=== PATIENT | female | born 1955 | race Caucasian/White ===

== ENCOUNTER → 2016-05-21 | Outpatient (CLI) | payer OTHER ==
[~2016-05-21] MED LIST: ADVIN50050 INH; ALPR-411 PO; ASPCH81X PO; CEPH500C PO; CMP10 PO; CYM/30 PO; DULO60CA44 PO; ESTCR PV; FLV1 PO; GABA600T PO; IPRA1AER2 INH; LDN500 PO; LIOT5TAB9 PO; METH2.5T PO; METH5TAB2 PO; MIRA100T PO; MORP30TA PO; MTH10 PO; MTH25 PO; ONDA4TAB10 SL; OXYM0.0592 NAE; POLY335019 PO; PREG1CAP70 PO; PRLSR20 PO; SUMA100T15 PO; TRAM-10 PO; TRAZ1TAB8 PO
== END | disposition home or self-care (01) ==
LOC: C.LABSPEC 05-14 15:22
DX: D64.9 Anemia, unspecified (principal)

== ENCOUNTER 2016-09-09 16:17 | Emergency (ER) | payer OTHER ==
[~2016-09-09] VITALS: Ht 167.6 cm; Wt 65.0 kg
[~2016-09-09 16:17] MED LIST changes: -ADVIN50050 INH; -ALPR-411 PO; -ASPCH81X PO; -CEPH500C PO; -CMP10 PO; -CYM/30 PO; -DULO60CA44 PO; -ESTCR PV; -FLV1 PO; -IPRA1AER2 INH; -LDN500 PO; -LIOT5TAB9 PO; -METH5TAB2 PO; -MIRA100T PO; -MTH25 PO; -ONDA4TAB10 SL; -OXYM0.0592 NAE; -POLY335019 PO; -PREG1CAP70 PO; -PRLSR20 PO; -SUMA100T15 PO; -TRAM-10 PO; -TRAZ1TAB8 PO
[2016-09-09 16:20] VITALS: TEMP 36.7; Ht 167.6 cm; Wt 65.0 kg
[2016-09-09] MEDS ORDERED: SODIUM CHLORIDE 0.9% 500ML 500 ML IV STA (16:32)
[2016-09-09] MEDS ORDERED: OPTIRAY 320 IV PRN (16:45)
[2016-09-09 16:54] LABS: BASO % 0.6 %; BASO ABS # 0.05 K/uL (0-0.2); COMPLETE YES; EOS % 4.8 %; HEMATOCRIT 33.3 % (37-47); IG% 0.3 %; LYMPH ABS # 2.86 K/uL (1.2-3.4); MEAN CELL VOLUME 98.8 fL (80-100); MEAN CORPUSCULAR HEMOGLOBIN 33.2 pg (25-34); MEAN CORPUSCULAR HGB CONC 33.6 g/dl (32-36); MONO % 7.4 %; NEUT % 50.9 %; PLATELET COUNT 417 K/uL (130-400); RED BLOOD COUNT 3.37 M/uL (4.2-5.4); WHITE BLOOD COUNT 7.95 K/uL (4.8-10.8)
[2016-09-09] MEDS ORDERED: FLV1 PO (16:57)
[2016-09-09 17:03] LABS: URINE APPEARANCE CLEAR (CLEAR); URINE BILIRUBIN NEG (NEG); URINE COLOR DK YELLOW; URINE EPITHELIAL CELL AUTO >30 /lpf (0-5); URINE NITRITE NEG (NEG); URINE SPECIFIC GRAVITY 1.023 (1.000-1.030); UROBILINOGEN NEG (NEG); ZZUR CULT IF INDIC CLEAN CATCH NO
[2016-09-09 17:05] LABS: MANUAL MICROSCOPIC REQUIRED? NO; REVIEW REQ? NO
[2016-09-09 17:17] LABS: BUN/CREATININE RATIO 21.1 (10-20); CALCIUM 8.4 mg/dl (8.5-10.1); CREATININE 0.66 mg/dl (0.60-1.20); POTASSIUM 3.6 mmol/L (3.5-5.1)
[2016-09-09 17:20] LABS: ALB/GLOB RATIO 0.9 (0.9-2)
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
--- NOTE | 2016-09-09 18:36 | DIAGNOSTIC IMAGING REPORT ---
ABDOMEN AND PELVIS CT WITH IV CONTRAST CT DOSE: 322.37 mGy.cm HISTORY: Pain mid abd pain, vomiting TECHNIQUE: Multiaxial CT images of the abdomen and pelvis were performed following the use of intravenous contrast. COMPARISON STUDY: 2015 FINDINGS: Minimal dependent basilar atelectasis. Stable biliary ductal dilatation as compared to the prior study. Increased fecal load throughout the colon consistent with a component of fecal stasis. Nonobstructive bowel pattern overall. Bladder is midline. Uterus is anteflexed. No significant free fluid within the pelvic cul-de-sac. IMPRESSION: 1. Mild increase in fecal load throughout the colon consistent with fecal stasis. 2. Stable chronic biliary ductal distention. 3. No acute process. Electronically signed by: Romario Webster M.D. 09/09/2016 6:35 PM Dictated Date/Time: 09/09/2016 6:32 PM
[2016-09-09 19:53] VITALS: BP 118/70; PULSE 62; O2SAT 98
--- NOTE | 2016-09-09 20:11 | EMERGENCY ROOM VISIT NOTE ---
ED Visit Note First contact with patient: 17:19 Patient was seen by our PA/STOCK CONTROLLER. I was involved in the patient's care and did evaluate the patient myself. I was involved in the care throughout the ER stay. The patient's workup suggests constipation as a cause for her symptoms. She is not toxic. She was concerned about a bowel obstruction but this is not the case. She is being discharged home.
[2016-11-15] MEDS ORDERED: ALPR-411 PO (08:57)
[2016-11-15] MEDS ORDERED: ADVIN50050 INH (08:57)
[2016-11-15] MEDS ORDERED: CYM/30 PO (08:57)
[2016-11-15] MEDS ORDERED: DULO60CA44 PO (08:57)
[2016-11-15] MEDS ORDERED: OXYM0.0592 NAE (08:57)
[2016-11-15] MEDS ORDERED: ASPCH81X PO (08:57)
[2016-11-15] MEDS ORDERED: CMP10 PO (09:01)
[2016-11-15] MEDS ORDERED: SUMA100T15 PO (09:01)
[2016-11-15] MEDS ORDERED: POLY335019 PO (09:01)
[2016-11-15] MEDS ORDERED: LDN500 PO (15:31)
[2016-11-15] MEDS ORDERED: TRAZ1TAB9 PO (15:31)
[2016-11-15] MEDS ORDERED: METH5TAB2 PO (16:52)
[2016-11-15] MEDS ORDERED: MTH25 PO (16:52)
[2016-11-15] MEDS ORDERED: LIOT5TAB9 PO (16:57)
[2016-11-15] MEDS ORDERED: MIRA100T PO (16:57)
[2016-11-15] MEDS ORDERED: ESTCR PV (16:57)
[2016-11-15] MEDS ORDERED: IPRA1AER2 INH (16:57)
== END 2016-09-09 19:55 | disposition home or self-care (01) ==
LOC: C.EDB 16:18 → C.EDC 19:55
DX: R10.9 Unspecified abdominal pain (principal); R11.2 Nausea with vomiting, unspecified; Z86.73 Personal history of transient ischemic attack (TIA), and cerebral infarction without residual deficits; Z79.82 Long term (current) use of aspirin; Z79.899 Other long term (current) drug therapy; Z88.8 Allergy status to other drugs, medicaments and biological substances; Z80.9 Family history of malignant neoplasm, unspecified; Z83.3 Family history of diabetes mellitus; Z82.49 Family history of ischemic heart disease and other diseases of the circulatory system

== ENCOUNTER 2016-09-20 15:30 | Emergency (ER) | payer OTHER ==
[~2016-09-20] VITALS: Ht 167.6 cm; Wt 65.0 kg
[~2016-09-20 15:30] MED LIST changes: +FLV1 PO; -METH2.5T PO; -MTH10 PO
[2016-09-20 15:33] VITALS: TEMP 36.6; Ht 167.6 cm; Wt 65.0 kg
[2016-09-20] MEDS ORDERED: SODIUM CHLORIDE 0.9% 1000ML 1,000 ML IV STA (16:36)
[2016-09-20] MEDS ORDERED: MoRPHine SULFATE 4 MG/ML 1 ML CARP\\VIAL IV STA (16:36)
[2016-09-20] MEDS ORDERED: ONDANSETRON INJ 2 MG/ML 2 ML VIAL IV STA (16:36)
[2016-09-20] MEDS ORDERED: OPTIRAY 320 IV PRN (16:45)
[2016-09-20 16:58] LABS: BASO % 0.6 %; BASO ABS # 0.07 K/uL (0-0.2); COMPLETE YES; EOS % 2.2 %; HEMATOCRIT 35.8 % (37-47); IG% 0.2 %; LYMPH % 29.6 %; LYMPH ABS # 3.33 K/uL (1.2-3.4); MEAN CELL VOLUME 98.4 fL (80-100); MEAN CORPUSCULAR HEMOGLOBIN 32.1 pg (25-34); MEAN CORPUSCULAR HGB CONC 32.7 g/dl (32-36); MEAN PLATELET VOLUME 9.2 fL (7.4-10.4); MONO % 9.4 %; PLATELET COUNT 552 K/uL (130-400); RED BLOOD COUNT 3.64 M/uL (4.2-5.4); WHITE BLOOD COUNT 11.24 K/uL (4.8-10.8)
[2016-09-20 17:18] LABS: URINE APPEARANCE CLEAR (CLEAR); URINE BILIRUBIN NEG (NEG); URINE COLOR YELLOW; URINE NITRITE NEG (NEG); URINE PH 5.5 (4.5-7.5); URINE SPECIFIC GRAVITY 1.021 (1.000-1.030); UROBILINOGEN NEG (NEG); ZZUR CULT IF INDIC CLEAN CATCH NO
[2016-09-20 17:25] LABS: ALT/SGPT 16 U/L (12-78); AST/SGOT 13 U/L (15-37); BLOOD UREA NITROGEN 16 mg/dl (7-18); BUN/CREATININE RATIO 20.3 (10-20); CALCIUM 8.4 mg/dl (8.5-10.1); CARBON DIOXIDE 33 mmol/L (21-32); CHLORIDE 106 mmol/L (98-107); CREATININE 0.77 mg/dl (0.60-1.20); GLUCOSE 111 mg/dl (70-99); POTASSIUM 3.7 mmol/L (3.5-5.1); SODIUM 144 mmol/L (136-145)
[2016-09-20 17:28] LABS: ALKALINE PHOSPHATASE 82 U/L (45-117)
[2016-09-20 17:30] LABS: MANUAL MICROSCOPIC REQUIRED? NO; REVIEW REQ? NO
--- NOTE | 2016-09-20 17:52 | DIAGNOSTIC IMAGING REPORT ---
ABDOMEN AND PELVIS CT WITH IV CONTRAST CT DOSE: 284.15 mGy.cm HISTORY: Pain. Nausea. diffuse abd pain TECHNIQUE: Multiaxial CT images of the abdomen and pelvis were performed following the use of intravenous contrast. COMPARISON STUDY: 09/09/2016 FINDINGS: No major change compared to the prior exam. Slight bibasilar interstitial change. Stable biliary ductal prominence compared to prior CT exams. Radiopaque content most likely representing ingested medication within the bowel. Mild reactive nonobstructive small bowel ileus. Increased fecal load within the proximal and transverse colonic region. Normal appendix. Uterus is anteflexed. Bladder is midline. There are no bladder calcifications. There is no free fluid within the pelvic cul-de-sac. IMPRESSION: 1. No change compared to the prior study. 2. Stable biliary ductal prominence compared to several prior CT exams. 3. Increased fecal load within the proximal and transverse colonic regions consistent with a component of fecal stasis Electronically signed by: Romario Webster M.D. 09/20/2016 5:51 PM Dictated Date/Time: 09/20/2016 5:46 PM
[2016-09-20 18:56] VITALS: BP 118/69; PULSE 67; O2SAT 93
--- NOTE | 2016-09-20 21:00 | EMERGENCY ROOM VISIT NOTE ---
History Report prepared by Paul: Kasia Fraga Under the Supervision of: Dr. Nikita Uribe D.O. First contact with patient: 16:25 Chief Complaint: ABDOMINAL PAIN Stated Complaint: SEVERE STOMACH PAINS Nursing Triage Summary: Pt presents with diffuse abd pain, worse in RUQ. Pt states seen here recently, has been using Miralax and Sennokot without relief. Nausea. History of Present Illness The patient is a 61 year old female who presents to the Emergency Room with complaints of worsening right upper quadrant abdominal pain that started 2 weeks ago. The pain is relieved with heat but nothing makes the pain worse. The patient states that she was seen in the ED 2 weeks ago for the same pain but it wasn't as severe at that time. She states that she was told that she was constipated and they told her to use Miralax. The patient talked to her PCP about her symptoms and they recommended starting Senokot. She states that she has been using Senokot without any relief of her pain and she states that her PCP told her to come into the ED if she did not experience any relief of her pain. The patient's last bowel movement was today. She denies fevers greater than 100.4, vomiting, and pain or burning with urination. The patient still has her gallbladder and appendix. 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 She states that she has experienced at least 5 bowel movements in the past, but with those she experiences vomiting and does not have bowel movements. Source of History: patient Onset: 2 weeks ago Position: abdomen (RUQ) Quality: other (RUQ abdominal pain) Timing: worsening Modifying Factors (Relieving): other (None) Associated Symptoms: No fevers, No vomiting, No urinary symptoms (pain or burning with urination ) Review of Systems See HPI for pertinent positives & negatives. A total of 10 systems reviewed and were otherwise negative. Past Medical & Surgical Medical Problems: (1) Fibromyalgia (2) History of stroke (3) Migraines Family History Cancer Diabetes mellitus Heart disease Hypertension Lung disease Social History Smoking Status: Never Smoker Alcohol Use: none Marital Status: Housing Status: lives with family Occupation Status: employed Current/Historical Medications Scheduled Alprazolam (Xanax), 3 TAB PO HS Aspirin (Aspirin Chewable), 81 MG PO HS Duloxetine HCl (Cymbalta), 1 CAP PO HS Duloxetine Hcl (Cymbalta), 60 MG PO HS Estradiol Vaginal (Estrace), 1 APPLN PV 2XWK Etodolac (Etodolac), 1 TAB PO BID Fluticasone Prop/Salmeterol (Advair Diskus 500-50 Mcg/Dose), 2 PUFF INH HS Folic Acid (Folic Acid), 2 MG PO DAILYBB Liothyronine Sodium (Liothyronine Sodium), 5 MCG PO BID Methadone Hcl (Dolophine), 15 MG PO DAILY Methotrexate (Methotrexate), 3 TAB PO WK Mirabegron (Myrbetriq Er), 25 MG PO DAILY Morphine Sulfate (Morphine Sulfate Ir), 1 TAB PO 5XD Omeprazole (Prilosec), 20 MG PO DAILY Oxymetazoline Hcl (Nasal [place]), 1 SPRY REY HS Polyethylene Glycol 3350 (Miralax), 17 GM PO HS Trazodone Hcl (Desyrel), 200 MG PO HS Scheduled PRN Gabapentin (Neurontin), 1,200 MG PO TID PRN for Pain Ipratropium-Albuterol (Combivent Respimat), 2 PUFFS INH Q4 PRN for SOB/Wheezing Prochlorperazine Maleate (Prochlorperazine Maleate), 1 DOSE PO BID PRN for WITH METHOTREXATE ON SUNDAYS Sumatriptan Succinate (Imitrex), 1 TAB PO DAILY PRN for Migraine Allergies Coded Allergies: Ethanol (Verified Allergy, Unknown, skin irritation, 07/23/16) Fentanyl (Verified Allergy, Unknown, skin irritation, 07/23/16) Physical Exam Vital Signs Date Time Temp Pulse Resp B/P (MAP) Pulse Ox O2 Delivery O2 Flow Rate FiO2 09/20/16 18:56 67 20 118/69 93 09/20/16 16:55 56 18 129/76 97 Room Air 09/20/16 15:33 36.6 69 16 105/70 98 Room Air Physical Exam GENERAL: alert, sitting up in bed, chronically ill appearing, well nourished, no acute distress, non-toxic EYE EXAM: normal conjunctiva OROPHARYNX: no exudate, no erythema, lips, buccal mucosa, and tongue normal and mucous membranes are moist NECK: supple, no nuchal rigidity, no adenopathy, non-tender LUNGS: Clear to auscultation. Normal chest wall mechanics HEART: no murmurs, S1 normal and S2 normal ABDOMEN: abdomen soft, non-tender, normo-active bowel sounds, no masses, no rebound or guarding. BACK: Back is symmetrical on inspection and there is no deformity, no midline tenderness, no CVA tenderness. SKIN: no rashes and no bruising UPPER EXTREMITIES: upper extremities are grossly normal. LOWER EXTREMITIES: No pitting edema. NEURO EXAM: Normal sensorium, cranial nerves II-XII grossly intact, normal speech, no gross weakness of arms, no gross weakness of legs. Medical Decision & Procedures ER Provider Diagnostic Interpretation: Radiology results as stated below per my review and the radiologist's interpretation: ABDOMEN AND PELVIS CT WITH IV CONTRAST FINDINGS: No major change compared to the prior exam. Slight bibasilar interstitial change. Stable biliary ductal prominence compared to prior CT exams. Radiopaque content most likely representing ingested medication within the bowel. Mild reactive nonobstructive small bowel ileus. Increased fecal load within the proximal and transverse colonic region. Normal appendix. Uterus is anteflexed. Bladder is midline. There are no bladder calcifications. There is no free fluid within the pelvic cul-de-sac. IMPRESSION: 1. No change compared to the prior study. 2. Stable biliary ductal prominence compared to several prior CT exams. 3. Increased fecal load within the proximal and transverse colonic regions consistent with a component of fecal stasis Electronically signed by: Romario Webster M.D. 09/20/2016 5:51 PM Dictated Date/Time: 09/20/2016 5:46 PM Laboratory Results 09/20/16 16:45 Red Blood Count 3.64, Mean Corpuscular Volume 98.4, Mean Corpuscular Hemoglobin 32.1, Mean Corpuscular Hemoglobin Concent 32.7, Mean Platelet Volume 9.2, Neutrophils (%) (Auto) 58.0, Lymphocytes (%) (Auto) 29.6, Monocytes (%) (Auto) 9.4, Eosinophils (%) (Auto) 2.2, Basophils (%) (Auto) 0.6, Neutrophils # (Auto) 6.51, Lymphocytes # (Auto) 3.33, Monocytes # (Auto) 1.06, Eosinophils # (Auto) 0.25, Basophils # (Auto) 0.07 09/20/16 16:45 Test 09/20/16 16:45 09/20/16 16:55 White Blood Count 11.24 K/uL (4.8-10.8) Red Blood Count 3.64 M/uL (4.2-5.4) Hemoglobin 11.7 g/dL (12.0-16.0) Hematocrit 35.8 % (37-47) Mean Corpuscular Volume 98.4 fL (80-100) Mean Corpuscular Hemoglobin 32.1 pg (25-34) Mean Corpuscular Hemoglobin Concent 32.7 g/dl (32-36) Platelet Count 552 K/uL (130-400) Mean Platelet Volume 9.2 fL (7.4-10.4) Neutrophils (%) (Auto) 58.0 % Lymphocytes (%) (Auto) 29.6 % Monocytes (%) (Auto) 9.4 % Eosinophils (%) (Auto) 2.2 % Basophils (%) (Auto) 0.6 % Neutrophils # (Auto) 6.51 K/uL (1.4-6.5) Lymphocytes # (Auto) 3.33 K/uL (1.2-3.4) Monocytes # (Auto) 1.06 K/uL (0.11-0.59) Eosinophils # (Auto) 0.25 K/uL (0-0.5) Basophils # (Auto) 0.07 K/uL (0-0.2) RDW Standard Deviation 55.6 fL (36.4-46.3) RDW Coefficient of Variation 15.4 % (11.5-14.5) Immature Granulocyte % (Auto) 0.2 % Immature Granulocyte # (Auto) 0.02 K/uL (0.00-0.02) Anion Gap 5.0 mmol/L (3-11) Est Creatinine Clear Calc Drug Dose 70.9 ml/min Estimated GFR () 95.9 Estimated GFR (Non- 82.8 BUN/Creatinine Ratio 20.3 (10-20) Calcium Level 8.4 mg/dl (8.5-10.1) Total Bilirubin 0.2 mg/dl (0.2-1) Direct Bilirubin < 0.1 mg/dl (0-0.2) Aspartate Amino Transf (AST/SGOT) 13 U/L (15-37) Alanine Aminotransferase (ALT/SGPT) 16 U/L (12-78) Alkaline Phosphatase 82 U/L (45-117) Total Protein 5.8 gm/dl (6.4-8.2) Albumin 2.8 gm/dl (3.4-5.0) Lipase 84 U/L (73-393) Urine Color YELLOW Urine Appearance CLEAR (CLEAR) Urine pH 5.5 (4.5-7.5) Urine Specific Center 1.021 (1.000-1.030) Urine Protein NEG (NEG) Urine Glucose (UA) NEG (NEG) Urine Ketones NEG (NEG) Urine Occult Blood NEG (NEG) Urine Nitrite NEG (NEG) Urine Bilirubin NEG (NEG) Urine Urobilinogen NEG (NEG) Urine Leukocyte Esterase NEG (NEG) Urine WBC (Auto) 1-5 /hpf (0-5) Urine RBC (Auto) 0-4 /hpf (0-4) Urine Hyaline Casts (Auto) 0 /lpf (0-5) Urine Epithelial Cells (Auto) 10-20 /lpf (0-5) Urine Bacteria (Auto) NEG (NEG) Laboratory results per my review. Medications Administered Medications (Trade) Dose Ordered Sig/Munir Route Start Time Stop Time Status Last Admin Dose Admin Sodium Chloride 1,000 ml @ 999 mls/hr Q1H1M STAT IV 09/20/16 16:36 09/20/16 17:36 DC 09/20/16 16:56 999 MLS/HR Ondansetron HCl (Zofran Inj) 4 mg NOW STAT IV 09/20/16 16:36 09/20/16 16:38 DC 09/20/16 16:56 4 MG Morphine Sulfate (MoRPHine SULFATE INJ) 4 mg NOW STAT IV 09/20/16 16:36 09/20/16 16:38 DC 09/20/16 16:56 4 MG ED Course ED COURSE: Vital signs were reviewed and showed normal. The patients medical record was reviewed The above diagnostic studies were performed and reviewed. ED treatments and interventions as stated above. 1629: The patient was evaluated in room B11. A complete history and physical examination was performed. 1636: Ordered Morphine Sulfate 4 mg IV, Zofran Inj 4 mg IV, Sodium Chloride 1000 ml @ 999 mls/hr IV 1822: Upon reevaluation, the patient is doing well. I discussed my findings with the patient and she understands and agrees with the treatment plan. Based on the patients age, coexisting illnesses, exam and lab findings the decision to treat as an outpatient was made. The patient remained stable while under my care. The patient appeared well at the time of discharge. Medical Decision Differential diagnoses includes but is not limited to gastritis, peptic ulcer disease, GERD, gallbladder disease, pancreatitis, small bowel obstruction, acute coronary syndrome, pericarditis, ischemic bowel, irritable bowel disease, irritable bowel syndrome, appendicitis, diverticulitis, malignancy, hernia, urinary tract infection, torsion, perforation, trauma, infectious. Medication Reconciliation: I attest that I have personally reviewed the patient' s current medication list. Blood pressure screening: Patient was found to have normal blood pressure on screening and does not require follow-up. Patient is a 61-year-old female who presents the ER for right upper quadrant/ epigastric abdominal tenderness. She notes that she was here several weeks ago for same complaint. CBC along with BMP, LFTs, bilirubin and lipase were unremarkable. UA was negative. CT around and pelvis shows no acute pathology. Patient was given IV fluids along with morphine and Zofran. She had improvement of her symptoms. CT did show a large stool burden. She is updated regards to this. She was discharged follow-up with her primary care doctor and instructed to take a MiraLAX prep as listed on her discharge structures. Discussed with Pt concerning signs and symptoms to watch out for. Pt was instructed to follow up with their PCP and discussed with the patient their option to return to the ED at anytime for persistent or worsening symptoms. The appropriate anticipatory guidance and out-patient management, including indications for return to the emergency department, were explained at length to the patient and understood. Impression Primary Impression: Periumbilical abdominal pain Additional Impression: Constipation Scribe Attestation The scribe's documentation has been prepared under my direction and personally reviewed by me in its entirety. I confirm that the note above accurately reflects all work, treatment, procedures, and medical decision making performed by me. Departure Information Dispostion Home / Self-Care Referrals Jesus Young Jr,D.O. (PCP) Forms HOME CARE DOCUMENTATION FORM, IMPORTANT VISIT INFORMATION Patient Instructions Abdominal Pain - [facility], [facility] Additional Instructions Please follow up with your primary care doctor with in the next 24 hours. Any worsening of your symptoms, please return to the ED immediately. This includes persistent nausea vomiting, worsening pain, passing out, blood in her stool, pain with urination, fevers greater than 100.4, or any other concerning signs or symptoms from your standpoint. Please take 250 g of MiraLAX mixed with 64 ounces of Gatorade. Please drink 8 ounces every 15-30 minutes until you have a bowel movement. Problem Qualifiers Additional Impression: Constipation Constipation type: unspecified constipation type Qualified Codes: K59.00 - Constipation, unspecified
[2016-11-15] MEDS ORDERED: ALPR-411 PO (08:57)
[2016-11-15] MEDS ORDERED: ADVIN50050 INH (08:57)
[2016-11-15] MEDS ORDERED: CYM/30 PO (08:57)
[2016-11-15] MEDS ORDERED: OXYM0.0592 NAE (08:57)
[2016-11-15] MEDS ORDERED: DULO60CA44 PO (08:57)
[2016-11-15] MEDS ORDERED: ASPCH81X PO (08:57)
[2016-11-15] MEDS ORDERED: POLY335019 PO (09:01)
[2016-11-15] MEDS ORDERED: SUMA100T15 PO (09:01)
[2016-11-15] MEDS ORDERED: CMP10 PO (09:01)
[2016-11-15] MEDS ORDERED: TRAZ1TAB9 PO (15:31)
[2016-11-15] MEDS ORDERED: LDN500 PO (15:31)
[2016-11-15] MEDS ORDERED: METH5TAB2 PO (16:52)
[2016-11-15] MEDS ORDERED: MTH25 PO (16:52)
[2016-11-15] MEDS ORDERED: ESTCR PV (16:57)
[2016-11-15] MEDS ORDERED: MIRA100T PO (16:57)
[2016-11-15] MEDS ORDERED: IPRA1AER2 INH (16:57)
[2016-11-15] MEDS ORDERED: LIOT5TAB9 PO (16:57)
== END 2016-09-20 18:57 | disposition home or self-care (01) ==
LOC: C.EDB 15:32
DX: R10.33 Periumbilical pain (principal); K59.00 Constipation, unspecified; Z82.3 Family history of stroke; Z79.82 Long term (current) use of aspirin; Z79.899 Other long term (current) drug therapy; Z88.8 Allergy status to other drugs, medicaments and biological substances; Z80.9 Family history of malignant neoplasm, unspecified; Z83.3 Family history of diabetes mellitus; Z82.49 Family history of ischemic heart disease and other diseases of the circulatory system

== ENCOUNTER 2016-10-24 19:25 | Emergency (ER) | payer OTHER ==
[~2016-10-24] VITALS: Ht 167.6 cm; Wt 57.8 kg
[2016-10-24 19:26] VITALS: TEMP 36.7; Ht 167.6 cm; Wt 57.8 kg
[2016-10-24] MEDS ORDERED: PROMETHAZINE HCL INJ 25 MG/ML 1 ML VIAL IV STA (19:42)
[2016-10-24] MEDS ORDERED: KETOROLAC TROMETHAMINE 30 MG/ML VIAL IV STA (19:42)
[2016-10-24] MEDS ORDERED: SODIUM CHLORIDE 0.9% 1000ML 1,000 ML IV STA (19:42)
[2016-10-24] MEDS ORDERED: HYDROmorphone INJ 2 MG/ML SYR/VIAL IV PRN (19:45)
[2016-10-24 19:51] LABS: BASO % 0.3 %; BASO ABS # 0.02 K/uL (0-0.2); COMPLETE YES; EOS % 0.3 %; HEMATOCRIT 37.1 % (37-47); IG% 0.1 %; LYMPH % 31.6 %; LYMPH ABS # 2.26 K/uL (1.2-3.4); MEAN CELL VOLUME 95.6 fL (80-100); MEAN CORPUSCULAR HEMOGLOBIN 33.5 pg (25-34); MEAN PLATELET VOLUME 9.2 fL (7.4-10.4); MONO % 5.5 %; NEUT % 62.2 %; PLATELET COUNT 616 K/uL (130-400); RED BLOOD COUNT 3.88 M/uL (4.2-5.4); WHITE BLOOD COUNT 7.15 K/uL (4.8-10.8)
[2016-10-24] MEDS ORDERED: HYDROmorphone INJ 0.5 MG/0.5 ML SYR ONE ×2 (19:52→21:16)
--- NOTE | 2016-10-24 19:54 | EMERGENCY ROOM VISIT NOTE ---
History Report prepared by Paul: Jose Dang Under the Supervision of: Dr. Eren Teague M.D. First contact with patient: 19:30 Chief Complaint: ABDOMINAL PAIN Stated Complaint: SEVERE ABD PAIN History of Present Illness The patient is a 61 year old female who presents to the Emergency Room with complaints of constant centralized abdominal pain beginning four days ago. She has a history of abdominal pain and states that her current pain feels similar to her previous pain. She has a history of a splenectomy and constipation. The patient denies any known fevers, vomiting, or cough. She rates her pain as a 9.5 /10 in severity and states that it worsens with eating. She complains of decreased urinary output and nausea. The patient states that she has not been eating or drinking much lately. She takes Methadone and Morphine for her pain, but has not been taking her Morphine as it upsets her stomach. Source of History: patient Onset: Four days ago Position: abdomen (centralized) Symptom Intensity: 9.5/10 Timing: constant Modifying Factors (Worsening): eating Associated Symptoms: + nausea, + urinary symptoms (decreased output), No fevers (known), No cough, No vomiting Review of Systems See HPI for pertinent positives & negatives. A total of 10 systems reviewed and were otherwise negative. Past Medical & Surgical Medical Problems: (1) Fibromyalgia (2) History of stroke (3) Migraines Family History Cancer Diabetes mellitus Heart disease Hypertension Lung disease Social History Smoking Status: Never Smoker Alcohol Use: none Marital Status: Housing Status: lives with family Occupation Status: employed Current/Historical Medications Scheduled Alprazolam (Xanax), 3 TAB PO HS Aspirin (Aspirin Chewable), 81 MG PO HS Duloxetine HCl (Cymbalta), 1 CAP PO HS Duloxetine Hcl (Cymbalta), 60 MG PO HS Estradiol Vaginal (Estrace), 1 APPLN PV 2XWK Etodolac (Etodolac), 1 TAB PO BID Fluticasone Prop/Salmeterol (Advair Diskus 500-50 Mcg/Dose), 2 PUFF INH HS Folic Acid (Folic Acid), 2 MG PO DAILYBB Liothyronine Sodium (Liothyronine Sodium), 5 MCG PO BID Methadone Hcl (Dolophine), 15 MG PO DAILY Methotrexate (Methotrexate), 3 TAB PO WK Mirabegron (Myrbetriq Er), 25 MG PO DAILY Morphine Sulfate (Morphine Sulfate Ir), 1 TAB PO 5XD Omeprazole (Prilosec), 20 MG PO DAILY Oxymetazoline Hcl (Nasal [place]), 1 SPRY REY HS Polyethylene Glycol 3350 (Miralax), 17 GM PO HS Trazodone Hcl (Desyrel), 200 MG PO HS Scheduled PRN Gabapentin (Neurontin), 1,200 MG PO TID PRN for Pain Ipratropium-Albuterol (Combivent Respimat), 2 PUFFS INH Q4 PRN for SOB/Wheezing Prochlorperazine Maleate (Prochlorperazine Maleate), 1 DOSE PO BID PRN for WITH METHOTREXATE ON SUNDAYS Sumatriptan Succinate (Imitrex), 1 TAB PO DAILY PRN for Migraine Allergies Coded Allergies: Ethanol (Verified Allergy, Unknown, skin irritation, 10/24/16) Fentanyl (Verified Allergy, Unknown, skin irritation, 10/24/16) Physical Exam Vital Signs Date Time Temp Pulse Resp B/P (MAP) Pulse Ox O2 Delivery O2 Flow Rate FiO2 10/24/16 21:04 79 20 113/85 97 Room Air 10/24/16 19:26 36.7 79 20 136/73 99 Room Air Physical Exam GENERAL: Patient is in no acute distress. HEENT: No acute trauma, normocephalic atraumatic, mucous membranes moist, no nasal congestion, no scleral icterus. NECK: No stridor, no adenopathy, no meningismus, trachea is midline. LUNGS: Clear to auscultation bilaterally, no wheeze, no rhonchi, breath sounds equal. HEART: Without murmurs gallops or rubs, regular rate and rhythm. ABDOMEN: Soft, mildly diffusely tender, bowel sounds positive and hyperactive, no hernias, no peritonitis. EXTREMITIES: No cyanosis or edema, full range of motion of all the joints without pain or difficulty, no signs for acute trauma. NEUROLOGIC: Oriented x 3, no acute motor or sensory deficits, no focal weakness. SKIN: No rash, no jaundice, no diaphoresis. Medical Decision & Procedures ER Provider Diagnostic Interpretation: X-ray results as stated below per interpretation by me and the radiologist: PA CHEST WITH ABDOMINAL SERIES FINDINGS: A PA chest radiograph is compared to study dated 06/11/2015. The patient is status post midline sternotomy. The cardiomediastinal silhouette is unremarkable. There is mild elevation of right hemidiaphragm with right basilar atelectasis. There is no airspace consolidation typical for pneumonia. No large pleural effusion or pneumothorax is seen. The skeletal structures are osteopenic. The bony thorax is grossly intact. Supine and erect abdominal radiographs are correlated with abdominal CT dated 09/20/2016. There is a nonobstructed abdominal bowel gas pattern. No evidence of intraperitoneal free air is seen. Numerous pill fragments project over the abdomen. Mild to moderate colonic fecal retention is observed. There are no abnormal abdominal calcifications. Phleboliths are observed in the pelvis. Lumbosacral spondylosis is observed. The bony pelvis appears intact. IMPRESSION: 1. No active disease in the chest. 2. Nonobstructed abdominal bowel gas pattern. 3. Numerous pill fragments project over the abdomen. Electronically signed by: Eren Gibson M.D. Laboratory Results 10/24/16 19:38 Red Blood Count 3.88, Mean Corpuscular Volume 95.6, Mean Corpuscular Hemoglobin 33.5, Mean Corpuscular Hemoglobin Concent 35.0, Mean Platelet Volume 9.2, Neutrophils (%) (Auto) 62.2, Lymphocytes (%) (Auto) 31.6, Monocytes (%) (Auto) 5.5, Eosinophils (%) (Auto) 0.3, Basophils (%) (Auto) 0.3, Neutrophils # (Auto) 4.45, Lymphocytes # (Auto) 2.26, Monocytes # (Auto) 0.39, Eosinophils # (Auto) 0.02, Basophils # (Auto) 0.02 10/24/16 19:38 Test 10/24/16 19:38 10/24/16 21:08 White Blood Count 7.15 K/uL (4.8-10.8) Red Blood Count 3.88 M/uL (4.2-5.4) Hemoglobin 13.0 g/dL (12.0-16.0) Hematocrit 37.1 % (37-47) Mean Corpuscular Volume 95.6 fL (80-100) Mean Corpuscular Hemoglobin 33.5 pg (25-34) Mean Corpuscular Hemoglobin Concent 35.0 g/dl (32-36) Platelet Count 616 K/uL (130-400) Mean Platelet Volume 9.2 fL (7.4-10.4) Neutrophils (%) (Auto) 62.2 % Lymphocytes (%) (Auto) 31.6 % Monocytes (%) (Auto) 5.5 % Eosinophils (%) (Auto) 0.3 % Basophils (%) (Auto) 0.3 % Neutrophils # (Auto) 4.45 K/uL (1.4-6.5) Lymphocytes # (Auto) 2.26 K/uL (1.2-3.4) Monocytes # (Auto) 0.39 K/uL (0.11-0.59) Eosinophils # (Auto) 0.02 K/uL (0-0.5) Basophils # (Auto) 0.02 K/uL (0-0.2) RDW Standard Deviation 50.2 fL (36.4-46.3) RDW Coefficient of Variation 14.5 % (11.5-14.5) Immature Granulocyte % (Auto) 0.1 % Immature Granulocyte # (Auto) 0.01 K/uL (0.00-0.02) Anion Gap 11.0 mmol/L (3-11) Est Creatinine Clear Calc Drug Dose 68.2 ml/min Estimated GFR () 94.4 Estimated GFR (Non- 81.5 BUN/Creatinine Ratio 18.1 (10-20) Calcium Level 9.4 mg/dl (8.5-10.1) Total Bilirubin 0.4 mg/dl (0.2-1) Aspartate Amino Transf (AST/SGOT) 12 U/L (15-37) Alanine Aminotransferase (ALT/SGPT) 28 U/L (12-78) Alkaline Phosphatase 92 U/L (45-117) Total Protein 6.6 gm/dl (6.4-8.2) Albumin 3.3 gm/dl (3.4-5.0) Globulin 3.3 gm/dl (2.5-4.0) Albumin/Globulin Ratio 1.0 (0.9-2) Lipase 101 U/L (73-393) Lactic Acid Level 2.4 mmol/L (0.4-2.0) Laboratory results reviewed by me. Medications Administered Medications (Trade) Dose Ordered Sig/Munir Route Start Time Stop Time Status Last Admin Dose Admin Promethazine HCl (Phenergan Inj) 12.5 mg NOW STAT IV 10/24/16 19:42 10/24/16 19:44 DC 10/24/16 19:58 12.5 MG Sodium Chloride 1,000 ml @ 200 mls/hr Q5H STAT IV 10/24/16 19:42 10/25/16 00:41 10/24/16 19:57 200 MLS/HR Ketorolac Tromethamine (Toradol Inj) 30 mg NOW STAT IV 10/24/16 19:42 10/24/16 19:44 DC 10/24/16 19:58 30 MG Hydromorphone HCl (Dilaudid Inj) 0.5 mg STK-MED ONCE .ROUTE 10/24/16 19:52 10/24/16 19:53 DC 10/24/16 19:58 0.5 MG Hydromorphone HCl (Dilaudid Inj) 0.5 mg STK-MED ONCE .ROUTE 10/24/16 21:16 10/24/16 21:17 DC 10/24/16 21:23 0.5 MG ECG Indication: abdominal pain Rate (beats per minute): 54 Rhythm: sinus bradycardia Findings: no acute ischemic change, no ectopy ED Course 1938: The patient was evaluated in room C3. A complete history and physical exam was performed. 1941: Ordered Toradol Inj 30 mg IV, Sodium Chloride 1000 ml @ 200 mls/hr IV, Phenergan Inj 12.5 mg IV. 1944: Ordered Dilaudid Inj 0.5 mg IV. 2229: The patient was signed out to Dr. Blevins at the change of shift pending CT results. Medical Decision The patient is a 61 year old female who presents to the ED with complaints of abdominal pain. Differential diagnoses considered include acute on chronic pain , constipation, viral illness, intestinal colic, bowel obstruction, UTI, pancreatitis, mesenteric ischemia, diverticulitis and dehydration. There is no leukocytosis or concerning anemia. No significant electrolyte abnormality, kidney failure, hepatitis or pancreatitis. Urinalysis result is pending. Obstruction series does not show pneumonia or bowel obstruction, some mild constipation was seen. Lactic acid level was elevated consistent with possible bowel ischemia versus dehydration. Abdominal and pelvis CT for mesenteric ischemia is pending. On exam, she was not toxic or febrile, there was no peritonitis. The patient received IV Toradol, IV saline, IV Dilaudid. She received IV Phenergan for nausea. The patient is feeling improved. We await the CT scan results. We await her urinalysis results. At this point, Dr. Blevins will assume care at the change of shift. Please see his notes for the results of the remaining tests and the patient's final disposition and plan. Impression Primary Impression: Diffuse abdominal pain Scribe Attestation The scribe's documentation has been prepared under my direction and personally reviewed by me in its entirety. I confirm that the note above accurately reflects all work, treatment, procedures, and medical decision making performed by me. Departure Information Dispostion Still a Patient (Signed out to Dr. Blevins) Referrals Jesus Young Jr,D.O. (PCP) Patient Instructions My [facility]
[2016-10-24 20:09] LABS: BUN/CREATININE RATIO 18.1 (10-20); CALCIUM 9.4 mg/dl (8.5-10.1); CREATININE 0.78 mg/dl (0.60-1.20); POTASSIUM 3.7 mmol/L (3.5-5.1)
--- NOTE | 2016-10-24 20:47 | DIAGNOSTIC IMAGING REPORT ---
PA CHEST WITH ABDOMINAL SERIES CLINICAL HISTORY: Generalized abdominal pain. FINDINGS: A PA chest radiograph is compared to study dated 06/11/2015. The patient is status post midline sternotomy. The cardiomediastinal silhouette is unremarkable. There is mild elevation of right hemidiaphragm with right basilar atelectasis. There is no airspace consolidation typical for pneumonia. No large pleural effusion or pneumothorax is seen. The skeletal structures are osteopenic. The bony thorax is grossly intact. Supine and erect abdominal radiographs are correlated with abdominal CT dated 09/20/2016. There is a nonobstructed abdominal bowel gas pattern. No evidence of intraperitoneal free air is seen. Numerous pill fragments project over the abdomen. Mild to moderate colonic fecal retention is observed. There are no abnormal abdominal calcifications. Phleboliths are observed in the pelvis. Lumbosacral spondylosis is observed. The bony pelvis appears intact. IMPRESSION: 1. No active disease in the chest. 2. Nonobstructed abdominal bowel gas pattern. 3. Numerous pill fragments project over the abdomen. Electronically signed by: Eren Gibson M.D. 10/24/2016 8:45 PM Dictated Date/Time: 10/24/2016 8:43 PM
[2016-10-24] MEDS ORDERED: METHYLPREDNISOLONE 125 MG VIAL IV STA (21:55)
[2016-10-24] MEDS ORDERED: DiphenhydrAMINE HCL 50 MG/ML VIAL IV STA (21:55)
--- NOTE | 2016-10-24 23:01 | EMERGENCY ROOM VISIT NOTE ---
ED Visit Note First contact with patient: 00:37 This patient was signed out to me or Dr. Teague at shift change. At that point the patient was awaiting a CTA of her abdomen. The game plan was to ensure that she does not have any sort of mesenteric ischemia or vascular problem and then discharge her to home if this was normal. She's had some chronic abdominal pain and weight loss. She's had several CAT scans. I talked the patient and seems comfortable she has a benign abdomen. She has been on chronic pain medications and they have been trying to wean her off. That maybe playing some role as well. The CAT scan was obtained there is no evidence suggest a vascular problem or mesenteric abnormality. She has chronic changes of her intestines which are unchanged from previous CAT scan and may be more of an ileus. I do think she should follow-up with her doctor tomorrow for recheck. She may ultimately want to see a hot roll inspector as well. I talked to the patient and her family about this. She feels good and would like to go home with think this is reasonable. She should return if: increasing pain, worsening of symptoms, fever or chills, any new problems or concerns.
[2016-10-25 00:44] VITALS: BP 143/78; PULSE 52; O2SAT 97
--- NOTE | 2016-10-25 07:44 | DIAGNOSTIC IMAGING REPORT ---
ANGIO ABD/PELVIS WITH CONTRAST CLINICAL HISTORY: 61 years-old Female presenting with possible mesenteric ischemia. TECHNIQUE: Multidetector CT of the abdomen and pelvis was performed after the administration of intravenous contrast. IV contrast: 117 mL of Optiray 320. COMPARISON: 09/20/2016. CT DOSE: The estimated cumulative dose is 289.13 mGy.cm. FINDINGS: Gerontological Nurse Practitioner topogram: Unremarkable. Lung bases: Minimal dependent opacities likely atelectasis. Normal heart size. No pericardial or pleural effusion. Evaluation of the abdominal viscera limited by arterial acquisition only. Liver: Normal morphology. Conventional hepatic arterial anatomy. No hypervascular liver lesion. Biliary: Intrahepatic and extra hepatobiliary ductal prominence is unchanged from the prior exam. Normal gallbladder. Pancreas: Mild pancreatic parenchymal atrophy. Spleen: Absent. Adrenal glands: Normal. Kidneys and ureters: Single main renal arteries bilaterally with patent origins. No hydronephrosis. Gastrointestinal tract: Multiple hyperdense ovoid foci noted in the bowel likely ingested medications. Mild gaseous distention of small bowel measuring up to 2.9 cm in diameter. Mild wall thickening of the terminal ileum and descending portion of the duodenum, although evaluation is limited by lack of oral contrast (series 2 image 49). No bowel obstruction. No pneumatosis. Peritoneal cavity: Trace free fluid in the retroperitoneum adjacent to the descending portion of the duodenum. No free fluid or intraperitoneal gas. Bladder: Incompletely evaluated secondary to underdistention. Pelvic organs: Uterus normal. Ovaries not well visualized. Vasculature: Mild atherosclerosis of the normal caliber abdominal aorta. Celiac, superior mesenteric, bilateral renal, and inferior mesenteric arteries patent. Bilateral common, internal, and external iliac arteries patent. Atherosclerosis although without significant narrowing of the bilateral common femoral arteries. Lymph nodes: Few prominent retroperitoneal left periaortic lymph nodes, which are subcentimeter, nonspecific. Abdominal wall: Normal. Musculoskeletal: Multilevel degenerative changes of the lumbar spine. Left pars interarticularis defect at L3, with pseudoarthrosis with the osseous fused L4-S1 right facet joints. L3 laminectomy defect. Although the spinous processes of L4 and L5 are also surgically absent, there is ossification along the expected L4-5 lamina, which could possibly indicate heterotopic ossification if laminectomies were also performed at these levels. No significant osseous spinal canal narrowing. No acute osseous injury. IMPRESSION: 1. No convincing evidence of mesenteric ischemia. Patent vasculature. 2. Mild wall thickening of the descending portion of the duodenum and terminal ileum could suggest enteritis, possibly infectious. Distention of small bowel without evidence of obstruction. This could suggest ileus read 3. Stable biliary ductal dilatation, which is of unclear etiology, possibly benign stricture at the ampulla. 4. Multiple hyperdense foci in the bowel, likely ingested medications. 5. Postsurgical and degenerative changes of the lower lumbar spine as above. Electronically signed by: Alo Akers 10/25/2016 7:43 AM Dictated Date/Time: 10/25/2016 7:24 AM
[2016-11-15] MEDS ORDERED: ALPR-411 PO (08:57)
[2016-11-15] MEDS ORDERED: OXYM0.0592 NAE (08:57)
[2016-11-15] MEDS ORDERED: CYM/30 PO (08:57)
[2016-11-15] MEDS ORDERED: ASPCH81X PO (08:57)
[2016-11-15] MEDS ORDERED: ADVIN50050 INH (08:57)
[2016-11-15] MEDS ORDERED: DULO60CA44 PO (08:57)
[2016-11-15] MEDS ORDERED: CMP10 PO (09:01)
[2016-11-15] MEDS ORDERED: SUMA100T15 PO (09:01)
[2016-11-15] MEDS ORDERED: POLY335019 PO (09:01)
[2016-11-15] MEDS ORDERED: LDN500 PO (15:31)
[2016-11-15] MEDS ORDERED: TRAZ1TAB8 PO (15:31)
[2016-11-15] MEDS ORDERED: METH5TAB2 PO (16:52)
[2016-11-15] MEDS ORDERED: MTH25 PO (16:52)
[2016-11-15] MEDS ORDERED: IPRA1AER2 INH (16:57)
[2016-11-15] MEDS ORDERED: ESTCR PV (16:57)
[2016-11-15] MEDS ORDERED: MIRA100T PO (16:57)
[2016-11-15] MEDS ORDERED: LIOT5TAB9 PO (16:57)
== END 2016-10-25 00:45 | disposition home or self-care (01) ==
LOC: C.EDB 19:25 → C.EDC 10-25 00:45
DX: R10.10 Upper abdominal pain, unspecified (principal); M79.7 Fibromyalgia; Z86.73 Personal history of transient ischemic attack (TIA), and cerebral infarction without residual deficits; G43.909 Migraine, unspecified, not intractable, without status migrainosus; Z80.9 Family history of malignant neoplasm, unspecified; Z83.3 Family history of diabetes mellitus; Z82.49 Family history of ischemic heart disease and other diseases of the circulatory system; Z83.6 Family history of other diseases of the respiratory system; Z79.82 Long term (current) use of aspirin; Z79.899 Other long term (current) drug therapy

== ENCOUNTER → 2016-11-04 | Outpatient (CLI) | payer OTHER ==
[~2016-11-04] MED LIST changes: +ADVIN50050 INH; +ALPR-411 PO; +ASPCH81X PO; +CEPH500C PO; +CMP10 PO; +CYM/30 PO; +DULO60CA44 PO; +ESTCR PV; +IPRA1AER2 INH; +LDN500 PO; +LIOT5TAB9 PO; +METH5TAB2 PO; +MIRA100T PO; +MTH25 PO; +ONDA4TAB10 SL; +OXYM0.0592 NAE; +POLY335019 PO; +PREG1CAP70 PO; +PRLSR20 PO; +SUMA100T15 PO; +TRAM-10 PO; +TRAZ1TAB8 PO
--- NOTE | 2016-11-04 13:30 | DIAGNOSTIC IMAGING REPORT ---
KUB CLINICAL HISTORY: CONSTIPATION, PT TO LAB FIRST COMPARISON STUDY: 10/24/2016 FINDINGS: Nonobstructive bowel pattern. Pelvic fragments throughout the bowel and colon. Mild fecal content within the within the a sending colon within normal range. Considerable degenerative change of the lumbar spine. IMPRESSION: 1. Nonobstructive bowel pattern. Fecal load is within normal limits. The above report was generated using voice recognition software. It may contain grammatical, syntax or spelling errors. Electronically signed by: Romario Webster M.D. 11/04/2016 1:29 PM Dictated Date/Time: 11/04/2016 1:25 PM
[2016-11-04 14:31] LABS: BASO % 0.8 %; BASO ABS # 0.06 K/uL (0-0.2); COMPLETE YES; HEMATOCRIT 33.3 % (37-47); IG% 0.3 %; LYMPH % 43.4 %; LYMPH ABS # 3.36 K/uL (1.2-3.4); MEAN CELL VOLUME 97.7 fL (80-100); MEAN CORPUSCULAR HEMOGLOBIN 32.6 pg (25-34); MEAN CORPUSCULAR HGB CONC 33.3 g/dl (32-36); MEAN PLATELET VOLUME 9.8 fL (7.4-10.4); MONO % 5.6 %; NEUT % 45.9 %; PLATELET COUNT 471 K/uL (130-400); RED BLOOD COUNT 3.41 M/uL (4.2-5.4); WHITE BLOOD COUNT 7.74 K/uL (4.8-10.8)
[2016-11-04 14:38] LABS: URINE APPEARANCE CLOUDY (CLEAR); URINE COLOR DK YELLOW; URINE EPITHELIAL CELL AUTO >30 /lpf (0-5); URINE NITRITE NEG (NEG); URINE PH 5.5 (4.5-7.5); URINE SPECIFIC GRAVITY 1.023 (1.000-1.030); UROBILINOGEN NEG (NEG)
[2016-11-04 14:42] LABS: MANUAL MICROSCOPIC REQUIRED? NO; REVIEW REQ? YES
[2016-11-04 14:48] LABS: URINE BILIRUBIN NEG (NEG)
[2016-11-04 15:07] LABS: ALT/SGPT 28 U/L (12-78); BLOOD UREA NITROGEN 11 mg/dl (7-18); BUN/CREATININE RATIO 16.2 (10-20); CALCIUM 9.1 mg/dl (8.5-10.1); CARBON DIOXIDE 32 mmol/L (21-32); CHLORIDE 107 mmol/L (98-107); CREATININE 0.66 mg/dl (0.60-1.20); GLUCOSE 85 mg/dl (70-99); POTASSIUM 3.7 mmol/L (3.5-5.1); SODIUM 143 mmol/L (136-145)
[2016-11-04 15:10] LABS: ALB/GLOB RATIO 0.9 (0.9-2); ALKALINE PHOSPHATASE 68 U/L (45-117); AST/SGOT 16 U/L (15-37)
--- NOTE | 2016-11-11 10:38 | CODING QUERY MEDICAL NECESSITY ---
CQSUPPORTING DIAGNOSIS NEEDED A supporting diagnosis is required for the test/procedure performed on this patient in order for us to be reimbursed by the patient's insurance. Please provide a supporting diagnosis for the following test/procedure listed below next to the test name along with your signature. *If there is no additional diagnosis for this patient that would support the following test/procedure please document that below next to the test/procedure. Test(s)/Procedure(s) that require a supporting diagnosis: JOHNATHAN 11/04/16 URINE CULTURE Provider Signature: Date: Thank you Zahra Garcia [employer] Information Management Once completed, please kindly fax back to [phone] For questions please call [phone]
== END | disposition home or self-care (01) ==
LOC: C.LAB 12:46
DX: K59.00 Constipation, unspecified (principal); R10.9 Unspecified abdominal pain

== ENCOUNTER 2016-11-15 18:03 | Emergency (ER) | payer OTHER ==
[~2016-11-15] VITALS: Ht 167.6 cm; Wt 58.6 kg
[~2016-11-15 18:03] MED LIST changes: -CEPH500C PO; -ONDA4TAB10 SL; -PREG1CAP70 PO; -PRLSR20 PO; -TRAM-10 PO
[2016-11-15 18:09] VITALS: Ht 167.6 cm; Wt 58.6 kg
[2016-11-15] MEDS ORDERED: SODIUM CHLORIDE 0.9% 1000ML 1,000 ML IV STA (19:39)
[2016-11-15] MEDS ORDERED: KETOROLAC TROMETHAMINE 30 MG/ML VIAL IV STA (19:42)
[2016-11-15] MEDS ORDERED: ONDANSETRON INJ 2 MG/ML 2 ML VIAL IV STA (19:42)
--- NOTE | 2016-11-15 19:45 | EMERGENCY ROOM VISIT NOTE ---
History Report prepared by Paul: Yuliana Jones Under the Supervision of: Dr. Aline Barroso M.D. First contact with patient: 19:17 Chief Complaint: ABDOMINAL PAIN Stated Complaint: ABD PAIN Nursing Triage Summary: Bilateral lower abdominal pain / "all summer". PCP thought it was diverticulitis, was treated with abx but pain persists. Pt also reports loss of appetite and 20 lb weight loss. Denies N/V/D. History of Present Illness The patient is a 61 year old female who presents to the Emergency Room with complaints of constant abdominal pain beginning 2 months ago. The patient states that she has had abdominal pain all summer that she rates as a 9/10 in severity. She reports that she is on Methadone for chronic pain and her PCP is retiring and has been slowly taking her off of the medication. She notes that he thought he may be taking her off of it too fast and since increasing her dose she has not had any relief of her symptoms. The patient states that her PCP is concerned that she may have diverticulitis. She notes that she has had 3 CT scans this summer and has had a weight loss of 20 pounds. She reports that she is on Methotrexate for arthritis, Xanax, Cymbalta, and Gabapentin that she states she has not been taking. The patient denies any nausea, vomiting, and diarrhea. She states that eating worsens her pain significantly and she does not eat often. She complains of weakness. Source of History: patient Onset: 2 months ago Position: abdomen Symptom Intensity: 10 Timing: constant Modifying Factors (Worsening): eating Associated Symptoms: + weakness, No nausea, No vomiting, No diarrhea Review of Systems See HPI for pertinent positives & negatives. A total of 10 systems reviewed and were otherwise negative. Past Medical & Surgical Medical Problems: (1) Fibromyalgia (2) History of stroke (3) Migraines Family History Cancer Diabetes mellitus Heart disease Hypertension Lung disease Social History Smoking Status: Never Smoker Alcohol Use: none Marital Status: Housing Status: lives with family Occupation Status: employed Current/Historical Medications Scheduled Alprazolam (Xanax), 3 TAB PO HS Aspirin (Aspirin Chewable), 81 MG PO HS Duloxetine HCl (Cymbalta), 1 CAP PO HS Duloxetine Hcl (Cymbalta), 60 MG PO HS Estradiol Vaginal (Estrace), 1 APPLN PV 2XWK Etodolac (Etodolac), 1 TAB PO QPM Fluticasone Prop/Salmeterol (Advair Diskus 500-50 Mcg/Dose), 2 PUFF INH HS Folic Acid (Folic Acid), 4 MG PO QPM Liothyronine Sodium (Liothyronine Sodium), 5 MCG PO BID Methadone Hcl (Dolophine), 20 MG PO DAILY Methotrexate (Methotrexate), 3 TAB PO WK Mirabegron (Myrbetriq Er), 25 MG PO DAILY Morphine Sulfate (Morphine Sulfate Ir), 1 TAB PO 5XD Omeprazole (Prilosec), 20 MG PO DAILY Oxymetazoline Hcl (Nasal Brain[place]), 1 SPRY REY HS Trazodone Hcl (Desyrel), 200 MG PO HS Scheduled PRN Ipratropium-Albuterol (Combivent Respimat), 2 PUFFS INH Q4 PRN for SOB/Wheezing Polyethylene Glycol 3350 (Miralax), 17 GM PO HS PRN for Constipation Prochlorperazine Maleate (Prochlorperazine Maleate), 1 DOSE PO BID PRN for WITH METHOTREXATE ON SUNDAYS Sumatriptan Succinate (Imitrex), 1 TAB PO DAILY PRN for Migraine Allergies Coded Allergies: Ethanol (Verified Allergy, Unknown, skin irritation, 10/24/16) Fentanyl (Verified Allergy, Unknown, skin irritation, 10/24/16) Physical Exam Vital Signs Date Time Temp Pulse Resp B/P (MAP) Pulse Ox O2 Delivery O2 Flow Rate FiO2 11/15/16 21:41 36.6 53 20 147/82 100 11/15/16 21:33 53 20 11/15/16 21:31 147/82 11/15/16 21:03 48 17 100 11/15/16 21:01 156/79 11/15/16 20:33 48 13 91 11/15/16 20:31 157/84 11/15/16 20:06 47 11/15/16 20:01 148/90 11/15/16 19:58 48 14 147/87 100 Room Air 11/15/16 18:09 36.6 53 18 115/67 100 Room Air Physical Exam Vital signs reviewed. General: Chronically-ill appearing, in no significant distress. HEENT: No scleral icterus, PERRLA, neck supple. Atraumatic. Cardiovascular: Regular rate and rhythm, no extra sounds. Pulmonary: Clear to auscultation bilaterally, normal work of breathing. Abdomen: Soft, nontender, nondistended, positive bowel sounds. Musculoskeletal: Atraumatic, no peripheral edema. Neurologic: Patient awake alert and oriented x 3 Skin: Warm, dry, no rash Medical Decision & Procedures Laboratory Results 11/15/16 19:54 Red Blood Count 3.70, Mean Corpuscular Volume 95.7, Mean Corpuscular Hemoglobin 33.0, Mean Corpuscular Hemoglobin Concent 34.5, Mean Platelet Volume 9.9, Neutrophils (%) (Auto) 72.4, Lymphocytes (%) (Auto) 21.3, Monocytes (%) (Auto) 5.9, Eosinophils (%) (Auto) 0.0, Basophils (%) (Auto) 0.2, Neutrophils # (Auto) 7.01, Lymphocytes # (Auto) 2.06, Monocytes # (Auto) 0.57, Eosinophils # (Auto) 0.00, Basophils # (Auto) 0.02 11/15/16 19:54 Test 11/15/16 19:54 White Blood Count 9.68 K/uL (4.8-10.8) Red Blood Count 3.70 M/uL (4.2-5.4) Hemoglobin 12.2 g/dL (12.0-16.0) Hematocrit 35.4 % (37-47) Mean Corpuscular Volume 95.7 fL (80-100) Mean Corpuscular Hemoglobin 33.0 pg (25-34) Mean Corpuscular Hemoglobin Concent 34.5 g/dl (32-36) Platelet Count 467 K/uL (130-400) Mean Platelet Volume 9.9 fL (7.4-10.4) Neutrophils (%) (Auto) 72.4 % Lymphocytes (%) (Auto) 21.3 % Monocytes (%) (Auto) 5.9 % Eosinophils (%) (Auto) 0.0 % Basophils (%) (Auto) 0.2 % Neutrophils # (Auto) 7.01 K/uL (1.4-6.5) Lymphocytes # (Auto) 2.06 K/uL (1.2-3.4) Monocytes # (Auto) 0.57 K/uL (0.11-0.59) Eosinophils # (Auto) 0.00 K/uL (0-0.5) Basophils # (Auto) 0.02 K/uL (0-0.2) RDW Standard Deviation 51.1 fL (36.4-46.3) RDW Coefficient of Variation 14.6 % (11.5-14.5) Immature Granulocyte % (Auto) 0.2 % Immature Granulocyte # (Auto) 0.02 K/uL (0.00-0.02) Urine Color DK YELLOW Urine Appearance CLEAR (CLEAR) Urine pH 7.0 (4.5-7.5) Urine Specific [place] 1.032 (1.000-1.030) Urine Protein 1+ (NEG) Urine Glucose (UA) NEG (NEG) Urine Ketones 1+ (NEG) Urine Occult Blood NEG (NEG) Urine Nitrite NEG (NEG) Urine Bilirubin NEG (NEG) Urine Urobilinogen NEG (NEG) Urine Leukocyte Esterase SMALL (NEG) Urine WBC (Auto) 5-10 /hpf (0-5) Urine RBC (Auto) 5-10 /hpf (0-4) Urine Hyaline Casts (Auto) 10-30 /lpf (0-5) Urine Epithelial Cells (Auto) >30 /lpf (0-5) Urine Bacteria (Auto) 1+ (NEG) Urine Renal Epithelial Cells /lpf (0-5) Urine Mucus PRESENT (NONE PRSENT) Anion Gap 7.0 mmol/L (3-11) Est Creatinine Clear Calc Drug Dose 64.2 ml/min Estimated GFR () 86.3 Estimated GFR (Non- 74.5 BUN/Creatinine Ratio 15.7 (10-20) Calcium Level 9.4 mg/dl (8.5-10.1) Magnesium Level 2.0 mg/dl (1.8-2.4) Total Bilirubin 0.4 mg/dl (0.2-1) Direct Bilirubin 0.1 mg/dl (0-0.2) Aspartate Amino Transf (AST/SGOT) 13 U/L (15-37) Alanine Aminotransferase (ALT/SGPT) 22 U/L (12-78) Alkaline Phosphatase 74 U/L (45-117) Total Protein 6.3 gm/dl (6.4-8.2) Albumin 2.9 gm/dl (3.4-5.0) Lipase 107 U/L (73-393) Laboratory results per my review. Medications Administered Medications (Trade) Dose Ordered Sig/Munir Route Start Time Stop Time Status Last Admin Dose Admin Sodium Chloride 1,000 ml @ 999 mls/hr Q1H1M STAT IV 11/15/16 19:39 11/15/16 20:39 DC 11/15/16 19:39 999 MLS/HR Ketorolac Tromethamine (Toradol Inj) 30 mg NOW STAT IV 11/15/16 19:42 11/15/16 19:44 DC 11/15/16 19:42 30 MG Ondansetron HCl (Zofran Inj) 4 mg NOW STAT IV 11/15/16 19:42 11/15/16 19:44 DC 11/15/16 19:42 4 MG ED Course 1916: Past medical records reviewed. The patient was evaluated in room A10. A complete history and physical examination was performed. 1938: Sodium Chloride 1000 ml @ 999 mls/hr IV. 1931: Zofran Inj 4mg IV, Toradol Inj 30mg IV. 2119: I reevaluated and updated the patient. She asked for a Toradol prescription that I declined. 2133: Upon reevaluation, the patient appeared to have improvement of her symptoms. I discussed findings with the patient. She verbalized agreement of the treatment plan. The patient was discharged home. Medical Decision Differential diagnosis: Etiologies such as appendicitis, diverticulitis, PUD, biliary pathology, UTI, pancreatitis, obstruction, mesenteric ischemia, aortic pathology, infections, inflammatory bowel disease, renal colic, as well as others were entertained. This patient was evaluated and appeared to be in no significant distress. IV access was obtained and laboratory work was drawn. The patient was placed on the school bus monitor and found to be in a normal sinus rhythm. She was hydrated with normal saline solution, given IV Toradol and Zofran. She states this did help her. Records were reviewed and the patient has had several CT scans of the abdomen and pelvis with the last several months. I do not feel that her presentation today is acutely different. Patient was encouraged to continue tapering off of her narcotics and other medications as they are likely contributing to a sluggish bowel/stomach. Patient will follow-up with her primary care physician this week. She will consider pain management referral. Patient was also encouraged to be evaluated by gastroenterology. She will return to the ER for worsening of symptoms or any medical concerns. Medication Reconcilliation Current Medication List: was personally reviewed by me Blood Pressure Screening Patient's blood pressure: Normal blood pressure Blood pressure disposition: Referred to PCP Impression Primary Impression: Chronic narcotic dependence Additional Impression: Chronic generalized abdominal pain Scribe Attestation The scribe's documentation has been prepared under my direction and personally reviewed by me in its entirety. I confirm that the note above accurately reflects all work, treatment, procedures, and medical decision making performed by me. Departure Information Dispostion Home / Self-Care Referrals Jesus Young Jr,D.O. (PCP) Forms HOME CARE DOCUMENTATION FORM, IMPORTANT VISIT INFORMATION Patient Instructions [facility] Additional Instructions Diagnosis: Chronic narcotic dependency, acute exacerbation of chronic abdominal pain. Please continued to taper your medications slowly. Follow-up with your primary care physician this week for reevaluation. Consider pain management clinic to assist with your chronic pain needs. Follow-up with gastroenterology for further evaluation. Return to the ER for worsening of symptoms or any medical concerns. Problem Qualifiers
[2016-11-15 20:05] LABS: BASO % 0.2 %; BASO ABS # 0.02 K/uL (0-0.2); COMPLETE YES; HEMATOCRIT 35.4 % (37-47); IG% 0.2 %; LYMPH % 21.3 %; LYMPH ABS # 2.06 K/uL (1.2-3.4); MEAN CELL VOLUME 95.7 fL (80-100); MEAN CORPUSCULAR HGB CONC 34.5 g/dl (32-36); MEAN PLATELET VOLUME 9.9 fL (7.4-10.4); MONO % 5.9 %; NEUT % 72.4 %; PLATELET COUNT 467 K/uL (130-400); WHITE BLOOD COUNT 9.68 K/uL (4.8-10.8)
[2016-11-15 20:21] LABS: URINE APPEARANCE CLEAR (CLEAR); URINE COLOR DK YELLOW; URINE EPITHELIAL CELL AUTO >30 /lpf (0-5); URINE NITRITE NEG (NEG); URINE SPECIFIC GRAVITY 1.032 (1.000-1.030); UROBILINOGEN NEG (NEG)
[2016-11-15 20:33] LABS: BUN/CREATININE RATIO 15.7 (10-20); CALCIUM 9.4 mg/dl (8.5-10.1); CREATININE 0.84 mg/dl (0.60-1.20); POTASSIUM 3.5 mmol/L (3.5-5.1)
[2016-11-15 20:34] LABS: MANUAL MICROSCOPIC REQUIRED? NO; REVIEW REQ? YES; URINE BILIRUBIN NEG (NEG)
[2016-11-15 20:36] LABS: URINE MUCUS PRESENT (NONE PRSENT); ZZUR CULT IF INDIC CLEAN CATCH YES
[2016-11-15] MEDS ORDERED: PRLSR20 PO (20:41)
[2016-11-15 21:41] VITALS: BP 147/82; PULSE 53; TEMP 36.6; O2SAT 100
== END 2016-11-15 21:42 | disposition home or self-care (01) ==
LOC: C.EDB 18:04 → C.EDA 21:42
DX: F11.20 Opioid dependence, uncomplicated (principal); R10.84 Generalized abdominal pain; G89.29 Other chronic pain; M79.7 Fibromyalgia; Z86.73 Personal history of transient ischemic attack (TIA), and cerebral infarction without residual deficits; Z79.82 Long term (current) use of aspirin; Z83.3 Family history of diabetes mellitus; Z82.49 Family history of ischemic heart disease and other diseases of the circulatory system

== ENCOUNTER 2016-12-06 15:11 | Emergency (ER) | payer OTHER ==
[~2016-12-06] VITALS: Ht 167.6 cm; Wt 55.0 kg
[~2016-12-06 15:11] MED LIST changes: -GABA600T PO; +PRLSR20 PO
[2016-12-06 15:20] VITALS: TEMP 36.4; Ht 167.6 cm; Wt 55.0 kg
[2016-12-06] MEDS ORDERED: ONDANSETRON INJ 2 MG/ML 2 ML VIAL IV STA (17:25)
[2016-12-06] MEDS ORDERED: IBUPROFEN 200 MG TAB PO STA (17:25)
[2016-12-06] MEDS ORDERED: ACETAMINOPHEN 325 MG TAB PO STA (17:25)
[2016-12-06] MEDS ORDERED: SODIUM CHLORIDE 0.9% 1000ML 1,000 ML IV STA (17:25)
--- NOTE | 2016-12-06 17:25 | EMERGENCY ROOM VISIT NOTE ---
History Report prepared by Paul: Therese Bellamy Under the Supervision of: Dr. Willie Srivastava M.D. First contact with patient: 17:12 Chief Complaint: ABDOMINAL PAIN Stated Complaint: STOMACH PAIN History of Present Illness The patient is a 61 year old white female with a past medical history of asthma , arthritis, fibromyalgia, CVA, who presents to the ED with a cc of worsening abdominal pain beginning 4 days ago. She reports she has experienced abdominal pain for several months, but in the past 4 days it has worsened. She describes the pain as feeling like "severe cramps" and rates it as a 9.5/10 in severity. Positive nausea. Negative recent travel, sick contacts, fevers, sore throat, cough, diarrhea, vaginal bleeding, abnormal vaginal discharge, urinary symptoms. Her last bowel movement was this morning and normal. Her only previous abdominal surgery is a splenectomy. The patient is currently taking Methadone for chronic pain but states she is trying to get off it. Source of History: patient Onset: 4 days [employer] Position: abdomen Symptom Intensity: 9.5/10 Quality: cramping Timing: worsening Associated Symptoms: + nausea, No fevers, No sorethroat, No cough, No diarrhea, No urinary symptoms Review of Systems See HPI for pertinent positives and negatives. A total of ten systems were reviewed and were otherwise negative. Past Medical & Surgical Medical Problems: (1) Fibromyalgia (2) History of stroke (3) Migraines Surgical Problems: (1) History of splenectomy Family History Cancer Diabetes mellitus Heart disease Hypertension Lung disease Social History Smoking Status: Never Smoker Alcohol Use: none Drug Use: none Marital Status: Housing Status: lives with family Occupation Status: employed Current/Historical Medications Scheduled Alprazolam (Xanax), 3 TAB PO HS Aspirin (Aspirin Chewable), 81 MG PO HS Cephalexin Monohydrate (Keflex), 500 MG PO BID Duloxetine HCl (Cymbalta), 1 CAP PO HS Duloxetine Hcl (Cymbalta), 60 MG PO HS Etodolac (Etodolac), 1 TAB PO QPM Fluticasone Prop/Salmeterol (Advair Diskus 500-50 Mcg/Dose), 2 PUFF INH HS Folic Acid (Folic Acid), 4 MG PO QPM Liothyronine Sodium (Liothyronine Sodium), 5 MCG PO BID Methadone Hcl (Dolophine), 20 MG PO DAILY Methotrexate (Methotrexate), 3 TAB PO WK Mirabegron (Myrbetriq Er), 25 MG PO DAILY Morphine Sulfate (Morphine Sulfate Ir), 1 TAB PO 5XD Omeprazole (Prilosec), 20 MG PO DAILY Ondasetron Odt (Zofran Odt), 4 MG SL Q6H Oxymetazoline Hcl (Nasal [place]), 1 SPRY REY HS Trazodone Hcl (Desyrel), 200 MG PO HS Scheduled PRN Ipratropium-Albuterol (Combivent Respimat), 2 PUFFS INH Q4 PRN for SOB/Wheezing Polyethylene Glycol 3350 (Miralax), 17 GM PO HS PRN for Constipation Prochlorperazine Maleate (Prochlorperazine Maleate), 1 DOSE PO BID PRN for WITH METHOTREXATE ON SUNDAYS Sumatriptan Succinate (Imitrex), 1 TAB PO DAILY PRN for Migraine Tramadol (Ultram), 25 MG PO Q8H PRN for Pain Allergies Coded Allergies: Ethanol (Verified Allergy, Unknown, skin irritation, 12/06/16) Fentanyl (Verified Allergy, Unknown, skin irritation, 12/06/16) Physical Exam Vital Signs Date Time Temp Pulse Resp B/P (MAP) Pulse Ox O2 Delivery O2 Flow Rate FiO2 12/06/16 20:31 65 18 151/89 98 12/06/16 19:53 61 18 136/86 97 Room Air 12/06/16 17:40 74 16 132/83 98 Room Air 12/06/16 15:20 36.4 75 18 125/85 94 Room Air Physical Exam GENERAL: Awake, alert, well-appearing, thin, NAD HENT: Normocephalic, atraumatic. EYES: Normal conjunctiva. Sclera non-icteric. NECK: Supple. No nuchal rigidity. FROM. RESPIRATORY: CTAB, no rhonchi, wheezing, crackles CARDIAC: RRR, no MRG ABDOMEN: Soft, some suprapubic tenderness that is greater than both RLQ or LLQ tenderness to palpation. No flank pain. -Obturators, -psoas. BS+ MSK: No chest wall TTP, no LE edema NEURO: GCS 15, CN 2-12 intact, moves all 4s on command SKIN: No rash or jaundice noted. Medical Decision & Procedures Laboratory Results 12/06/16 17:46 Red Blood Count 4.17, Mean Corpuscular Volume 96.6, Mean Corpuscular Hemoglobin 33.6, Mean Corpuscular Hemoglobin Concent 34.7, Mean Platelet Volume 10.2, Neutrophils (%) (Auto) 71.5, Lymphocytes (%) (Auto) 18.2, Monocytes (%) (Auto) 8.8, Eosinophils (%) (Auto) 1.0, Basophils (%) (Auto) 0.2, Neutrophils # (Auto) 11.84, Lymphocytes # (Auto) 3.01, Monocytes # (Auto) 1.45, Eosinophils # (Auto) 0.16, Basophils # (Auto) 0.04 12/06/16 17:46 Test 12/06/16 17:46 12/06/16 19:06 12/06/16 19:19 White Blood Count 16.55 K/uL (4.8-10.8) Red Blood Count 4.17 M/uL (4.2-5.4) Hemoglobin 14.0 g/dL (12.0-16.0) Hematocrit 40.3 % (37-47) Mean Corpuscular Volume 96.6 fL (80-100) Mean Corpuscular Hemoglobin 33.6 pg (25-34) Mean Corpuscular Hemoglobin Concent 34.7 g/dl (32-36) Platelet Count 429 K/uL (130-400) Mean Platelet Volume 10.2 fL (7.4-10.4) Neutrophils (%) (Auto) 71.5 % Lymphocytes (%) (Auto) 18.2 % Monocytes (%) (Auto) 8.8 % Eosinophils (%) (Auto) 1.0 % Basophils (%) (Auto) 0.2 % Neutrophils # (Auto) 11.84 K/uL (1.4-6.5) Lymphocytes # (Auto) 3.01 K/uL (1.2-3.4) Monocytes # (Auto) 1.45 K/uL (0.11-0.59) Eosinophils # (Auto) 0.16 K/uL (0-0.5) Basophils # (Auto) 0.04 K/uL (0-0.2) RDW Standard Deviation 53.7 fL (36.4-46.3) RDW Coefficient of Variation 15.1 % (11.5-14.5) Immature Granulocyte % (Auto) 0.3 % Immature Granulocyte # (Auto) 0.05 K/uL (0.00-0.02) Anion Gap 5.0 mmol/L (3-11) Est Creatinine Clear Calc Drug Dose 76.7 ml/min Estimated GFR () 109.7 Estimated GFR (Non- 94.7 BUN/Creatinine Ratio 20.0 (10-20) Calcium Level 9.4 mg/dl (8.5-10.1) Total Bilirubin 0.4 mg/dl (0.2-1) Aspartate Amino Transf (AST/SGOT) 11 U/L (15-37) Alanine Aminotransferase (ALT/SGPT) 18 U/L (12-78) Alkaline Phosphatase 83 U/L (45-117) Total Protein 6.2 gm/dl (6.4-8.2) Albumin 3.1 gm/dl (3.4-5.0) Globulin 3.1 gm/dl (2.5-4.0) Albumin/Globulin Ratio 1.0 (0.9-2) Lipase 65 U/L (73-393) Venous Blood pH 7.35 (7.36-7.41) Venous Blood Partial Pressure CO2 56 mmHg (38.0-50.0) Venous Blood Partial Pressure O2 34 mmHg Venous Blood HCO3 30 mmol/L Venous Blood Oxygen Saturation < 60.0 % Venous Blood Base Excess 3.5 mEq/L Urine Color YELLOW Urine Appearance CLEAR (CLEAR) Urine pH 6.0 (4.5-7.5) Urine Specific [place] 1.011 (1.000-1.030) Urine Protein NEG (NEG) Urine Glucose (UA) NEG (NEG) Urine Ketones NEG (NEG) Urine Occult Blood NEG (NEG) Urine Nitrite NEG (NEG) Urine Bilirubin NEG (NEG) Urine Urobilinogen NEG (NEG) Urine Leukocyte Esterase TRACE (NEG) Urine WBC (Auto) 1-5 /hpf (0-5) Urine RBC (Auto) 0-4 /hpf (0-4) Urine Hyaline Casts (Auto) 1-5 /lpf (0-5) Urine Epithelial Cells (Auto) >30 /lpf (0-5) Urine Bacteria (Auto) NEG (NEG) Laboratory results reviewed by me Medications Administered Medications (Trade) Dose Ordered Sig/Munir Route Start Time Stop Time Status Last Admin Dose Admin Sodium Chloride 1,000 ml @ 999 mls/hr Q1H1M STAT IV 12/06/16 17:25 12/06/16 18:25 DC 12/06/16 17:43 999 MLS/HR Ondansetron HCl (Zofran Inj) 4 mg NOW STAT IV 12/06/16 17:25 12/06/16 17:28 DC 12/06/16 17:43 4 MG Tramadol HCl (Ultram Tab) 50 mg Q4H PRN PO 12/06/16 17:30 12/06/16 21:03 DC 12/06/16 17:45 50 MG Ibuprofen (Advil Tab) 400 mg NOW STAT PO 12/06/16 17:25 12/06/16 17:28 DC 12/06/16 17:45 400 MG Acetaminophen (Tylenol Tab) 650 mg NOW STAT PO 12/06/16 17:25 12/06/16 17:28 DC 12/06/16 17:44 650 MG Ceftriaxone Sodium (Rocephin Inj) 1 gm NOW STAT IV 12/06/16 19:43 12/06/16 19:44 DC 12/06/16 19:55 1 GM ED Course 1716: The patient was evaluated in room C9. A complete history and physical exam was performed. 1844: I reevaluated the patient. She is feeling well and resting comfortably. 1939: I reevaluated the patient. She is looking and feeling well. 2014: I reevaluated the patient. She feels much better and is ready to go home. I discussed her results and discharge instructions and she verbalized complete understanding and agreement. Medical Decision The patient is a 61 year old white female with a past medical history of asthma , arthritis, fibromyalgia, CVA, who presents to the ED with a cc of worsening abdominal pain beginning 4 days ago. Triage Nursing notes reviewed. The patient's presentation and history were concerning for appendicitis, diverticulitis, PUD, biliary pathology, UTI, pancreatitis, obstruction, mesenteric ischemia, aortic pathology, infections, inflammatory bowel disease, renal colic, as well as others were entertained. I evaluated the patient. Patient unfortunately has been on methadone for some time for chronic pain. Patient states she has not had no prior history of substance abuse. The issue is that her primary care physician is retiring and no one else is willing to prescribe the medication thus she is trying to be weaned off this. Patient states she's had a recent bowel movement and although she had some mild nausea denied any chest pain or shortness of breath. Patient's lab work was fairly unremarkable. Patient's UA showed that she did have leuk esterase but with epithelial cells. Patient was given Motrin and Tylenol and states that her patient improved tremendously. We discussed that patients who are on medications for a long time sometimes requiring more of there current medication and do not work as well. Patient did have a mild white count of 16, 000 however the fact that the patient's pain completely improved, she's had regular bowel movements without blood and no vomiting without any fever I discussed that she would have strict return precautions. Patient was told that we will start antibiotics that she did have some suprapubic pain with positive leukocyte esterase but that if the culture was positive she would get a phone call to start taking the medication as this was likely a skin contaminant. Patient tolerated by mouth without any difficulty and ambulated as well without difficulty. Patient was given outpatient recommendations for possible detox as she wanted to get off the methadone. Patient was given strict follow-up, discharge, return precautions. Patient agreed with the plan of care and patient was discharged home. Medication Reconcilliation Current Medication List: was personally reviewed by me Blood Pressure Screening Patient's blood pressure: Elevated blood pressure Blood pressure disposition: Elevated BP felt to be situational Impression Primary Impression: Abdominal pain Additional Impressions: UTI (urinary tract infection) Nausea Scribe Attestation The scribe's documentation has been prepared under my direction and personally reviewed by me in its entirety. I confirm that the note above accurately reflects all work, treatment, procedures, and medical decision making performed by me. Departure Information Dispostion Home / Self-Care Prescriptions Tramadol (Ultram) 50 Mg Tab 25 MG PO Q8H Y for Pain, #15 TAB Prov: Willie Srivastava M.D. 12/06/16 Ondasetron Odt (ZOFRAN ODT) 4 Mg Tab 4 MG SL Q6H for Nausea, #6 TAB Prov: Willie Srivastava M.D. 12/06/16 Cephalexin Monohydrate (Keflex) 500 Mg Cap 500 MG PO BID for 7 Days, #14 CAP Prov: Willie Srivastava M.D. 12/06/16 Referrals Jesus Young Jr,D.O. (PCP) Patient Instructions Abdominal Pain, My [facility], UTI Additional Instructions Please return to the emergency department if you have worsening or recurrent symptoms not amenable to at-home treatment. Please call for a follow-up appointment with her primary care physician. Please take your medications as prescribed. If you have other concerns and/or complaints please feel free to also call your primary care physician's office or return the ED for further evaluation, management, and treatment. You may take Motrin 800 mg every 6 hours but no more than 3200 mg in a 24-hour period. Please take with food and do not take more than 2 consecutive days. He may take Tylenol 1000 mg every 6 hours but no more than 4000 mg in a 24-hour period. Please avoid taking additional medications if he did take tramadol. Please try and on its own as he had a fixed first before taking additional medications. Problem Qualifiers Primary Impression: Abdominal pain Abdominal location: lower abdomen, unspecified Qualified Codes: R10.30 - Lower abdominal pain, unspecified Additional Impressions: UTI (urinary tract infection) Urinary tract infection type: acute cystitis Hematuria presence: without hematuria Qualified Codes: N30.00 - Acute cystitis without hematuria
[2016-12-06] MEDS ORDERED: TRAMADOL HCL 50 MG TAB PO PRN (17:30)
[2016-12-06 17:58] LABS: BASO % 0.2 %; BASO ABS # 0.04 K/uL (0-0.2); COMPLETE YES; HEMATOCRIT 40.3 % (37-47); IG% 0.3 %; LYMPH % 18.2 %; LYMPH ABS # 3.01 K/uL (1.2-3.4); MEAN CELL VOLUME 96.6 fL (80-100); MEAN CORPUSCULAR HEMOGLOBIN 33.6 pg (25-34); MEAN CORPUSCULAR HGB CONC 34.7 g/dl (32-36); MEAN PLATELET VOLUME 10.2 fL (7.4-10.4); MONO % 8.8 %; NEUT % 71.5 %; PLATELET COUNT 429 K/uL (130-400); RED BLOOD COUNT 4.17 M/uL (4.2-5.4); WHITE BLOOD COUNT 16.55 K/uL (4.8-10.8)
[2016-12-06 18:15] LABS: CALCIUM 9.4 mg/dl (8.5-10.1); CREATININE 0.66 mg/dl (0.60-1.20); POTASSIUM 3.2 mmol/L (3.5-5.1)
[2016-12-06 19:17] LABS: VEN BLOOD GAS BASE EXCESS 3.5 mEq/L; VENOUS BLOOD GAS PCO2 56 mmHg (38.0-50.0); VENOUS BLOOD GAS PO2 34 mmHg
[2016-12-06 19:18] LABS: VEN BLD GAS O2 SATURATION < 60.0 %
[2016-12-06 19:39] LABS: MANUAL MICROSCOPIC REQUIRED? NO; REVIEW REQ? NO; URINE APPEARANCE CLEAR (CLEAR); URINE BILIRUBIN NEG (NEG); URINE COLOR YELLOW; URINE EPITHELIAL CELL AUTO >30 /lpf (0-5); URINE NITRITE NEG (NEG); URINE SPECIFIC GRAVITY 1.011 (1.000-1.030); UROBILINOGEN NEG (NEG); ZZUR CULT IF INDIC CLEAN CATCH NO
[2016-12-06] MEDS ORDERED: CEFTRIAXONE SOD INJ 1 GM ADDVIAL IV STA (19:43)
[2016-12-06] MEDS ORDERED: TRAM-10 PO (20:06)
[2016-12-06] MEDS ORDERED: ONDA4TAB10 SL (20:06)
[2016-12-06] MEDS ORDERED: CEPH500C PO (20:06)
[2016-12-06 20:31] VITALS: BP 151/89; PULSE 65; O2SAT 98
== END 2016-12-06 20:32 | disposition home or self-care (01) ==
LOC: C.EDB 15:11 → C.EDC 20:32
DX: R10.9 Unspecified abdominal pain (principal); N39.0 Urinary tract infection, site not specified; R11.0 Nausea; Z86.73 Personal history of transient ischemic attack (TIA), and cerebral infarction without residual deficits; Z98.890 Other specified postprocedural states; Z79.82 Long term (current) use of aspirin; Z79.899 Other long term (current) drug therapy; Z88.8 Allergy status to other drugs, medicaments and biological substances; Z80.9 Family history of malignant neoplasm, unspecified; Z83.3 Family history of diabetes mellitus; Z82.49 Family history of ischemic heart disease and other diseases of the circulatory system

== ENCOUNTER 2016-12-30 06:01 | Emergency (ER) | payer OTHER ==
[~2016-12-30] VITALS: Ht 167.6 cm; Wt 61.0 kg
[~2016-12-30 06:01] MED LIST changes: -ESTCR PV; +ONDA4TAB10 SL; +TRAM-10 PO
[2016-12-30 06:05] VITALS: TEMP 36.5; Ht 167.6 cm; Wt 61.0 kg
[2016-12-30] MEDS ORDERED: PREG1CAP70 PO (06:25)
[2016-12-30] MEDS ORDERED: TRAM-10 PO (06:25)
[2016-12-30] MEDS ORDERED: ONDA4TAB10 SL (06:25)
[2016-12-30] MEDS ORDERED: KETOROLAC TROMETHAMINE 30 MG/ML VIAL IV STA (06:35)
[2016-12-30] MEDS ORDERED: PROMETHAZINE HCL INJ 25 MG/ML 1 ML VIAL IV STA (06:35)
[2016-12-30] MEDS ORDERED: ACETAMINOPHEN 500 MG TAB PO STA (06:35)
[2016-12-30] MEDS ORDERED: PROMETHAZINE HCL INJ 12.5 MG in SODIUM CHLORIDE 0.9% 50ML 50 ML IV SCH (06:35)
[2016-12-30] MEDS ORDERED: SODIUM CHLORIDE 0.9% 1000ML 500 ML IV STA (06:35)
[2016-12-30] MEDS ORDERED: SODIUM CHLORIDE 0.9% 1000ML 1,000 ML IV STA (06:35)
[2016-12-30] MEDS ORDERED: LORAZEPAM 2 MG/ML 1 ML VIAL IV STA (06:35)
--- NOTE | 2016-12-30 06:38 | EMERGENCY ROOM VISIT NOTE ---
History Report prepared by Paul: Noreen Del Valle Under the Supervision of: Dr. Eren Teague M.D. First contact with patient: 06:32 Chief Complaint: ABDOMINAL PAIN Stated Complaint: ABD PAIN AND BACK PAIN Nursing Triage Summary: pt reports lower abdominal pain and back pain that started last week. Denies nausea and vomiting. Reports normal bowel movements. Pt reports falling last week and yesterday. Pt has ecchymosis to posterior left thigh. Pt reports taking home pain medication without any relief. History of Present Illness The patient is a 61 year old female who presents to the Emergency Room with complaints of constant abdominal pain starting last night. She rates the pain at a 10/10. The patient also reports having back pain. She states that her last bowel movement was today. The patient denies vomiting and states that she believes she has a fever. The patient reports that she is still on methadone for chronic pain but that she is trying to get off of the medication. The patient has a history of a splenectomy. Source of History: patient Onset: last night Position: abdomen Symptom Intensity: rated at a 10/10 Timing: constant Associated Symptoms: + back pain, No vomiting Review of Systems See HPI for pertinent positives & negatives. A total of 10 systems reviewed and were otherwise negative. Past Medical & Surgical Medical Problems: (1) Fibromyalgia (2) History of stroke (3) Migraines Surgical Problems: (1) History of splenectomy Family History Cancer Diabetes mellitus Heart disease Hypertension Lung disease Social History Smoking Status: Never Smoker Alcohol Use: none Drug Use: none Marital Status: Housing Status: lives with family Occupation Status: employed Current/Historical Medications Scheduled Alprazolam (Xanax), 3 TAB PO HS Aspirin (Aspirin Chewable), 81 MG PO HS Duloxetine HCl (Cymbalta), 1 CAP PO HS Duloxetine Hcl (Cymbalta), 60 MG PO HS Etodolac (Etodolac), 1 TAB PO QPM Fluticasone Prop/Salmeterol (Advair Diskus 500-50 Mcg/Dose), 2 PUFF INH HS Folic Acid (Folic Acid), 4 MG PO QPM Liothyronine Sodium (Liothyronine Sodium), 5 MCG PO BID Methadone Hcl (Dolophine), 15 MG PO DAILY Methotrexate (Methotrexate), 3 TAB PO WK Mirabegron (Myrbetriq Er), 25 MG PO DAILY Morphine Sulfate (Morphine Sulfate Ir), 1 TAB PO 5XD Omeprazole (Prilosec), 20 MG PO DAILY Oxymetazoline Hcl (Nasal [place]), 1 SPRY REY HS Pregabalin (Lyrica), 150 MG PO BID Trazodone Hcl (Desyrel), 200 MG PO HS Scheduled PRN Ipratropium-Albuterol (Combivent Respimat), 2 PUFFS INH Q4 PRN for SOB/Wheezing Ondasetron Odt (Zofran Odt), 4 MG SL Q6H PRN for Nausea or Vomiting Polyethylene Glycol 3350 (Miralax), 17 GM PO HS PRN for Constipation Prochlorperazine Maleate (Prochlorperazine Maleate), 1 DOSE PO BID PRN for WITH METHOTREXATE ON SUNDAYS Sumatriptan Succinate (Imitrex), 1 TAB PO DAILY PRN for Migraine Tramadol (Ultram), 25 MG PO Q8 PRN for Pain Allergies Coded Allergies: Ethanol (Verified Allergy, Unknown, skin irritation, 12/30/16) Fentanyl (Verified Allergy, Unknown, skin irritation, 12/30/16) Physical Exam Vital Signs Date Time Temp Pulse Resp B/P (MAP) Pulse Ox O2 Delivery O2 Flow Rate FiO2 12/30/16 11:58 57 18 128/80 95 Room Air 12/30/16 11:14 56 18 125/77 97 Room Air 12/30/16 08:53 65 14 133/86 98 Room Air 12/30/16 07:19 66 16 155/86 96 Room Air 12/30/16 06:05 36.5 84 18 159/90 98 Room Air Physical Exam GENERAL: Patient is in no mild distress secondary to pain. Patient pacing in room at times. HEENT: No acute trauma, normocephalic atraumatic, mucous membranes moist, no nasal congestion, no scleral icterus. NECK: No stridor, no adenopathy, no meningismus, trachea is midline. LUNGS: Clear to auscultation bilaterally, no wheeze, no rhonchi, breath sounds equal. HEART: Without murmurs gallops or rubs, regular rate and rhythm. ABDOMEN: Soft, moderate tenderness to lower pelvis and abdomen bilaterally, bowel sounds positive, no hernias, no peritonitis. EXTREMITIES: No cyanosis or edema, full range of motion of all the joints without pain or difficulty, no signs for acute trauma. NEUROLOGIC: Oriented x 3, no acute motor or sensory deficits, no focal weakness. SKIN: No rash, no jaundice, no diaphoresis. Medical Decision & Procedures ER Provider Diagnostic Interpretation: Radiology results as stated below per my review and radiologist interpretation: CT OF THE ABDOMEN AND PELVIS WITH CONTRAST CLINICAL HISTORY: Abdominal pain. Back pain. Recent fall. COMPARISON STUDY: CT of the abdomen and pelvis October 24, 2016. TECHNIQUE: Following IV administration of 93 mL of Optiray-320, axial images of the abdomen and pelvis were obtained from the lung bases to the proximal femurs. Images were reviewed in the axial, sagittal, and coronal planes. IV contrast was administered without complication. A dose lowering technique was utilized adhering to the principles of ALARA. Oral contrast was administered. CT DOSE: 269.98 mGy.cm FINDINGS: A few nodular opacities within the lower lungs are unchanged from earlier studies. These are likely benign given stability. Biliary ductal dilatation is unchanged since prior studies. The spleen, adrenal glands, right kidney and pancreas are unremarkable. There is a cyst within the lower pole of the left kidney. There is no evidence for a bowel obstruction. No pneumatosis, free air or portal venous gas is present. The appendix is slightly dilated, measuring 7 mm in caliber. However, the appendiceal tip is gas-filled. There is no evidence for acute appendicitis. No suspicious osseous lesions are present. There are postoperative findings within the spine. IMPRESSION: 1. No acute process within the abdomen or pelvis. No bowel obstruction. 2. Stable biliary ductal dilatation since prior exams. 3. Mildly dilated appendix. However, appendiceal tip is gas filled. No evidence for acute appendicitis. Electronically signed by: Eliu Cavazos M.D. 12/30/2016 11:41 AM Dictated Date/Time: 12/30/2016 11:28 AM Laboratory Results 12/30/16 06:50 Red Blood Count 3.54, Mean Corpuscular Volume 96.9, Mean Corpuscular Hemoglobin 31.6, Mean Corpuscular Hemoglobin Concent 32.7, Mean Platelet Volume 10.5, Neutrophils (%) (Auto) 46.4, Lymphocytes (%) (Auto) 38.9, Monocytes (%) (Auto) 9.0, Eosinophils (%) (Auto) 4.7, Basophils (%) (Auto) 0.6, Neutrophils # (Auto) 6.57, Lymphocytes # (Auto) 5.51, Monocytes # (Auto) 1.27, Eosinophils # (Auto) 0.66, Basophils # (Auto) 0.09 12/30/16 06:50 Test 12/30/16 06:15 12/30/16 06:50 Urine Color DK YELLOW Urine Appearance CLEAR (CLEAR) Urine pH 6.0 (4.5-7.5) Urine Specific [place] 1.025 (1.000-1.030) Urine Protein NEG (NEG) Urine Glucose (UA) NEG (NEG) Urine Ketones NEG (NEG) Urine Occult Blood NEG (NEG) Urine Nitrite NEG (NEG) Urine Bilirubin NEG (NEG) Urine Urobilinogen NEG (NEG) Urine Leukocyte Esterase NEG (NEG) White Blood Count 14.15 K/uL (4.8-10.8) Red Blood Count 3.54 M/uL (4.2-5.4) Hemoglobin 11.2 g/dL (12.0-16.0) Hematocrit 34.3 % (37-47) Mean Corpuscular Volume 96.9 fL (80-100) Mean Corpuscular Hemoglobin 31.6 pg (25-34) Mean Corpuscular Hemoglobin Concent 32.7 g/dl (32-36) Platelet Count 632 K/uL (130-400) Mean Platelet Volume 10.5 fL (7.4-10.4) Neutrophils (%) (Auto) 46.4 % Lymphocytes (%) (Auto) 38.9 % Monocytes (%) (Auto) 9.0 % Eosinophils (%) (Auto) 4.7 % Basophils (%) (Auto) 0.6 % Neutrophils # (Auto) 6.57 K/uL (1.4-6.5) Lymphocytes # (Auto) 5.51 K/uL (1.2-3.4) Monocytes # (Auto) 1.27 K/uL (0.11-0.59) Eosinophils # (Auto) 0.66 K/uL (0-0.5) Basophils # (Auto) 0.09 K/uL (0-0.2) RDW Standard Deviation 56.1 fL (36.4-46.3) RDW Coefficient of Variation 15.7 % (11.5-14.5) Immature Granulocyte % (Auto) 0.4 % Immature Granulocyte # (Auto) 0.05 K/uL (0.00-0.02) Target Cells 1+ [place] Bodies 1+ Acanthocytes 1+ Prothrombin Time 9.8 SECONDS (9.0-12.0) Prothromb Time International Ratio 0.9 (0.9-1.1) Activated Partial Thromboplast Time 24.9 SECONDS (21.0-31.0) Partial Thromboplastin Ratio 1.0 Anion Gap 4.0 mmol/L (3-11) Est Creatinine Clear Calc Drug Dose 94.1 ml/min Estimated GFR () 114.5 Estimated GFR (Non- 98.8 BUN/Creatinine Ratio 23.6 (10-20) Lactic Acid Level 0.8 mmol/L (0.4-2.0) Calcium Level 9.1 mg/dl (8.5-10.1) Total Bilirubin 0.3 mg/dl (0.2-1) Aspartate Amino Transf (AST/SGOT) 21 U/L (15-37) Alanine Aminotransferase (ALT/SGPT) 34 U/L (12-78) Alkaline Phosphatase 92 U/L (45-117) Troponin I < 0.015 ng/ml (0-0.045) Total Protein 5.7 gm/dl (6.4-8.2) Albumin 2.6 gm/dl (3.4-5.0) Globulin 3.1 gm/dl (2.5-4.0) Albumin/Globulin Ratio 0.8 (0.9-2) Lipase 119 U/L (73-393) Laboratory results reviewed by me. Medications Administered Medications (Trade) Dose Ordered Sig/Munir Route Start Time Stop Time Status Last Admin Dose Admin Sodium Chloride 500 ml @ 999 mls/hr Q31M STAT IV 12/30/16 06:35 12/30/16 07:05 DC 12/30/16 07:00 999 MLS/HR Sodium Chloride 1,000 ml @ 200 mls/hr Q5H STAT IV 12/30/16 06:35 12/30/16 11:34 DC 12/30/16 07:01 200 MLS/HR Ketorolac Tromethamine (Toradol Inj) 30 mg NOW STAT IV 12/30/16 06:35 12/30/16 06:37 DC 12/30/16 07:00 30 MG Acetaminophen (Tylenol Tab) 1,000 mg NOW STAT PO 12/30/16 06:35 12/30/16 06:37 DC 12/30/16 07:01 1,000 MG Lorazepam (Ativan Inj) 0.5 mg NOW STAT IV 12/30/16 06:35 12/30/16 06:37 DC 12/30/16 07:00 0.5 MG Promethazine HCl 12.5 mg/Sodium Chloride 50.5 ml @ 202 mls/hr TODAY@0635 IV 12/30/16 06:35 12/30/16 09:00 DC 12/30/16 07:17 202 MLS/HR ECG Indication: abdominal pain Rate (beats per minute): 63 Rhythm: normal sinus Findings: no acute ischemic change, no ectopy ED Course 0630: The patient was evaluated in room B10. A complete history and physical exam was performed. 0635: Ordered Promethazine HCl 12.5 mg/Sodium Chloride 50.5 ml @ 202 mls/hr IV, Lorazepam 0.5 mg IV, Tylenol Tab 1,000 mg PO, Toradol Inj 30 mg IV, Sodium Chloride 1,000 ml @ 200 mls/hr IV, Promethazine HCl 12.5 mg IV, Sodium Chloride 500 ml @ 999 mls/hr IV. 0936: The patient reports feeling better. 1155: Reevaluated the patient. Discussed results and discharge instructions: She verbalized understanding and agreement. The patient is ready for discharge. Medical Decision The patient is a 61 year old female who presents to the ED with complaints of abdominal pain. Differential diagnoses considered include narcotic dependence, constipation, bowel obstruction, UTI, bowel perforation, bowel ischemia, diverticulitis, and hernia . There is a moderate leukocytosis at 14,000, this could be consistent with infection or pain. No concerning anemia. Platelet count actually slightly high. No significant electrolyte abnormality, kidney failure or hepatitis. There is no pancreatitis. Lactic acid level is not elevated making bowel ischemia less likely. EKG shows a normal sinus rhythm, no acute ischemia. Abdominal and pelvis CT does not show bowel obstruction, no evidence for diverticulitis. No evidence for pancreatitis or for appendicitis. The patient received IV saline, IV Toradol, oral Tylenol, IV Ativan and IV Phenergan. She is improved. The patient has chronic abdominal pain and is weaning off of her methadone. I think she may have had a flare of acute on chronic pain this morning. As she is feeling better, she is being discharged. She can talk with her doctors about her methadone weaning. She can return to this ER for fever, vomiting or worsening symptoms. Medication Reconcilliation Current Medication List: was personally reviewed by me Blood Pressure Screening Patient's blood pressure: Elevated blood pressure Blood pressure disposition: Elevated BP felt to be situational Impression Primary Impression: Lower abdominal pain Scribe Attestation The scribe's documentation has been prepared under my direction and personally reviewed by me in its entirety. I confirm that the note above accurately reflects all work, treatment, procedures, and medical decision making performed by me. Departure Information Dispostion Home / Self-Care Referrals Jesus Young Jr,D.O. (PCP) Forms HOME CARE DOCUMENTATION FORM, IMPORTANT VISIT INFORMATION Patient Instructions My [facility] Additional Instructions follow with your doctor this week call for an appt return for worsening symptoms imaging of the abdomen today was ok
[2016-12-30 06:58] LABS: URINE APPEARANCE CLEAR (CLEAR); URINE BILIRUBIN NEG (NEG); URINE COLOR DK YELLOW; URINE NITRITE NEG (NEG); URINE SPECIFIC GRAVITY 1.025 (1.000-1.030); UROBILINOGEN NEG (NEG); ZZUR CULT IF INDIC CLEAN CATCH NO
[2016-12-30 07:01] LABS: MANUAL MICROSCOPIC REQUIRED? NO; REVIEW REQ? NO
[2016-12-30 07:11] LABS: HEMATOCRIT 34.3 % (37-47); MEAN CELL VOLUME 96.9 fL (80-100); MEAN CORPUSCULAR HEMOGLOBIN 31.6 pg (25-34); MEAN CORPUSCULAR HGB CONC 32.7 g/dl (32-36); MEAN PLATELET VOLUME 10.5 fL (7.4-10.4); PLATELET COUNT 632 K/uL (130-400); RED BLOOD COUNT 3.54 M/uL (4.2-5.4); WHITE BLOOD COUNT 14.15 K/uL (4.8-10.8)
[2016-12-30 07:25] LABS: INR 0.9 (0.9-1.1); PROTHROMBIN TIME (PATIENT) 9.8 SECONDS (9.0-12.0)
[2016-12-30 07:27] LABS: ALT/SGPT 34 U/L (12-78); BLOOD UREA NITROGEN 14 mg/dl (7-18); BUN/CREATININE RATIO 23.6 (10-20); CALCIUM 9.1 mg/dl (8.5-10.1); CARBON DIOXIDE 33 mmol/L (21-32); CHLORIDE 106 mmol/L (98-107); CREATININE 0.58 mg/dl (0.60-1.20); GLUCOSE 115 mg/dl (70-99); POTASSIUM 3.5 mmol/L (3.5-5.1); SODIUM 143 mmol/L (136-145)
[2016-12-30 07:32] LABS: ALB/GLOB RATIO 0.8 (0.9-2); ALKALINE PHOSPHATASE 92 U/L (45-117); AST/SGOT 21 U/L (15-37)
[2016-12-30] MEDS ORDERED: OPTIRAY 320 IV PRN (07:45)
[2016-12-30 08:11] LABS: ACANTHOCYTES 1+; BASO % 0.6 %; BASO ABS # 0.09 K/uL (0-0.2); COMPLETE YES; EOS % 4.7 %; HOWELL-JOLLY BODIES 1+; IG% 0.4 %; LYMPH % 38.9 %; LYMPH ABS # 5.51 K/uL (1.2-3.4); NEUT % 46.4 %; TARGET CELLS 1+
--- NOTE | 2016-12-30 11:43 | DIAGNOSTIC IMAGING REPORT ---
CT OF THE ABDOMEN AND PELVIS WITH CONTRAST CLINICAL HISTORY: Abdominal pain. Back pain. Recent fall. COMPARISON STUDY: CT of the abdomen and pelvis October 24, 2016. TECHNIQUE: Following IV administration of 93 mL of Optiray-320, axial images of the abdomen and pelvis were obtained from the lung bases to the proximal femurs. Images were reviewed in the axial, sagittal, and coronal planes. IV contrast was administered without complication. A dose lowering technique was utilized adhering to the principles of ALARA. Oral contrast was administered. CT DOSE: 269.98 mGy.cm FINDINGS: A few nodular opacities within the lower lungs are unchanged from earlier studies. These are likely benign given stability. Biliary ductal dilatation is unchanged since prior studies. The spleen, adrenal glands, right kidney and pancreas are unremarkable. There is a cyst within the lower pole of the left kidney. There is no evidence for a bowel obstruction. No pneumatosis, free air or portal venous gas is present. The appendix is slightly dilated, measuring 7 mm in caliber. However, the appendiceal tip is gas-filled. There is no evidence for acute appendicitis. No suspicious osseous lesions are present. There are postoperative findings within the spine. IMPRESSION: 1. No acute process within the abdomen or pelvis. No bowel obstruction. 2. Stable biliary ductal dilatation since prior exams. 3. Mildly dilated appendix. However, appendiceal tip is gas filled. No evidence for acute appendicitis. Electronically signed by: Eliu Cavazos M.D. 12/30/2016 11:41 AM Dictated Date/Time: 12/30/2016 11:28 AM
[2016-12-30 11:58] VITALS: BP 128/80; PULSE 57; O2SAT 95
== END 2016-12-30 12:20 | disposition home or self-care (01) ==
LOC: C.EDB 06:02
DX: R10.30 Lower abdominal pain, unspecified (principal); M79.7 Fibromyalgia; Z86.73 Personal history of transient ischemic attack (TIA), and cerebral infarction without residual deficits; G43.909 Migraine, unspecified, not intractable, without status migrainosus; Z80.9 Family history of malignant neoplasm, unspecified; Z83.3 Family history of diabetes mellitus; Z82.49 Family history of ischemic heart disease and other diseases of the circulatory system; Z83.6 Family history of other diseases of the respiratory system; Z79.82 Long term (current) use of aspirin; Z79.899 Other long term (current) drug therapy

== ENCOUNTER 2020-06-10 12:36 | Observation (INO) ==
[2020-06-10] MEDS ORDERED: SODIUM CHLORIDE 0.9% 1000ML 1,000 ML IV SCH (13:15)
--- NOTE | 2020-06-10 13:20 | Emergency Department Note ---
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 Scrn (Neg) MDMA (Ecstasy) Screen (Neg) U Benzodiazepines Scrn (Neg) Ur Cocaine Metabolite (Neg) U Marijuana (THC) Screen (Neg) Ethyl Alcohol mg/dL (0-3) mg/dl COVID-19 Eval Order SARS-CoV-2, RNA, NAAT (NEGATIVE) 06/10/20 Range/Units 16:02 WBC (4.8-10.8) K/uL RBC (4.2-5.4) M/uL Hgb (12.0-16.0) g/dL Hct (37-47) % MCV (80-100) fL MCH (25-34) pg MCHC (32-36) g/dL RDW Std Deviation (36.4-46.3) fL RDW Coeff of [place] (11.5-14.5) % Plt Count (130-400) K/uL MPV (7.4-10.4) fL Immature Gran % (Auto) % Neut % (Auto) % Lymph % (Auto) % Tate % (Auto) % Eos % (Auto) % Baso % (Auto) % Neut # (Auto) (1.4-6.5) K/uL Lymph # (Auto) (1.2-3.4) K/uL Tate # (Auto) (0.11-0.59) K/uL Eos # (Auto) (0-0.5) K/uL Baso # (Auto) (0-0.2) K/uL Immature Gran # (Auto) (0.00-0.02) K/uL Absolute Nucleated RBC (0-0) K/uL Nucleated RBC % (auto) % ESR (0-21) mm/hr VBG pH 7.21 L (7.36-7.41) VBG pCO2 57 H (38-50) mmHg VBG pO2 40 mmHg VBG HCO3 23 mmol/L VBG O2 Saturation 65.0 % VBG Base Excess -5.4 mEq/L Barometric Pressure 724.9 mm/Hg Sodium (136-145) mmol/L Potassium (3.5-5.1) mmol/L Chloride (98-107) mmol/L Carbon Dioxide (21-32) mmol/L Anion Gap (3-11) BUN (7-18) mg/dl Creatinine (0.6-1.2) mg/dl Est Cr Clr Drug Dosing ml/min Est GFR ( Amer) Est GFR (Non-Af Amer) BUN/Creatinine Ratio (10-20) Glucose (70-99) mg/dl Lactate (0.4-2.0) mmol/L Calcium (8.5-10.1) mg/dl Magnesium (1.8-2.4) mg/dl Total Bilirubin (0.2-1) mg/dl AST (15-37) U/L ALT (12-78) U/L Alkaline Phosphatase (45-117) U/L Ammonia (11-32) umol/L Troponin I (0-0.045) ng/ml C-Reactive Protein (0-0.29) mg/dl Total Protein (6.4-8.2) gm/dl Albumin (3.4-5.0) gm/dl Globulin (2.5-4.0) gm/dl Albumin/Globulin Ratio (0.9-2) Procalcitonin (0-0.5) ng/ml TSH (0.300-4.500) uIu/ml Free T4 (0.8-1.6) ng/dl Free T3 (2.3-4.2) pg/ml Random Cortisol mcg/dl Urine Color Urine Appearance (Clear) Urine pH (4.5-7.5) Ur Specific [place] (1.000-1.030) Urine Protein (Negative) Urine Glucose (UA) (Negative) Urine Ketones (Negative) Urine Blood (Negative) Urine Nitrite (Negative) Urine Bilirubin (Negative) Urine Urobilinogen (Negative) Ur Leukocyte Esterase (Negative) Urine Opiates Screen (Neg) Ur Methadone, Qual (Neg) Urine Barbiturates (Neg) Ur Phencyclidine (PCP) (Neg) U Amphetamin/Meth Scrn (Neg) MDMA (Ecstasy) Screen (Neg) U Benzodiazepines Scrn (Neg) Ur Cocaine Metabolite (Neg) U Marijuana (THC) Screen (Neg) Ethyl Alcohol mg/dL (0-3) mg/dl COVID-19 Eval Order SARS-CoV-2, RNA, NAAT (NEGATIVE) Administered Medications Discontinued Medications Dexamethasone (Dexamethasone Sod Inj 4 Mg/Ml Vial) Confirm Administered Dose 4 mg .ROUTE .STAlterGeo-MED ONE Stop: 06/10/20 16:55 Last Admin: 06/10/20 16:56 Dose: 4 mg Documented by: [id number] Sodium Chloride (Nss 1000ml) 1,000 mls @ 999 mls/hr IV .Q1H1M DHARMESH Stop: 06/10/20 14:15 Last Infusion: 06/10/20 14:37 Dose: 0 mls/hr Documented by: [id number] Admin: 06/10/20 13:36 Dose: 999 mls/hr Documented by: [id number] Sodium Chloride (Nss 1000ml) 500 mls @ 999 mls/hr IV .Q31M ONE Stop: 06/10/20 14:37 Last Infusion: 06/10/20 18:04 Dose: 0 mls/hr Documented by: [id number] Admin: 06/10/20 14:37 Dose: 999 mls/hr Documented by: [id number] Cefepime HCl (Maxipime) 2,000 mg in 20 mls @ 5 mls/min IV NOW STA; Protocol Stop: 06/10/20 14:49 Last Admin: 06/10/20 15:07 Dose: 5 mls/min Documented by: [id number] Lactated Ringer's (Lr) 1,000 mls @ 999 mls/hr IV .Q1H1M STA Stop: 06/10/20 15:46 Last Infusion: 06/10/20 16:28 Dose: 0 mls/hr Documented by: [id number] Admin: 06/10/20 15:07 Dose: 999 mls/hr Documented by: [id number] Lactated Ringer's (Lr) 500 mls @ 999 mls/hr IV .Q31M ONE Stop: 06/10/20 16:21 Last Infusion: 06/10/20 16:29 Dose: 0 mls/hr Documented by: [id number] Admin: 06/10/20 15:57 Dose: 999 mls/hr Documented by: [id number] Dexamethasone Sodium Phosphate (4 mg/ Syringe) 1 mls @ 1 mls/min IV ONE ONE Stop: 06/10/20 17:31 Last Admin: 06/10/20 18:02 Dose: Not Given Documented by: [id number] Lactated Ringer's (Lr) 1,000 mls @ 125 mls/hr IV .Q8H DHARMESH Stop: 07/10/20 17:59 Last Infusion: 06/10/20 19:09 Dose: 0 mls/hr Documented by: [id number] Admin: 06/10/20 18:24 Dose: 125 mls/hr Documented by: [id number] Lactated Ringer's (Lr) 500 mls @ 999 mls/hr IV .Q31M ONE Stop: 06/10/20 18:10 Last Infusion: 06/10/20 18:11 Dose: 0 mls/hr Documented by: [id number] Admin: 06/10/20 17:40 Dose: 999 mls/hr Documented by: [id number] Norepinephrine Bitartrate (Norepinephrine/D5w 8 Mg/508 Ml) Confirm Administered Dose 8 mg IV .STK-MED ONE Stop: 06/10/20 16:51 Last Admin: 06/10/20 18:00 Dose: Not Given Documented by: [id number] Imaging Data Radiologist's Impression: XR chest 1V portable CLINICAL HISTORY: weakness COMPARISON STUDY: 10/24/2016 FINDINGS: There are postsurgical changes of midline sternotomy. The heart is normal in size. There is no failure. There is no focal pulmonary consolidation. There are no pleural effusions.[There is borderline elevation right hemidiaphragm. IMPRESSION: No active disease in the chest. CT head/brain wo con CLINICAL HISTORY: confusion COMPARISON STUDY: 10/22/2014, MRI the brain dated 12/22/2017 TECHNIQUE: Axial CT of the brain is performed from the vertex to the skull base. IV contrast was not administered for this examination. A dose lowering technique was utilized adhering to the principles of ALARA. CT DOSE: 614.27 mGy.cm FINDINGS: No intra or extra-axial mass lesions are visualized. There is no CT evidence of acute cortical infarction. There is no evidence of midline shift. There is no acute hemorrhage. No calvarial fractures are visualized. There are old cortical infarcts involving the right frontal lobe and right parietal lobe. There is no evidence of pathologic ventricular dilatation. There is a joint cisterna magna. There is no evidence of acute sinusitis IMPRESSION: 1. Old right MCA distribution infarcts 2. No acute intracranial findings Discharge Plan Visit Data Chief Complaint: Dizziness Stated Complaint: THINKS SHE HAD A STROKE,VERY SHAKY ED Provider: Eren Teague Discharge Problem: Hypotension, Dizziness, Acute confusion, Acute dehydration Patient Disposition: Admitted As Inpatient Condition: Fair Discharge Instructions Interventions: ED Discharge Assessment Last Done: 06/10/20 17:16 Discharge Problem: Hypotension Qualifiers: Hypotension type: unspecified hypotension type Qualified Code(s): I95.9 - Hypotension, unspecified
[2020-06-10 13:24] LABS: Basophils # (auto) 0.05 K/uL (0-0.2); Basophils % (auto) 0.6 %; Eosinophils # (auto) 0.25 K/uL (0-0.5); Hematocrit (blood only) 37.8 % (37-47); Immature Granulocytes # (auto) 0.01 K/uL (0.00-0.02); Immature Granulocytes % (auto) 0.1 %; Lymphocytes # (auto) 3.37 K/uL (1.2-3.4); Lymphocytes % (auto) 40.7 %; Mean Corpuscular Hemoglobin 33.3 pg (25-34); Mean Corpuscular Hgb Conc 34.4 g/dL (32-36); Mean Corpuscular Volume 96.9 fL (80-100); Mean Platelet Volume 10.3 fL (7.4-10.4); Monocytes # (auto) 0.55 K/uL (0.11-0.59); Monocytes % (auto) 6.6 %; Neutrophils # (auto) 4.05 K/uL (1.4-6.5); Nucleated RBC # (auto) 0.03 K/uL (0-0); Nucleated RBC % (auto) 0.3 %; Platelet Count 391 K/uL (130-400); RDW Coefficient of Variation 15.4 % (11.5-14.5); RDW Standard Deviation 53.1 fL (36.4-46.3); White Blood Count 8.28 K/uL (4.8-10.8)
--- NOTE | 2020-06-10 13:38 | XRay Report ---
XR chest 1V portable CLINICAL HISTORY: weakness COMPARISON STUDY: 10/24/2016 FINDINGS: There are postsurgical changes of midline sternotomy. The heart is normal in size. There is no failure. There is no focal pulmonary consolidation. There are no pleural effusions.[There is bord penny elevation right hemidiaphragm. IMPRESSION: No active disease in the chest. ACT 112: Negative or not required by law. Electronically signed by: Steven Wilburn M.D. 06/10/2020 1:36 PM
[2020-06-10 13:40] LABS: Albumin Level 4.1 gm/dl (3.4-5.0); BUN Creatinine Ratio 16.6 (10-20); Calcium 9.1 mg/dl (8.5-10.1); Creatinine Clr Calc Pharmacy 42.8 ml/min; Est GFR (African American) 48.1; Est GFR (Non-African American) 41.5; Potassium 3.8 mmol/L (3.5-5.1)
[2020-06-10 13:50] LABS: Albumin Globulin Ratio 1.2 (0.9-2); Bilirubin,Total 0.4 mg/dl (0.2-1); Globulin 3.4 gm/dl (2.5-4.0); Thyroid Stimulating Hormone 0.602 uIu/ml (0.300-4.500); Total Protein 7.5 gm/dl (6.4-8.2)
--- NOTE | 2020-06-10 13:51 | CT Scan Report ---
CT head/brain wo con CLINICAL HISTORY: confusion COMPARISON STUDY: 10/22/2014, MRI the brain dated 12/22/2017 TECHNIQUE: Axial CT of the brain is performed from the vertex to the skull base. IV contrast was not administered for this examination. A dose lowering technique was utilized adhering to the principles of ALARA. CT DOSE: 614.27 mGy.cm FINDINGS: No intra or extra-axial mass lesions are visualized. There is no CT evidence of acute cortical infarc tion. There is no evidence of midline shift. There is no acute hemorrhage. No calvarial fractures ar e visualized. There are old cortical infarcts involving the right frontal lobe and right parietal lobe. There is no evidence of pathologic ventricular dilatation. There is a joint cisterna magna. There is no evidence of acute sinusitis IMPRESSION: 1. Old right MCA distribution infarcts 2. No acute intracranial findings ACT 112: Negative or not required by law. Electronically signed by: Steven Wilburn M.D. 06/10/2020 1:50 PM
[2020-06-10] MEDS ORDERED: SODIUM CHLORIDE 0.9% 1000ML 500 ML IV ONE (14:07)
[2020-06-10] MEDS ORDERED: CEFEPIME 2,000 MG/20 ML VIAL IV STA (14:46)
[2020-06-10] MEDS ORDERED: LACTATED RINGER'S 1,000 ML IV STA (14:46)
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
[2020-06-10] MEDS ORDERED: LACTATED RINGER'S 500 ML IV ONE ×2 (15:51→17:40)
[2020-06-10 16:48] LABS: Base Excess VBG -5.4 mEq/L; pH VBG 7.21 (7.36-7.41)
[2020-06-10] MEDS ORDERED: DEXAMETHASONE SOD INJ 10 MG/ML VIAL IV ONE (16:50)
[2020-06-10] MEDS ORDERED: NOREPINEPHRINE/D5W 8 MG/508 ML IV ONE (16:50)
[2020-06-10 16:52] LABS: Cortisol Random 2.6 mcg/dl; T3 Free 2.81 pg/ml (2.3-4.2)
[2020-06-10] MEDS ORDERED: DEXAMETHASONE SOD INJ 4 MG/ML VIAL ONE (16:54)
--- NOTE | 2020-06-10 16:55 | Electrocardiogram Report ---
Test Reason : Blood Pressure : / mmHG Vent. Rate : 063 BPM Atrial Rate : 063 BPM P-R Int : 158 ms QRS Dur : 092 ms QT Int : 414 ms P-R-T Axes : 049 032 050 degrees QTc Int : 423 ms Normal sinus rhythm Normal ECG When compared with ECG of 30-DEC-2016 06:41, No significant change was found Confirmed by Sandip Pollock ([id number]) on 06/10/2020 4:54:46 PM Referred By: REFERRED SELF Confirmed By:Fito Pollock
[2020-06-10 17:06] LABS: Appearance Urine Clear (Clear); Bilirubin Urine Negative (Negative); Blood Urine Negative (Negative); Color Urine Yellow; Glucose Urine UA Negative (Negative); Ketones Urine Negative (Negative); Leukocyte Esterase Urine Negative (Negative); Nitrite Urine Negative (Negative); Protein Urine Negative (Negative); Specific Gravity Urine 1.014 (1.000-1.030); Urobilinogen Urine Negative (Negative)
[2020-06-10 17:10] LABS: BUN Creatinine Ratio 20.3 (10-20); Calcium 7.5 mg/dl (8.5-10.1); Creatinine Clr Calc Pharmacy 56.7 ml/min; Est GFR (African American) 67.7; Est GFR (Non-African American) 58.4; Potassium 3.9 mmol/L (3.5-5.1); T4 Free Thyroxine 1.01 ng/dl (0.8-1.6)
[2020-06-10] MEDS ORDERED: ONDANSETRON INJ 2 MG/ML 2 ML VIAL IV PRN (17:20)
[2020-06-10] MEDS ORDERED: POLYETHYLENE (MIRALAX) 17 GM PACK PO PRN (17:20)
[2020-06-10] MEDS ORDERED: ACETAMINOPHEN 325 MG TAB PO PRN (17:20)
[2020-06-10] MEDS ORDERED: IPRATROPIUM BROMIDE/ALBUTEROL respimat INH INH PRN (17:20)
[2020-06-10] MEDS ORDERED: ALPRAZolam 0.5 MG TABLET PO PRN (17:20)
[2020-06-10] MEDS ORDERED: dexAMETHasone 4 MG in SYRINGE 0 ML IV ONE (17:30)
[2020-06-10] MEDS ORDERED: Ipratropium HFA Inhaler (Combivent Respimat P&T Subs) INH PRN (17:37)
[2020-06-10] MEDS ORDERED: Albuterol HFA 8 GM Inhaler (Combivent Respimat P&T Subs) INH PRN (17:37)
[2020-06-10 17:47] LABS: Amphetamines+Metham, Urine Neg (Neg); Barbiturates, Urine Neg (Neg); Benzodiazepine, Urine Neg (Neg); Cocaine, Urine Neg (Neg); MDMA (Ecstacy), Urine Pos (Neg); Methadone, Urine Neg (Neg); Opiate, Urine Pos (Neg); Phencyclidine, Urine Neg (Neg)
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
[2020-06-10] MEDS ORDERED: LACTATED RINGER'S 1,000 ML IV SCH (18:00)
[2020-06-10 18:23] LABS: Albumin Level 2.8 gm/dl (3.4-5.0); C Reactive Protein 0.98 mg/dl (0-0.29)
[2020-06-10] MEDS ORDERED: PNEUMOCOCCAL ADMINISTRATION CHARGE ONE (19:05)
[2020-06-10] MEDS ORDERED: INFLUENZA ADMINISTRATION CHARGE ONE (19:05)
[2020-06-10] MEDS: HEPARIN SOD 5,000 UNIT/0.5 ML VIAL SQ SCH (20:06)
[2020-06-10] MEDS: FOLIC ACID 1 MG TAB PO SCH (20:06)
[2020-06-10] MEDS: DULoxetine HCL 60 MG CAP PO SCH (20:07)
[2020-06-10] MEDS: DULoxetine HCL 30 MG CAP PO SCH (20:07)
[2020-06-10] MEDS: LIOTHYRONINE SODIUM 5 MCG TAB PO SCH (20:07)
[2020-06-10] MEDS ORDERED: PNEUMOCOCCAL POLYSACCHARIDES 25 MCG/0.5 ML VIAL/SYR IM ONE (21:00)
[2020-06-10] MEDS ORDERED: cefTRIAXone SODIUM 1,000 MG in DEXTROSE 5% 50 ML IV SCH (21:00)
[2020-06-10] MEDS ORDERED: INFLUENZA VACCINE HIGH DOSE 65+ 0.7 ML SYR IM ONE (21:00)
[2020-06-11 05:07] LABS: Hematocrit (blood only) 31.9 % (37-47); Hemoglobin 10.9 g/dL (12.0-16.0); Mean Corpuscular Hemoglobin 33.1 pg (25-34); Mean Corpuscular Hgb Conc 34.2 g/dL (32-36); Platelet Count 344 K/uL (130-400); RDW Coefficient of Variation 15.4 % (11.5-14.5); RDW Standard Deviation 53.7 fL (36.4-46.3); Red Blood Count 3.29 M/uL (4.2-5.4); White Blood Count 5.73 K/uL (4.8-10.8)
[2020-06-11 05:24] LABS: BUN Creatinine Ratio 20.7 (10-20); Calcium 7.9 mg/dl (8.5-10.1); Creatinine Clr Calc Pharmacy 70.7 ml/min; Est GFR (African American) 88.3; Est GFR (Non-African American) 76.2; Magnesium 1.9 mg/dl (1.8-2.4); Phosphorus 2.6 mg/dl (2.5-4.9)
--- NOTE | 2020-06-11 07:40 | CT Scan Report ---
CT SCAN OF THE ABDOMEN AND PELVIS WITHOUT IV CONTRAST CLINICAL HISTORY: Generalized abdominal pain. Sepsis. COMPARISON STUDY: Abdominal CT dated 12/30/2016. TECHNIQUE: CT scan of the abdomen and pelvis is performed from the lung bases to the proximal femora. Images are reviewed in the axial, sagittal, and coronal planes. IV contrast was not administered for this examination. Note that the examination is suboptimal without IV contrast Oral contrast was util ized. A dose lowering technique was utilized adhering to the principles of ALARA. CT DOSE: 578.31 mGy.cm FINDINGS: Lung bases: The heart is normal in size and without pericardial effusion. The lung bases are clear no ting bibasilar atelectasis. There is a small hiatal hernia. Liver: The unenhanced liver is normal in size, contour, and attenuation. There is mild central intrah epatic biliary ductal dilatation which is similar to previous. Gallbladder: The gallbladder is distended but otherwise normal in appearance. Spleen: A normal spleen is not identified. Pancreas: The unenhanced pancreas is moderately atrophic and grossly unremarkable. Adrenal glands: Unremarkable. Kidneys: The unenhanced kidneys demonstrate mild cortical atrophy and are without hydronephrosis. The re are no renal calculi identified. There is no evidence of contour deforming renal mass lesion. Abdominal vasculature: The abdominal aorta is normal in course and caliber noting mild to moderate at herosclerotic calcification. Bowel: A rectal temperature probe is in place. There is no bowel obstruction. Enteric contrast reache s the right colon. There are scattered colonic diverticula without CT evidence of acute diverticuliti s. The appendix is well-visualized and normal. Peritoneum: There is no intraperitoneal free air or abdominal ascites. Lymphadenopathy: None. Pelvic viscera: The bladder is decompressed around a Holder catheter and cannot be assessed. The uteru s and adnexa are normal as visualized. Skeletal structures: The skeletal structures are osteopenic. There is moderate to advanced sacral spo ndylosis with postlaminectomy change. A grade 1 anterolisthesis is noted at L3-L4. No lytic or blasti c lesions are seen. IMPRESSION: 1. There are no acute infectious or inflammatory findings in the abdomen or pelvis. 2. The gallbladder is distended but otherwise normal as visualized. If there is clinical concern for gallbladder pathology a right upper quadrant ultrasound should be considered. 3. The spleen is not identified and presumed surgically absent. 4. Additional findings as above. ACT 112: Negative or not required by law. Electronically signed by: Eren Gibson M.D. 06/11/2020 7:39 AM
[2020-06-11] MEDS: PANTOprazole 40 MG TAB PO SCH (08:20)
[2020-06-11] MEDS: CLOPIDOGREL BISULFATE 75 MG TAB PO SCH (08:20)
[2020-06-11] MEDS: LIOTHYRONINE SODIUM 5 MCG TAB PO SCH ×2 (08:20→20:18)
[2020-06-11] MEDS: ASPIRIN 81 MG ECTAB PO SCH (08:20)
[2020-06-11] MEDS: HEPARIN SOD 5,000 UNIT/0.5 ML VIAL SQ SCH ×2 (08:21→20:20)
[2020-06-11] MEDS ORDERED: ACETAMINOPHEN 325 MG TAB PO STA (08:59)
[2020-06-11] MEDS ORDERED: IBUPROFEN 200 MG TAB PO STA (08:59)
--- NOTE | 2020-06-11 09:15 | Critical Care Progress Note ---
Date of Service June 11, 2020 Assessment & Plan (1) Altered mental status: Reason Critically Ill: Patient presenting with significant hypotension while in the ED even after 3L fluid bolus administration, concerning for urosepsis based on patients history. NEURO: CAM ICU: Negative -Patient sleepy though arousable and answers questions appropriately a majority of time on admission, much more awake and appropriate this AM. -Head CT in ED negative for acute process -On multiple sedating medications including Xanax, Morphine, Lyrica, Trazodone, Marijuana, Cymbalta, most of which she takes at night (AM morphine) -Feel that patient's sedation is secondary to polypharmacy. -Would continue to hold patient's Xanax and possibly decrease her morphine intake (takes 30mg qAM) to improve over all sedation and mentation. -UDS +opiates, +marijuana, +MDMA (likely false positive/cross-reaction) -History of CVA without deficits -Continue home ASA, Clopidogrel CARDIAC: -Patient with pressures as low as 74/41 in the ED -Received 3.5L of IV fluid bolus's over the course of yesterday afternoon -Received 4mg Dexamethasone in ED -Pressures improved to 114/78 this AM without need for pressors -Random cortisol was low at 2.6 on admission, repeat AM cortisol 0.82 this AM -Suspect with patient's history of low pressures and "feeling bad when low" that she has some form of adrenal insufficiency -Will start patient on oral Hydrocortisone 50mg q8h, can titrate down as appropriate -Anita recommend consulting GI upon downgrade. -With asymptomatic bradycardic as baseline as well running in the 50-60's. RESPIRATORY: -Currently saturating well on room air. -History of Asthma, continue Albuterol and Combivent PRN GI: -Continue daily protonix for GERD -CT abdomen pelvis without acute findings, though with mildly distended GB without other obvious findings of cholecystitis on imaging, labs, or physical exam. Would continue to monitor if patient develops abdominal pain. RENAL/LYTES: -Random cortisol low 2.6, repeat AM cortisol low 0.84 -Given 4mg dex in ED, will start Hydrocortisone 50mg q8h PO now. -Continue to monitor and replete lytes PRN : -Goff catheter in place for strict i/o's -- DC'd overnight -Initial concern for urosepsis as cause for patient's symptoms, though UA n egative -No dysuria since discontinuation of goff cathter. ENDO: -Continue patients home Cytomel 5mg BID -TSH on admission 0.602 HEME: -No acute concerns at this time. ID: -Initial concern for urosepsis -Lactate was 2.1 on admission, improved to 1 after 3L of fluids -Given a dose of Cefepime in the ED, will DC further antibiotics at this time -Patients limited immune response may be secondary to her Rosenda (last used 1 month ago) and Methotrexate use for rheumatoid arthritis LINES/IV ACCESS: 2x 20g PIV CODE STATUS: Full DVT PROPHYLAXIS: SCD, Heparin 5000 BID Thank you for allowing us to participate in the care of this patient. Please refer to my attending physician's documentation for any further recommendations. (2) Bradycardia: (3) Hypothyroidism: (4) Rheumatoid arthritis: (5) Hypotension: (6) Acute kidney injury: Admission and Anticipated Discharge Date Admission Date: June 10, 2020 Supervising Physician Co-Signing Physician Notes Dr Desai was the resident-physician during care of patient. I separately evaluated patient for bentley portions of the history and the exam. I was present during the critical portion of medical decision making, and I discussed the case with the resident. I generally agree with the findings and plan except for any additions/exceptions noted. Patient seen and examined at bedside. No acute distress, no adverse events overnight. Patient is more alert and awake at the time of examination. Answering all questions appropriately. Blood pressure in the 110 systolic at the time of examination. Denies any belly pain, no dysuria, no nausea, no vomiting. Morning cortisol is only 0.8. I would expect it to be higher especially given the patient came in with hypotension. We will start the patient on hydrocortisone 50 mg every 8 hours. Can titrate down to 50 every 12 hours for 2 days followed by 25 every 12 hours for 2 days followed by 20 daily for 2 days and then 10 on a daily basis for couple of days. Recommend endocrinology consult. Patient's polypharmacy needs to be addressed. Would recommend going to the lowest dose of morphine possible. Need to go down on Lyrica as well. Will defer this to primary care and outpatient settings. DC antibiotics. DC Goff. Patient is hemodynamically stable to be downgraded to medical floor. Please note the above document was generated using voice recognition software. It may contain grammatical, syntax or spelling errors.Any formal questions or concerns about the content, text or information contained within the body of this dictation should be directly addressed to the provider for clarification. Subjective Patient evaluated at the bedside this AM. Significantly more awake and alert this AM, able to answer questions appropriately. Noting 6/10 migraine which she typically takes Imitrex for that has been ongoing since overnight and noting over all "fibromyalgia pain" that she takes daily 30mg morphine for in the AM. Otherwise denies any fever, chills, SOB, chest pain, abdominal pain, dysuria. Review of Systems Review of Systems: All systems reviewed & are unremarkable except as noted in Subjective Physical Exam Constitutional: cooperative; no acute distress and not in distress Eyes: PERRL, conjunctivae normal, anicteric sclerae ENMT: external ear and nose normal, oropharynx normal Neck: trachea midline, no thyromegaly Respiratory: normal respiratory effort, lungs clear to auscultation Cardiovascular: Rate/Rhythm: + bradycardic Heart Sounds: no murmur Extremities: no calf tenderness and no edema Gastrointestinal (Abdomen): normal bowel sounds, soft, nontender, no hepatosplenomegaly Musculoskeletal: no cyanosis or clubbing, extremities motor strength 5/5 Skin: no rashes, warm and dry Neurologic: PERRL, EOMI, accommodation nl, no face palsy, no dysarthria normal touch/pain/proprioception Psychiatric: A+Ox3, euthymic affect Genitourinary: Goff catheter has been removed Results & Data Results & Data ([facility]) Vital Signs (Past 12 Hours) Vital Signs Temp Pulse Resp BP Pulse Ox 06/11/20 08:00 50 L 06/11/20 06:33 48 L 20 117/67 96 06/11/20 05:30 36.8 C 54 L 13 116/64 95 06/11/20 04:30 36.7 C 55 L 19 115/81 94 06/11/20 03:29 37.0 C 56 L 19 97/69 L 93 06/11/20 02:36 37.2 C 65 18 110/56 L 96 06/11/20 01:00 37.2 C 69 19 100/66 95 06/11/20 00:04 37.1 C 74 25 H 124/70 94 06/10/20 23:01 37.1 C 61 17 122/61 100 06/10/20 22:16 36.7 C 68 19 109/64 99 06/11/20 04:41 06/11/20 04:41 Resident Activity Tracking Resident Involvement: Resident Care Provided Care Provided: Adult [facility] Medicine
[2020-06-11] MEDS ORDERED: MAGNESIUM OXIDE 400 MG TAB PO ONE (10:00)
[2020-06-11] MEDS: HYDROCORTISONE 10 MG TAB PO SCH ×2 (10:05→16:37)
--- NOTE | 2020-06-11 13:35 | Hospitalist Progress Note ---
Date of Service June 11, 2020 Assessment & Plan (1) Acute metabolic encephalopathy: Weakness and confusion over the last few days prior to admission With dysuria prior to admission and UA collected after received antibiotics so appears clean Difficult to tell if actually had a UTI and sepsis With hypotension, hypothermia, elevated lactate, encephalopathy, and significantly low cortisol-could be all from adrenal insufficiency/crisis. Is significantly improved now status post IV Decadron, IV antibiotics, IV fluids -Would continue antibiotics for UTI as below just for 3 days -Continue steroid replacement as below for adrenal insufficiency -I do not think this is polypharmacy as she has been on her home meds for quite some time without any difficulties previously, however she is becoming elderly and really should have some of her medications cut down to include her Xanax, morphine doses. -For completeness, check vitamin B1 level in the morning to rule out thiamine deficiency (2) Adrenal insufficiency: Noted to have profound hypotension that was not responding to IV fluid boluses initially Random cortisol level only 2.4 in the setting of stress With hypothermia, hypoglycemia, mild acute kidney injury, acute confusion TSH, free T3, free T4 all normal Did receive 1 dose of IV dexamethasone late last night and is significantly improved with that She does have rheumatoid arthritis but is only occasionally on prednisone burst for this and has not had any in months Discussed with endocrinology on the phone-he will see her in the office within 1 week and perform further testing For now, start hydrocortisone 50 mg p.o. 3 times daily and wean down to 20 mg in the morning and 10 mg 8 hours later in the afternoon upon discharge Follow Accu-Cheks, blood pressures (3) Lactate blood increase: Lactate elevated 2.1 on admission with hypotension as above Could be related to sepsis less likely, versus poor perfusion from adrenal crisis, or thiamine deficiency as above -Improved now with IV fluids and improvement in blood pressure along with steroid administration (4) Hypotension: Concern for septic shock vs. adrenal insufficiency as above. BP appears to chronically run low (mostly 90/60 in office visits). - In ED, patient's BP was 75/45 with evidence of end organ dysfunction with elevated Cr and mildly elevated lactate. Improved now as above Continue hydrocortisone (5) Hypoglycemia: As above, noted to be with glucose of 69 upon arrival May be related to adrenal crisis Giving steroids Start Accu-Cheks and NovoLog supplemental insulin as needed for hyperglycemia (6) Hypothermia: Hypothermic upon arrival and improved after receiving IV steroid, again goes along with adrenal crisis (7) Spinal stenosis, lumbar region, with neurogenic claudication: Chronic, longstanding Restart home morphine 30 mg IR p.o. twice daily as needed-she mostly takes just 30 mg in the morning She no longer takes Lyrica-discontinued this and removed from home medication reconciliation Continue home Cymbalta (8) Acute kidney injury: Baseline Cr. ~1.0 in our last lab draw (but back in 2018). - Cr was 1.35 on admission. - Unclear if this is TESSIE/organ dysfunction from hypotension vs. her actual baseline. - S/p 3.5L IVFs in the ED -Creatinine now improved down to 0.81 Follow BMP in the morning (9) Bradycardia: Sinus bradycardia on EKG and telemetry Continues to have asymptomatic sinus bradycardia in the 40s and 50s Review of previous heart rate here in 2018 also shows bradycardia She is not on any AV cristino blocking agents Could be also related to adrenal crisis Follow on telemetry (10) Rheumatoid arthritis: At baseline is on Humira pen Q2w and methotrexate weekly as well as folic acid. Presently has been off Humira due to insurance issues. Believes last dose was sometime in April 2020. - No indication of acute flare at this time. - Hold MTX given concern for sepsis (11) Hypothyroidism: TSH was 0.6 this admission. On liothyronine which is a T3 supplement (instead of usual levothyroxine which is T4) for unknown reasons. -Free T3 and free T4 levels here are normal - Continue liothyronine at home dose of 5 mcg PO BID -Refer to endocrinology as an outpatient (12) Asthma: Not on any maintenance inhalers. - Continue CombiVent PRN (13) Fibromyalgia: Continue home Cymbalta, restart home morphine, Xanax for sleep at night (14) Migraines: Okay to restart Imitrex as needed (15) GERD (gastroesophageal reflux disease): continue PPI (16) DVT prophylaxis: Heparin 5,000 units SQ Q12h Dispo-transfer out of ICU to PCU Admission and Anticipated Discharge Date Admission Date: June 10, 2020 Subjective Patient feeling much better today. She is requesting her chronic pain medicine with morphine which she will usually only takes in the morning although it is prescribed twice a day as needed. She also reports that she Millender takes Lyrica at home as it makes her legs feel weak. She currently has a headache and frequently has to take Imitrex for migraines. She was having dysuria at home for a couple of days prior to admission. She had a Holder catheter removed before I saw her and she has not urinated yet. Denies abdominal pain or nausea. Denies chest pain or shortness of breath. Not lightheaded. She has been on prednisone at various times in the past but never on chronic prednisone for rheumatoid arthritis. Random cortisol level in the ER yesterday was quite low at 2.4 despite possibility of sepsis. A.m. cortisol this morning was also quite low at 0.8 although she did receive IV dexamethasone yesterday evening. Blood pressures are much improved this morning. I discussed the case with endocrinology on the telephone as Dr. Arizmendi is out of town and he is in agreement that she should be started on steroid replacement therapy with hydrocortisone at current doses ordered by ICU and then weaned down to 20 mg in the morning and 10 mg 8 hours later upon discharge. He would like to see her within 1 week in the office and complete the work-up for adrenal insufficiency. Patient reports she is very interested in seeing an dexigraph operator as she has not in the past for her thyroid disease. She has never been on levothyroxine but only Cytomel Telemetry with sinus bradycardia. Patient was not aware that she has had low heart rates but review of the record shows that she also had bradycardia when she was in the hospital in 2019 as well. She had some hypothermia yesterday which is improved. Review of Systems Review of Systems: All systems reviewed & are unremarkable except as noted in HPI & below Physical Exam Constitutional: WD/WN, vitals as above Eyes: PERRL, conjunctivae normal, anicteric sclerae ENMT: external ear and nose normal, oropharynx normal Neck: trachea midline, no thyromegaly Respiratory: normal respiratory effort, lungs clear to auscultation Cardiovascular: Rate/Rhythm: regular rhythm and + bradycardic Heart Sounds: no murmur Extremities: no calf tenderness and no edema Chest (Breasts): Chest: normal inspection of chest Gastrointestinal (Abdomen): normal bowel sounds, soft, nontender, no hepatosplenomegaly Musculoskeletal: Extremities: extremities normal to inspection; no cyanosis and no clubbing Skin: no rashes, warm and dry Neurologic: moves all extremities and awake; no focal motor deficits Psychiatric: A+Ox3, euthymic affect Lymphatic: no lymphedema Results & Data Results & Data ([facility]) Vital Signs (Past 12 Hours) Vital Signs Temp Pulse Resp BP Pulse Ox 06/11/20 12:11 50 L 20 120/63 06/11/20 12:00 36.7 C 06/11/20 09:30 53 L 20 134/65 100 06/11/20 08:30 72 16 114/78 90 06/11/20 08:00 36.7 C 50 L 06/11/20 07:30 36.6 C 50 L 18 128/69 95 06/11/20 06:33 48 L 20 117/67 96 06/11/20 05:30 36.8 C 54 L 13 116/64 95 06/11/20 04:30 36.7 C 55 L 19 115/81 94 06/11/20 03:29 37.0 C 56 L 19 97/69 L 93 06/11/20 02:36 37.2 C 65 18 110/56 L 96 Laboratory Results 06/11/20 06/11/20 06/11/20 Range/Units 07:21 04:41 04:41 WBC 5.73 (4.8-10.8) K/uL RBC 3.29 L (4.2-5.4) M/uL Hgb 10.9 L (12.0-16.0) g/dL Hct 31.9 L (37-47) % MCV 97.0 (80-100) fL MCH 33.1 (25-34) pg MCHC 34.2 (32-36) g/dL RDW Std Deviation 53.7 H (36.4-46.3) fL RDW Coeff of Verónica 15.4 H (11.5-14.5) % Plt Count 344 (130-400) K/uL MPV 10.0 (7.4-10.4) fL Sodium 144 (136-145) mmol/L Potassium 4.0 (3.5-5.1) mmol/L Chloride 115 H (98-107) mmol/L Carbon Dioxide 23 (21-32) mmol/L Anion Gap 6.0 (3-11) BUN 17 (7-18) mg/dl Creatinine 0.81 (0.6-1.2) mg/dl Est Cr Clr Drug Dosing 70.7 ml/min Est GFR ( Amer) 88.3 Est GFR (Non-Af Amer) 76.2 BUN/Creatinine Ratio 20.7 H (10-20) Glucose 141 H (70-99) mg/dl POC Glucose (70-99) mg/dl Calcium 7.9 L (8.5-10.1) mg/dl Phosphorus 2.6 (2.5-4.9) mg/dl Magnesium 1.9 (1.8-2.4) mg/dl Procalcitonin (0-0.5) ng/ml Cortisol AM Sample 0.82 L (4.3-22.4) mcg/dl Nasal Screen MRSA (PCR) (Negative) 06/11/20 06/10/20 06/10/20 Range/Units 00:34 17:15 13:10 WBC (4.8-10.8) K/uL RBC (4.2-5.4) M/uL Hgb (12.0-16.0) g/dL Hct (37-47) % MCV (80-100) fL MCH (25-34) pg MCHC (32-36) g/dL RDW Std Deviation (36.4-46.3) fL RDW Coeff of Verónica (11.5-14.5) % Plt Count (130-400) K/uL MPV (7.4-10.4) fL Sodium (136-145) mmol/L Potassium (3.5-5.1) mmol/L Chloride (98-107) mmol/L Carbon Dioxide (21-32) mmol/L Anion Gap (3-11) BUN (7-18) mg/dl Creatinine (0.6-1.2) mg/dl Est Cr Clr Drug Dosing ml/min Est GFR ( Amer) Est GFR (Non-Af Amer) BUN/Creatinine Ratio (10-20) Glucose (70-99) mg/dl POC Glucose 232 H (70-99) mg/dl Calcium (8.5-10.1) mg/dl Phosphorus (2.5-4.9) mg/dl Magnesium (1.8-2.4) mg/dl Procalcitonin < 0.05 (0-0.5) ng/ml Cortisol AM Sample (4.3-22.4) mcg/dl Nasal Screen MRSA (PCR) Negative (Negative) PG Care Time/CCT Total # of Minutes Spent Total Time Spent with Patient: Total time spent is greater than 50% in coordination of care (as documented) at patient's floor/unit and/or counseling patient: Coding Level of Care Code 88226 Subseq Hosp Care Lvl 3 Diagnoses Acute metabolic encephalopathy G93.41 Adrenal insufficiency E27.40 Lactate blood increase R79.89 Hypotension I95.9 Hypoglycemia E16.2 Hypothermia T68.XXXA Spinal stenosis, lumbar region, with neurogenic claudication M48.062 Acute kidney injury N17.9 Bradycardia R00.1 Rheumatoid arthritis M06.9 Hypothyroidism E03.9 Asthma J45.909 Fibromyalgia M79.7 Migraines G43.909 GERD (gastroesophageal reflux disease) K21.9 DVT prophylaxis Z29.9
[2020-06-11] MEDS ORDERED: PREGABALIN 150 MG CAP PO SCH (13:45)
[2020-06-11] MEDS: MoRPHine SULFATE IR 15 MG TAB (IMMEDIATE RELEASE) PO PRN (14:39)
--- NOTE | 2020-06-11 14:50 | Billing Data ---
Date of Service June 10, 2020 Coding Level of Care Code Critical Care 1st 30-74 mins Time Spent (min) 65
--- NOTE | 2020-06-11 14:54 | Billing Data ---
Date of Service June 11, 2020 Coding Level of Care Code 89191 Subseq Hosp Care Lvl 3
[2020-06-11] MEDS: SUMAtriptan succinate 100 MG TAB PO PRN (15:44)
[2020-06-11] MEDS ORDERED: CALCIUM CARBONATE 500 MG CHEWABLE TAB PO PRN (16:06)
[2020-06-11] MEDS ORDERED: DEXTROSE 50% 50 ML SYRINGE IV PRN (18:39)
[2020-06-11] MEDS ORDERED: CARBOHYDRATES FOR HYPOGLYCEMIA PO PRN (18:39)
[2020-06-11] MEDS ORDERED: GLUCOSE 40% GEL 15 GM TUBE PO PRN (18:39)
[2020-06-11] MEDS ORDERED: GLUCOSE 10 TABS/TUBE PO PRN (18:39)
[2020-06-11] MEDS ORDERED: GLUCAGON FOR INJ 1 MG VIAL SQ PRN (18:39)
[2020-06-11] MEDS ORDERED: cefTRIAXone SODIUM 2,000 MG in DEXTROSE 5% 50 ML IV SCH (20:00)
[2020-06-11] MEDS: DULoxetine HCL 60 MG CAP PO SCH (20:21)
[2020-06-11] MEDS: DULoxetine HCL 30 MG CAP PO SCH (20:21)
[2020-06-11] MEDS: FOLIC ACID 1 MG TAB PO SCH (20:21)
[2020-06-11] MEDS ORDERED: traZODone HCL 100 MG TAB PO SCH (21:00)
[2020-06-11] MEDS ORDERED: ALPRAZolam 0.5 MG TABLET PO SCH (21:00)
[2020-06-11] MEDS: INSULIN ASPART 100 UNITS/ML 3 ML PEN SC SCH (21:05)
[2020-06-12] MEDS: HYDROCORTISONE 10 MG TAB PO SCH ×2 (00:07→08:41)
[2020-06-12] MEDS: SUMAtriptan succinate 100 MG TAB PO PRN (06:42)
[2020-06-12 06:52] LABS: Basophils # (auto) 0.02 K/uL (0-0.2); Basophils % (auto) 0.2 %; Eosinophils # (auto) 0.04 K/uL (0-0.5); Eosinophils % (auto) 0.4 %; Hematocrit (blood only) 31.3 % (37-47); Hemoglobin 10.8 g/dL (12.0-16.0); Immature Granulocytes # (auto) 0.01 K/uL (0.00-0.02); Immature Granulocytes % (auto) 0.1 %; Lymphocytes % (auto) 23.3 %; Mean Corpuscular Hemoglobin 32.8 pg (25-34); Mean Corpuscular Hgb Conc 34.5 g/dL (32-36); Mean Corpuscular Volume 95.1 fL (80-100); Mean Platelet Volume 10.4 fL (7.4-10.4); Monocytes # (auto) 0.62 K/uL (0.11-0.59); Monocytes % (auto) 6.9 %; Neutrophils # (auto) 6.21 K/uL (1.4-6.5); Neutrophils % (auto) 69.1 %; Platelet Count 331 K/uL (130-400); RDW Coefficient of Variation 15.8 % (11.5-14.5); RDW Standard Deviation 53.9 fL (36.4-46.3); Red Blood Count 3.29 M/uL (4.2-5.4)
[2020-06-12 07:15] LABS: Estimated Average Glucose 120 mg/dl; Hemoglobin A1C 5.8 % (4.5-5.6)
[2020-06-12 07:21] LABS: Albumin Level 3.1 gm/dl (3.4-5.0); BUN Creatinine Ratio 18.5 (10-20); Calcium 8.7 mg/dl (8.5-10.1); Creatinine Clr Calc Pharmacy 68.7 ml/min; Est GFR (African American) 83.3; Est GFR (Non-African American) 71.9; Magnesium 2.1 mg/dl (1.8-2.4); Potassium 3.5 mmol/L (3.5-5.1)
[2020-06-12 07:34] LABS: Albumin Globulin Ratio 1.1 (0.9-2); Bilirubin,Total 0.3 mg/dl (0.2-1); Globulin 2.9 gm/dl (2.5-4.0)
[2020-06-12] MEDS: CLOPIDOGREL BISULFATE 75 MG TAB PO SCH (08:41)
[2020-06-12] MEDS: PANTOprazole 40 MG TAB PO SCH (08:41)
[2020-06-12] MEDS: LIOTHYRONINE SODIUM 5 MCG TAB PO SCH (08:41)
[2020-06-12] MEDS: ASPIRIN 81 MG ECTAB PO SCH (08:41)
[2020-06-12] MEDS: INSULIN ASPART 100 UNITS/ML 3 ML PEN SC SCH ×2 (08:42→11:39)
[2020-06-12] MEDS: HEPARIN SOD 5,000 UNIT/0.5 ML VIAL SQ SCH (08:56)
[2020-06-12] MEDS: MoRPHine SULFATE IR 15 MG TAB (IMMEDIATE RELEASE) PO PRN (11:38)
--- NOTE | 2020-06-12 13:26 | Discharge Summary ---
Date of Service June 12, 2020 Admission HPI Per Admitting Provider 64yo F w/ hx of rheumatoid arthritis, hypothyroidism, hx of CVA who presents with hypotension, falls, confusion, and weakness for the last few days. She reports that her has told her she has been confused for about 2-3 days. She does not remember this, but does know that she has had more "jerkiness" and felt she was dropping things and falling at home. She has noted some burning with urination over the last few days and in the last day a reduced amount of urine output. Today, she felt that her knees were giving out on her, and she reports overall weakness. She is not a good historian and reports that her was getting upset with her, but wasn't sure why. She notes some subjective chills over the last day or two, but no objective fever. She also had a headache and reports some "vision trouble" yesterday, but reports none today. Denies any chest pain or abdominal pain, denies any diarrhea or constipation, denies any blood in stool. Denies any rashes or sores/ulcers on her body. Principal Diagnosis Acute metabolic encephalopathy, adrenal insufficiency, hypotension Discharge Exam Constitutional WD/WN, vitals as above Eyes + anicteric sclerae ENMT external ear and nose normal, oropharynx normal Neck trachea midline, no thyromegaly Respiratory normal respiratory effort, lungs clear to auscultation Cardiovascular Rate/Rhythm: regular rhythm and + bradycardic Heart Sounds: no murmur Extremities: no calf tenderness and no edema Chest (Breasts) Chest: normal inspection of chest Gastrointestinal (Abdomen) normal bowel sounds, soft, nontender, no hepatosplenomegaly Musculoskeletal Extremities: extremities normal to inspection; no cyanosis and no clubbing Skin no rashes, warm and dry Neurologic moves all extremities and awake; no focal motor deficits Psychiatric A+Ox3, euthymic affect Lymphatic no lymphedema Discharge Data Allergies Allergy/AdvReac Type Severity Reaction Status Date / Time fentanyl Allergy Unknown skin Verified 06/10/20 15:56 irritation - patch gabapentin [From Neurontin] AdvReac shaky Verified 06/10/20 15:57 Consultations 06/10/20 15:11 ED Decision to Admit Stat 06/10/20 17:20 Consult Broadcast Journalist Routine Ordered Studies 06/10/20 13:13 CT head/brain wo con Stat 06/10/20 18:38 CT abd pelvis oral con only Urgent Chest x-ray Hospital Course (1) Acute metabolic encephalopathy: Weakness and confusion over the last few days prior to admission With dysuria prior to admission and UA collected after received antibiotics so appears clean Difficult to tell if actually had a UTI and sepsis but likely not With hypotension, hypothermia, elevated lactate, encephalopathy, and significantly low cortisol-could be all from adrenal insufficiency/crisis. Is significantly improved now status post IV Decadron, IV antibiotics, IV fluids No further antibiotics needed -Continue steroid replacement as below for adrenal insufficiency -I do not think this is polypharmacy as she has been on her home meds for quite some time without any difficulties previously, however she is becoming elderly and really should have some of her medications cut down to include her Xanax, morphine doses. -For completeness, check vitamin B1 level to rule out thiamine deficiency which is pending at the time of discharge (2) Adrenal insufficiency: Noted to have profound hypotension that was not responding to IV fluid boluses initially Random cortisol level only 2.4 in the setting of stress With hypothermia, hypoglycemia, mild acute kidney injury, acute confusion TSH, free T3, free T4 all normal Did receive 1 dose of IV dexamethasone on the night of admission and was significantly improved with that She does have rheumatoid arthritis but is only occasionally on prednisone burst for this and has not had any in months Discussed with endocrinology on the phone-he will see her in the office within 1 week and perform further testing For now, start hydrocortisone 20 mg in the morning and 10 mg 8 hours later in the afternoon upon discharge Follow blood pressures at home as they have been elevated here with higher dose steroids (3) Lactate blood increase: Lactate elevated 2.1 on admission with hypotension as above Could be related to sepsis less likely, versus poor perfusion from adrenal crisis, or thiamine deficiency as above -Improved now with IV fluids and improvement in blood pressure along with steroid administration (4) Hypotension: Concern for septic shock vs. adrenal insufficiency as above. BP appears to chronically run low (mostly 90/60 in office visits). - In ED, patient's BP was 75/45 with evidence of end organ dysfunction with elevated Cr and mildly elevated lactate. Improved now as above Continue hydrocortisone after discharge Watch blood pressures at home (5) Hypoglycemia: As above, noted to be with glucose of 69 upon arrival May be related to adrenal crisis Giving steroids and now blood sugars are mildly elevated Start Accu-Cheks and NovoLog supplemental insulin as needed for hyperglycemia (6) Hypothermia: Hypothermic upon arrival and improved after receiving IV steroid, again goes along with adrenal crisis (7) Spinal stenosis, lumbar region, with neurogenic claudication: Chronic, longstanding Continue home morphine 30 mg IR p.o. twice daily as needed-she mostly takes just 30 mg in the morning She no longer wants to take Lyrica due to possible side effects-advised her to take 150 mg at night for 3 days and then stop to avoid withdrawal Continue home Cymbalta (8) Acute kidney injury: Baseline Cr. ~1.0 in our last lab draw (but back in 2018). - Cr was 1.35 on admission. - Unclear if this is TESSIE/organ dysfunction from hypotension vs. her actual baseline. - S/p 3.5L IVFs in the ED -Creatinine now improved down to normal (9) Bradycardia: Sinus bradycardia on EKG and telemetry Continues to have asymptomatic sinus bradycardia in the 40s and 50s at times but comes up appropriately to the 60s with exertion Review of previous heart rate here in 2018 also shows bradycardia She is not on any AV cristino blocking agents Could be also related to adrenal crisis (10) Rheumatoid arthritis: At baseline is on Humira pen Q2w and methotrexate weekly as well as folic acid. Presently has been off Humira due to insurance issues. Believes last dose was sometime in April 2020. - No indication of acute flare at this time. -Continue methotrexate (11) Hypothyroidism: TSH was 0.6 this admission. On liothyronine at home -Free T3 and free T4 levels here are normal - Continue liothyronine at home dose of 5 mcg PO BID -Refer to endocrinology as an outpatient (12) Asthma: Not on any maintenance inhalers. - Continue CombiVent PRN (13) Fibromyalgia: Continue home Cymbalta, home morphine, Xanax for sleep at night (14) Migraines: Continue Imitrex as needed Had a headache here on the day of discharge which resolved with drinking caffeine (15) GERD (gastroesophageal reflux disease): continue PPI (16) DVT prophylaxis: Heparin 5,000 units SQ Q12h was given Dispo-stable for discharge to home, doing very well Close follow-up with endocrinology Total Time Total Time Spent Total Time Spent (In Minutes): 35 min Total Time Includes: Examination of the Patient, Discharge Planning and Medication Reconciliation Discharge Plan Discharge Items Patient Disposition: Home - Self-Care Reason For Visit: HYPOTENSION, POSSIBLE UROSEPSIS Discharge Diagnosis: Adrenal insufficiency/Crisis,Hypotension, UTI Condition on Discharge: Good Activity: As commented below Lifting: Gradually increase as tolerated Bathing: No limitations Exercise/Sports: Gradually increase as tolerated Non-emergency contact: Primary Care Provider Call non-emergency contact if: you have any medication questions and your symptoms worsen Follow-up/Referrals: Garland Arizmendi MD [Physician] - 07/02/20 1:00 pm (Please follow up within 1 week.) Jesus Young Jr, [Primary Care Provider] - 06/18/20 11:45 am (Follow up within 1-2 weeks. THIS APT IS A PHONE FOLLOW UP APT, YOU DO NOT HAVE TO GO TO DR ABREU OFFICE) Diet: Heart Healthy Addtl Attending Provider Instructions: You were admitted with hypothermia, low blood pressure, low blood sugar, and confusion. There was some initial suspicion for a urinary tract infection and sepsis but this seemed less likely after further testing. Your cortisol (stress hormone) levels were quite low on testing and you seem to have adrenal insufficiency. You were started on steroids and had a dramatic improvement in your condition. Please continue on the hydrocortisone 20mg in the morning and 10mg at 3:00 PM every day. An appointment will be made for you with the Medicare Insurance Specialist for within 1 week for further evaluation. Your blood pressures were a little bit elevated after starting the hydrocortisone steroid, but this was after taking a high dose of steroid. Please monitor your blood pressures at home 2-3 times per day over the next week. If they are persistently greater than 160/90, or certainly if they are ever in the 180s or higher for the top number, please call your doctor. If your blood pressure is ever less than 90 and you feel lightheaded or confused, please come back to the hospital or call your doctor right away. At your request, your Lyrica was discontinued as this may have been causing you adverse side effects. Because this can cause withdrawal symptoms if stopped too suddenly, it is recommended that you take Lyrica 150mg at bedtime only for 3 days and then stop. Pending Studies at Discharge: Yes Studies:: Vitamin B1 level Stand-Alone Forms: My [facility] Medications and DC Order Prescriptions: New hydrocortisone [Cortef] 10 mg Tablet 20 mg PO QAM Qty: 90 RF: 0 Continued aspirin 81 mg Tablet,Delayed Release (Dr/Ec) 81 mg PO DAILY Qty: 0 RF: 0 duloxetine [Cymbalta] 30 mg Capsule,Delayed Release(Dr/Ec) 30 mg PO HS Qty: 0 RF: 0 duloxetine [Cymbalta] 60 mg Capsule,Delayed Release(Dr/Ec) 60 mg PO HS Qty: 0 RF: 0 polyethylene glycol 3350 [Miralax] 17 gram Powder In Packet 17 g PO HS PRN (Reason: Constipation) Qty: 0 RF: 0 sumatriptan succinate [Imitrex] 100 mg Tablet 1 tab PO DAILY PRN (Reason: Headache) Qty: 0 RF: 0 liothyronine 5 mcg Tablet 5 mcg PO BID Qty: 60 RF: 0 folic acid 1 mg Tablet 4 mg PO QPM Qty: 60 RF: 0 Combivent Respimat 20-100 mcg/actuation Mist 2 puff Inhalation Q4 PRN (Reason: sob) Qty: 4 RF: 0 alprazolam [Xanax] 0.5 mg tablet 0.5 mg PO HS Qty: 0 RF: 0 albuterol sulfate 5 mg/mL solution for nebulization 5 mg inhalation DAILY PRN (Reason: sob) RF: 0 clopidogrel [Plavix] 75 mg Tablet 75 mg PO QAM RF: 0 methotrexate sodium 2.5 mg Tablet 7.5 mg PO WK RF: 0 trazodone 100 mg Tablet 200 mg PO HS RF: 0 omeprazole 20 mg Capsule,Delayed Release(Dr/Ec) 20 mg PO QAM RF: 0 alprazolam [Xanax] 0.5 mg tablet 0.5 mg PO DAILY PRN (Reason: Anxiety) RF: 0 estradiol [Vagifem] 10 mcg tablet 10 mcg PV .[id number] RF: 0 baclofen 10 mg tablet 10 mg PO BID PRN (Reason: Muscle Spasm) RF: 0 morphine 15 mg tablet 30 mg PO BID PRN (Reason: Pain) RF: 0 Changed pregabalin 150 mg capsule 150 mg PO HS Qty: 0 RF: 0 Discharge Orders: Discharge Order (Routine); Ordered 06/12/20 Ordered By: Ashely Russell Admission Data Admit Date/Time: 06/10/20 16:42 Attending Provider: Ashely Russell Admit Provider: Jerry King Primary Care Provider: Jesus Young Jr Other Providers: Jerry King ; Edyta Good Other Interventions: Discharge Summary Assessment (RN) Last Done: 06/12/20 13:39 Coding Level of Care Code D/C Day Management >30 mins Diagnoses Acute metabolic encephalopathy G93.41 Adrenal insufficiency E27.40 Lactate blood increase R79.89 Hypotension I95.9 Hypoglycemia E16.2 Hypothermia T68.XXXA Spinal stenosis, lumbar region, with neurogenic claudication M48.062 Acute kidney injury N17.9 Bradycardia R00.1 Rheumatoid arthritis M06.9 Hypothyroidism E03.9 Asthma J45.909 Fibromyalgia M79.7 Migraines G43.909 GERD (gastroesophageal reflux disease) K21.9 DVT prophylaxis Z29.9
[2020-06-12] MEDS ORDERED: HYDROCORTISONE 10 MG TAB PO SCH (15:00)
[2020-06-13] MEDS ORDERED: HYDROCORTISONE 10 MG TAB PO SCH (09:00)
[2020-06-14 09:48] LABS: Codeine Urine NEGATIVE ng/mL (<50); Hydrocodone Urine NEGATIVE ng/mL (<50); Hydromor Urine 127 ng/mL (<50); MDA negative; MDEA negative; MDMA (Ecstasy) Urine, Confirm negative; Marijuana Quant, GCMS Urine NEGATIVE ng/mL (<5); Morphine Urine >10000 ng/mL (<50); Norhydrocodone Conf Ur NEGATIVE ng/mL (<50); Noroxycodone Urine NEGATIVE ng/mL (<50); Oxycodone Urine NEGATIVE ng/mL (<50); Oxymorph Urine NEGATIVE ng/mL (<50)
== END 2020-06-12 14:01 | disposition home or self-care (01) ==
LOC: ED 12:36 → INTOOBSV 16:42 → SUATTDRO 16:42 → 1E 16:42 → 2S 06-11 17:17

== ENCOUNTER 2020-08-01 11:03 | Observation (INO) ==
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
[2020-08-01] MEDS ORDERED: ACETAMINOPHEN 325 MG TAB PO STA (11:37)
[2020-08-01] MEDS ORDERED: dexAMETHasone**PF** 10 MG/ML VIAL IV ONE (11:37)
[2020-08-01] MEDS ORDERED: MAGNESIUM SULFATE / D5W 1 GM/100 ML BAG IV ONE (11:37)
[2020-08-01] MEDS ORDERED: SODIUM CHLORIDE 0.9% 1000ML 1,000 ML IV SCH (11:45)
[2020-08-01 11:56] LABS: Basophils # (auto) 0.02 K/uL (0-0.2); Basophils % (auto) 0.2 %; Eosinophils # (auto) 0.02 K/uL (0-0.5); Eosinophils % (auto) 0.2 %; Hematocrit (blood only) 39.5 % (37-47); Immature Granulocytes # (auto) 0.03 K/uL (0.00-0.02); Immature Granulocytes % (auto) 0.2 %; Lymphocytes # (auto) 1.55 K/uL (1.2-3.4); Lymphocytes % (auto) 12.9 %; Mean Corpuscular Hemoglobin 33.9 pg (25-34); Mean Corpuscular Hgb Conc 35.4 g/dL (32-36); Mean Corpuscular Volume 95.6 fL (80-100); Mean Platelet Volume 10.1 fL (7.4-10.4); Monocytes # (auto) 0.47 K/uL (0.11-0.59); Monocytes % (auto) 3.9 %; Neutrophils # (auto) 9.96 K/uL (1.4-6.5); Neutrophils % (auto) 82.6 %; Platelet Count 500 K/uL (130-400); RDW Coefficient of Variation 16.1 % (11.5-14.5); RDW Standard Deviation 55.4 fL (36.4-46.3); Red Blood Count 4.13 M/uL (4.2-5.4); White Blood Count 12.05 K/uL (4.8-10.8)
[2020-08-01 12:06] LABS: Prothrombin Time 10.4 Seconds (9.0-12.0)
[2020-08-01 12:12] LABS: Alanine Aminotransferase 19 U/L (12-78); Albumin Level 3.7 gm/dl (3.4-5.0); Aspartate Aminotransferase 11 U/L (15-37); BUN Creatinine Ratio 21.2 (10-20); Blood Urea Nitrogen 16 mg/dl (7-18); Calcium 9.7 mg/dl (8.5-10.1); Carbon Dioxide 26 mmol/L (21-32); Chloride 110 mmol/L (98-107); Est GFR (African American) 97.8; Est GFR (Non-African American) 84.4; Glucose 131 mg/dl (70-99); Potassium 3.4 mmol/L (3.5-5.1); Sodium 142 mmol/L (136-145)
--- NOTE | 2020-08-01 12:15 | CT Scan Report ---
CT OF THE HEAD WITHOUT CONTRAST CLINICAL HISTORY: Headache. Confusion. COMPARISON STUDY: MRI of the brain December 22, 2017. Head CT June 10, 2020. CT DOSE: 614.27 mGy.cm TECHNIQUE: Helical axial images of the head were obtained without IV contrast. Automated exposure con trol was utilized for the study. A dose lowering technique was utilized adhering to the principles o f ALARA. FINDINGS: No acute intracranial hemorrhage, midline shift or mass effect is present. Ventricular syst em is stable. Basilar cisterns are patent. A CSF attenuation left retrocerebellar focus is unchanged. This is benign. Old right frontoparietal infarct are again noted. There are no findings to suggest a cute dural sinus thrombosis or acute territorial infarct. There is no calvarial fracture. Visualized portions of the sinuses and mastoid air cells are clear. IMPRESSION: No acute intracranial findings. No change in appearance of the brain. Several old right frontoparietal infarcts. ACT 112: Negative or not required by law. Electronically signed by: Eliu Cavazos M.D. 08/01/2020 12:14 PM
[2020-08-01 12:23] LABS: Alkaline Phosphatase 350 U/L (45-117); Bilirubin,Total 0.6 mg/dl (0.2-1); Globulin 3.7 gm/dl (2.5-4.0); Thyroid Stimulating Hormone 0.332 uIu/ml (0.300-4.500); Total Protein 7.4 gm/dl (6.4-8.2); Troponin I < 0.015 ng/ml (0-0.045)
[2020-08-01 13:36] LABS: Influenza A virus by PCR Negative (Neg); Influenza B virus by PCR Negative (Neg); RSV by PCR Negative (Neg); SARS CoV2 RNA(COVID-19) InHosp NEGATIVE (Negative)
[2020-08-01 16:33] LABS: Appearance Urine Clear (Clear); Bilirubin Urine Negative (Negative); Blood Urine Negative (Negative); Color Urine Dark Yellow; Glucose Urine UA Negative (Negative); Ketones Urine 2+ (Negative); Leukocyte Esterase Urine Negative (Negative); Nitrite Urine Negative (Negative); Protein Urine Negative (Negative); Specific Gravity Urine 1.028 (1.000-1.030); Urobilinogen Urine Negative (Negative)
[2020-08-01] MEDS ORDERED: LORazepam 0.5 MG/1 ML VIAL IV STA (17:41)
[2020-08-01] MEDS ORDERED: SUMAtriptan succinate 100 MG TAB PO PRN (18:02)
[2020-08-01] MEDS ORDERED: POLYETHYLENE (MIRALAX) 17 GM PACK PO PRN (18:02)
[2020-08-01] MEDS ORDERED: BACLOFEN 10 MG TAB PO PRN (18:02)
[2020-08-01] MEDS ORDERED: PREGABALIN 150 MG CAP PO SCH (21:00)
[2020-08-01] MEDS ORDERED: ASPIRIN 81 MG ECTAB PO SCH (21:00)
[2020-08-01] MEDS ORDERED: traZODone HCL 100 MG TAB PO SCH (21:00)
[2020-08-01] MEDS ORDERED: DULoxetine HCL 60 MG CAP PO SCH (21:00)
[2020-08-01] MEDS ORDERED: DULoxetine HCL 30 MG CAP PO SCH (21:00)
[2020-08-01] MEDS ORDERED: FOLIC ACID 1 MG TAB PO SCH (21:00)
[2020-08-01] MEDS: MoRPHine SULFATE IR 15 MG TAB (IMMEDIATE RELEASE) PO SCH (21:15)
[2020-08-01 22:37] LABS: Appearance Urine Clear (Clear); Bilirubin Urine Negative (Negative); Blood Urine Negative (Negative); Color Urine Yellow; Glucose Urine UA Negative (Negative); Ketones Urine 2+ (Negative); Leukocyte Esterase Urine Negative (Negative); Nitrite Urine Negative (Negative); Protein Urine Negative (Negative); Specific Gravity Urine 1.027 (1.000-1.030); Urobilinogen Urine Negative (Negative); pH Urine 6.5 (4.5-7.5)
[2020-08-01 22:55] LABS: Amphetamines+Metham, Urine Neg (Neg); Barbiturates, Urine Neg (Neg); Benzodiazepine, Urine Pos (Neg); Cocaine, Urine Neg (Neg); MDMA (Ecstacy), Urine Neg (Neg); Methadone, Urine Neg (Neg); Opiate, Urine Pos (Neg); Phencyclidine, Urine Neg (Neg)
--- NOTE | 2020-08-02 06:26 | Electrocardiogram Report ---
Test Reason : Blood Pressure : / mmHG Vent. Rate : 062 BPM Atrial Rate : 062 BPM P-R Int : 162 ms QRS Dur : 096 ms QT Int : 420 ms P-R-T Axes : 023 -01 029 degrees QTc Int : 426 ms Normal sinus rhythm Minimal voltage criteria for LVH, may be normal variant Borderline ECG When compared with ECG of 10-JUN-2020 13:25, No significant change was found Confirmed by Dirk Ray ([id number]) on 08/02/2020 6:26:23 AM Referred By: REFERRED SELF Confirmed By:Dirk Ray
[2020-08-02] MEDS ORDERED: HYDROCORTISONE 10 MG TAB PO SCH ×2 (09:00→15:00)
[2020-08-02] MEDS ORDERED: PANTOprazole 40 MG TAB PO SCH (09:00)
[2020-08-02] MEDS ORDERED: CLOPIDOGREL BISULFATE 75 MG TAB PO SCH (09:00)
[2020-08-02] MEDS ORDERED: OXYBUTYNIN CHLORIDE XL 5 MG TABCR PO SCH (09:00)
[2020-08-02] MEDS: MoRPHine SULFATE IR 15 MG TAB (IMMEDIATE RELEASE) PO SCH ×2 (09:09→15:04)
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
[2020-08-02] MEDS ORDERED: CALCIUM CARBONATE 500 MG CHEWABLE TAB PO ONE (10:30)
[2020-08-02] MEDS ORDERED: ALPRAZolam 0.5 MG TABLET PO STA (13:15)
[2020-08-03] MEDS ORDERED: metHOTREXate sodium 2.5 MG TAB PO SCH (09:00)
[2020-08-04 04:33] LABS: 7-Aminoclonaz, Confirm NEGATIVE ng/mL (<25); Codeine Urine NEGATIVE ng/mL (<50); Hydro-Alp Ur, GC/MS 315 ng/mL (<25); Hydrocodone Urine NEGATIVE ng/mL (<50); Hydromor Urine 331 ng/mL (<50); Hydroxyethylflurazepam, Conf NEGATIVE ng/mL (<50); Hydroxymidazolam Ur, GC/MS NEGATIVE ng/mL (<50); Hydroxytriazolam NEGATIVE ng/mL (<50); Lorazepam, Ur GC/MS 83 ng/mL (<50); Marijuana Quant, GCMS Urine 314 ng/mL (<5); Morphine Urine >10000 ng/mL (<50); Nordiazepam, Confirm NEGATIVE ng/mL (<50); Norhydrocodone Conf Ur NEGATIVE ng/mL (<50); Noroxycodone Urine NEGATIVE ng/mL (<50); Oxazepam Ur, GC/MS NEGATIVE ng/mL (<50); Oxycodone Urine NEGATIVE ng/mL (<50); Oxymorph Urine NEGATIVE ng/mL (<50); Temazepam, Confirm NEGATIVE ng/mL (<50)
--- NOTE | 2020-08-08 08:51 | Discharge Summary ---
Date of Service August 02, 2020 Admission HPI Per Admitting Provider 65 yo female is brought in by her . He reports she is very confused today. He states she has been confused for the past few weeks, and it has gradually been getting worse. The attributes this to her pain medications being increased. He is also worried that this may also be due her not being compliant with her corticosteroids at home. He states this is similar to that episode a few months ago. The patient was unable to keep a follow-up with her service delivery management consultant 2 weeks ago secondary to pain from a prior fall that resulted in a pelvic fracture. The patient denies any fevers chills chest pain shortness of breath nausea or vomiting. Principal Diagnosis Confusion likely from polypharmacy Discharge Exam Constitutional: WD/WN, vitals as above Eyes: EOM intact bilaterally; no conjunctival abnormality ENMT: external ear and nose normal, oropharynx normal Neck: trachea midline, no thyromegaly normal visual inspection Respiratory: normal respiratory effort, lungs clear to auscultation no respiratory distress Cardiovascular: Rate/Rhythm: regular rhythm and + bradycardic Heart Sounds: normal S1 and normal S2 Vessels: no JVD Extremities: no edema Gastrointestinal (Abdomen): Inspection/Auscultation: abdomen normal to inspection; abdomen not distended Musculoskeletal: no cyanosis or clubbing, extremities motor strength 5/5 Skin: no rashes, warm and dry Neurologic: moves all extremities and awake Psychiatric: Orientation: alert, oriented to person and cooperative Discharge Data Allergies Allergy/AdvReac Type Severity Reaction Status Date / Time fentanyl Allergy Unknown skin Verified 08/01/20 13:50 irritation - patch gabapentin [From Neurontin] AdvReac shaky Verified 08/01/20 13:50 Consultations 08/01/20 16:50 ED Decision to Admit Stat Ordered Studies 08/01/20 11:37 CT head/brain wo con Stat Hospital Course (1) Confusion: Concern over polypharmacy. Likely culprit . She was recently had her morphine elevated as an outpatient due to her recent fall. She improved after cutting back on benzo and morphine. explained to patient to cut back on frequency on these medications (2) GERD (gastroesophageal reflux disease): appears stable . (3) Adrenal insufficiency: does not appear to be in adrenal insuffiency as random cortisol is above 30. (4) Rheumatoid arthritis: At baseline is on Humira pen Q2w and methotrexate weekly. Presently has been off Humira due to insurance issues. Believes last dose was sometime in April 2020. - No indication of acute flare at this time. (5) Fibromyalgia: on multiple meds will continue cymbalta will continue lyrica will hold benzos will monitor for withdrawal will cut back on morphine. (6) Asthma: not on maintenance meds Total Time Total Time Spent Total Time Spent (In Minutes): 32 Total Time Includes: Examination of the Patient, Discharge Planning and Medication Reconciliation Discharge Plan Discharge Items Patient Disposition: Home - Self-Care Reason For Visit: CONFUSION Discharge Diagnosis: CONFUSION Activity: Resume your previous activity Non-emergency contact: Primary Care Provider Call non-emergency contact if: you have any medication questions Follow-up/Referrals: Jesus Young Jr, [Primary Care Provider] - Diet: Heart Healthy Addtl Attending Provider Instructions: You came in very confused. It appears your confusion could be secondary to the combination of pain medicine and anxiety medications. You will likely need to have your pain medicine cut back. Instead of taking 6 pills a day, try to aim for 3-4 a day. We cut back on your morphine while you were here to 4.5 tabs a day. And if you are having a good day, try to limit even more on those days. In regards to your anxiety, you may also benefit from cutting back on your medications. Maybe 0-1 pills a day. Doing this will help limit your episodes of confusion. Pending Studies at Discharge: No Stand-Alone Forms: My [facility] [employer], Smoking Cessation Medications and DC Order Prescriptions: New morphine 15 mg Tablet 22.5 mg PO TID Qty: 30 RF: 0 Continued aspirin 81 mg Tablet,Delayed Release (Dr/Ec) 81 mg PO HS Qty: 0 RF: 0 duloxetine [Cymbalta] 30 mg Capsule,Delayed Release(Dr/Ec) 30 mg PO HS Qty: 0 RF: 0 duloxetine [Cymbalta] 60 mg Capsule,Delayed Release(Dr/Ec) 60 mg PO HS Qty: 0 RF: 0 polyethylene glycol 3350 [Miralax] 17 gram Powder In Packet 17 g PO HS PRN (Reason: Constipation) Qty: 0 RF: 0 sumatriptan succinate [Imitrex] 100 mg Tablet 1 tab PO DAILY PRN (Reason: Headache) Qty: 0 RF: 0 folic acid 1 mg Tablet 4 mg PO HS Qty: 60 RF: 0 Combivent Respimat 20-100 mcg/actuation Mist 2 puff Inhalation Q4 PRN (Reason: sob) Qty: 4 RF: 0 alprazolam [Xanax] 0.5 mg tablet 0.5 mg PO HS Qty: 0 RF: 0 clopidogrel [Plavix] 75 mg Tablet 75 mg PO QAM RF: 0 methotrexate sodium 2.5 mg Tablet 10 mg PO WK RF: 0 trazodone 100 mg Tablet 200 mg PO HS RF: 0 omeprazole 20 mg Capsule,Delayed Release(Dr/Ec) 20 mg PO QAM RF: 0 alprazolam [Xanax] 0.5 mg tablet 0.5 mg PO DAILY PRN (Reason: Anxiety) RF: 0 baclofen 10 mg tablet 10 mg PO BID PRN (Reason: Muscle Spasm) RF: 0 estradiol [Vagifem] 10 mcg tablet 10 mcg PV 2XWK RF: 0 hydrocortisone [Cortef] 10 mg tablet See Rx Instructions .ROUTE .COMPLEX RF: 0 pregabalin 150 mg capsule 300 mg PO HS RF: 0 oxybutynin chloride 10 mg tablet extended release 24hr 10 mg PO QAM RF: 0 Discontinued morphine 15 mg tablet 30 mg PO TID RF: 0 Discharge Orders: Discharge Order (Routine); Ordered 08/02/20 Ordered By: Fernando Dubois/Other Patient Handouts: ED Confusion Admission Data Admit Date/Time: 08/01/20 18:00 Attending Provider: Fernando Jenkins Admit Provider: Fernando Jenkins Primary Care Provider: Jesus Young Jr Other Providers: Fernando Jenkins Other Interventions: Discharge Summary Assessment (RN) Last Done: 08/02/20 14:21 Coding Level of Care Code D/C Day Management >30 mins Diagnoses Confusion R41.0 GERD (gastroesophageal reflux disease) K21.9 Adrenal insufficiency E27.40 Rheumatoid arthritis M06.9 Fibromyalgia M79.7 Asthma J45.909 Time Spent (min) 32
== END 2020-08-02 15:16 | disposition home or self-care (01) | DRG 948 ==
LOC: ED 11:03 → INTOOBSV 18:00 → 3W 18:00

== ENCOUNTER 2021-04-10 01:49 | Inpatient (IN) ==
[2021-04-10] MEDS ORDERED: SODIUM CHLORIDE 0.9% 1000ML 1,000 ML IV SCH (02:30)
[2021-04-10 02:50] LABS: Hematocrit (blood only) 39.3 % (37-47); Hemoglobin 13.3 g/dL (12.0-16.0); Immature Granulocytes # (auto) 0.02 K/uL (0.00-0.02); Immature Granulocytes % (auto) 0.5 %; Lymphocytes # (auto) 0.65 K/uL (1.2-3.4); Lymphocytes % (auto) 17.2 %; Mean Corpuscular Hemoglobin 32.4 pg (25-34); Mean Corpuscular Hgb Conc 33.8 g/dL (32-36); Mean Corpuscular Volume 95.9 fL (80-100); Mean Platelet Volume 10.1 fL (7.4-10.4); Monocytes # (auto) 0.01 K/uL (0.11-0.59); Monocytes % (auto) 0.3 %; Neutrophils # (auto) 3.11 K/uL (1.4-6.5); Nucleated RBC % (auto) 2.5 %; Platelet Count 289 K/uL (130-400); RDW Coefficient of Variation 15.2 % (11.5-14.5); RDW Standard Deviation 52.8 fL (36.4-46.3); White Blood Count 3.79 K/uL (4.8-10.8)
[2021-04-10 03:09] LABS: Albumin Level 3.1 gm/dl (3.4-5.0); BUN Creatinine Ratio 26.6 (10-20); Calcium 8.7 mg/dl (8.5-10.1); Creatinine Clr Calc Pharmacy 71.5 ml/min; Est GFR (African American) 86.4 ml/min; Est GFR (Non-African American) 74.6 ml/min; Magnesium 2.1 mg/dl (1.8-2.4)
[2021-04-10 03:14] LABS: Acanthocytes 1+; Echinocytes 1+; Howell-Jolly Bodies 1+
[2021-04-10 03:28] LABS: Influenza A virus by PCR Negative (Neg); Influenza B virus by PCR Negative (Neg); RSV by PCR Negative (Neg)
[2021-04-10 03:33] LABS: Albumin Globulin Ratio 0.9 (0.9-2); Bilirubin,Total 0.4 mg/dl (0.2-1); Globulin 3.6 gm/dl (2.5-4.0); Thyroid Stimulating Hormone 0.069 uIu/ml (0.300-4.500); Total Protein 6.7 gm/dl (6.4-8.2); Troponin I 0.125 ng/ml (0-0.045)
[2021-04-10 03:34] LABS: SARS CoV2 RNA(COVID-19) InHosp POSITIVE (Negative)
[2021-04-10 03:48] LABS: T4 Free Thyroxine 1.52 ng/dl (0.8-1.6)
[2021-04-10] MEDS ORDERED: Heparin IV Adult Wt-Based Low-Dose WITH Bolus Protocol STA (04:26)
[2021-04-10] MEDS ORDERED: ASPIRIN CHEW 324 MG PO STA (04:27)
[2021-04-10] MEDS ORDERED: AZITHROMYCIN 500 MG in DEXTROSE 5% 250 ML IV STA (04:30)
[2021-04-10] MEDS ORDERED: cefTRIAXone SODIUM 1,000 MG/50 ML BAG IV STA (04:30)
[2021-04-10] MEDS ORDERED: HEPARIN SOD (PORCINE) 1000 UNIT/ML IV ONE (04:41)
[2021-04-10] MEDS ORDERED: HEPARIN SODIUM/DEXTROSE 25,000 UNITS/500 ML BAG IV SCH (04:45)
[2021-04-10 05:02] LABS: Appearance Urine Clear (Clear); Bacteria Urine Automated Negative (Negative); Bilirubin Urine Negative (Negative); Blood Urine Trace (Negative); Color Urine Dark Yellow; Epithelial Cell Urine Auto >30 /lpf (0-5); Glucose Urine UA Negative (Negative); Ketones Urine 2+ (Negative); Leukocyte Esterase Urine Negative (Negative); Nitrite Urine Negative (Negative); Protein Urine 2+ (Negative); RBC Urine Automated 0-4 /hpf (0-4); Specific Gravity Urine 1.026 (1.000-1.030); Urobilinogen Urine Negative (Negative); pH Urine 5.5 (4.5-7.5)
[2021-04-10 06:06] LABS: Partial Thromboplastin Time 26.7 Seconds (21.0-31.0); Prothrombin Time 10.1 Seconds (9.0-12.0)
[2021-04-10] MEDS ORDERED: PIPERACILL/TAZOBAC CONSULT ACTIVE PRN (06:33)
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
[2021-04-10] MEDS ORDERED: FAMOTIDINE 20MG/5ML IV PUSH IV ONE (07:09)
--- NOTE | 2021-04-10 07:14 | CT Scan Report ---
CT head/brain wo con CLINICAL HISTORY: 65 years-old Female with AMS, COVID. Acutely altered mental status. COVID Positive . TECHNIQUE: Multiple axial CT images of the head were obtained without contrast. A dose lowering tech nique was utilized adhering to the principles of ALARA. CT DOSE: 1228.53 mGy.cm COMPARISON: None. FINDINGS: No acute intracranial hemorrhage, midline shift, intracranial mass, hydrocephalus, territorial ischem ia or abnormal extra-axial collection. CSF attenuating left retrocerebellar structure redemonstrated, possibly a prominent cisterna magna versus arachnoid cyst. Encephalomalacia related to chronic infar cts of the right frontal and parietal lobes. Age-related involutional changes. White matter hypodensi ties suggestive of chronic microvascular ischemic disease. Unchanged subcentimeter hypodense focus wi thin the right basal ganglia distribution on image 13 series 4. The calvarium is intact. Prior bilateral lens repair. The paranasal sinuses, mastoid air cells, and m iddle ear cavities are clear. IMPRESSION: Chronic findings as above without acute intracranial abnormality. ACT 112: Negative or not required by law. The above report was generated using voice recognition software. It may contain grammatical, syntax o r spelling errors. Electronically signed by: Feliz Hodge M.D. 04/10/2021 7:13 AM
--- NOTE | 2021-04-10 07:24 | XRay Report ---
XR chest 1V portable CLINICAL HISTORY: weakness COMPARISON STUDY: Chest radiograph June 10, 2020. FINDINGS: Lung mediastinal wires are noted. There is mild elevation the right hemidiaphragm. No pneum othorax or pleural effusion is noted. Moderate bilateral airspace opacities are present. IMPRESSION: Bilateral airspace opacities suggestive of viral pneumonia. Radiographic follow-up to en sure resolution is recommended. ACT 112: Negative or not required by law. Electronically signed by: Eliu Cavazos M.D. 04/10/2021 7:23 AM
[2021-04-10] MEDS ORDERED: PIPERACILLIN/TAZOBACTAM 4.5 GM/120 ML BAG IV ONE (07:30)
--- NOTE | 2021-04-10 10:27 | Electrocardiogram Report ---
Test Reason : Blood Pressure : / mmHG Vent. Rate : 050 BPM Atrial Rate : 050 BPM P-R Int : 130 ms QRS Dur : 094 ms QT Int : 420 ms P-R-T Axes : 038 014 048 degrees QTc Int : 382 ms Sinus bradycardia Otherwise normal ECG When compared with ECG of 01-AUG-2020 12:00, T wave amplitude has increased in Anterior leads Confirmed by Jeferson Fuller ([id number]) on 04/10/2021 10:27:14 AM Referred By: REFERRED SELF Confirmed By:Jeferson Fuller
[2021-04-10] MEDS: PANTOprazole 40 MG TAB PO SCH (11:57)
[2021-04-10] MEDS: CLOPIDOGREL BISULFATE 75 MG TAB PO SCH (11:57)
[2021-04-10] MEDS: COLCHICINE 0.6 MG TAB PO SCH ×2 (11:57→20:13)
[2021-04-10] MEDS: dexAMETHasone 6 MG in SYRINGE 0 ML IV SCH (11:57)
--- NOTE | 2021-04-10 13:52 | Magnetic Resonance Report ---
MR brain wo con CLINICAL HISTORY: confusion. COVID-19. Recent falls and trauma to the head. COMPARISON STUDY: 12/22/[address] from 04/10/2021 TECHNIQUE: Multiplanar multisequence images of the Brain were performed without IV contrast. Diffusi on weighted imaging and ADC mapping was also performed. FINDINGS: This is a limited examination as patient refused to complete the entire study. Extra-axial space: There is no evidence for a subdural hematoma, There are no extra-axial fluid frank ections. Ventricles and cisterns: The ventricles are mildly dilated bilaterally. There is no evidence for mid line shift or mass effect. Parenchyma: There is no evidence for an acute hemorrhage or infarct. No acute diffusion abnormalities are noted on diffusion weighted imaging or ADC mapping. There is normal alamo-white differentiation. There is bright signal seen on FLAIR weighted sequences within the centrum semiovale and periventric ular white matter characteristic of remote small vessel disease. There is mild cerebral cortical atro phy present. Encephalomalacia from old right frontoparietal infarct is again seen. The midline struc tures are unremarkable. The posterior fossa structures appear normal. There is no evidence for mass l esion. Osseous structures: The paranasal sinuses are well aerated. The mastoid air cells are well aerated. Soft tissues: No focal soft tissue abnormalities are identified. IMPRESSION: The study is limited as the patient refused to complete the entire study. No acute intrac ranial abnormalities. Cerebral cortical atrophy, remote small vessel disease and old right frontopari etal infarct are again seen. ACT 112: Negative or not required by law. Electronically signed by: Yayo Coronel M.D. 04/10/2021 1:50 PM
[2021-04-10] MEDS: OXYBUTYNIN CHLORIDE XL 5 MG TABCR PO SCH (16:04)
[2021-04-10] MEDS: ASPIRIN 325 MG ECTAB PO SCH ×2 (16:04→20:12)
[2021-04-10] MEDS: PIPERACILLIN/TAZOBACTAM 3.375 GM in DEXTROSE 5% 100 ML IV SCH (16:04)
[2021-04-10] MEDS ORDERED: BACLOFEN 10 MG TAB PO PRN (18:16)
[2021-04-10] MEDS ORDERED: POLYETHYLENE (MIRALAX) 17 GM PACK PO PRN (18:16)
[2021-04-10] MEDS ORDERED: traZODone HCL 100 MG TAB PO PRN (18:16)
--- NOTE | 2021-04-10 18:29 | History & Physical Bridge Note ---
Date of Service April 10, 2021 History & Physical Bridge Note I have examined the patient, reviewed the History & Physical and in the interval since the performance of the History & Physical I have noted the following changes of clinical significance: Had improvement in mentation throughout the day.Reports cough and diarrhea, no SOB,no CP,no abd pain.Feels cold and tired. visited through the window today as per RN and she was able to walk to the window and talk to him through the glass. SHe feels hungry trop mild increase but no chest pain -started diet with easy to chew -has had symptoms for over a week so no Remdesevir indicated -continue abx for asp PNA restart home morphine but make prn rather than scheduled, restart home trazodone but only prn insomnia,restart home xanax prn -awaiting ECHO, continue colchicine and ASA for now in case oy myopericarditis, trend troponin -follow on tele-sinus fauzia which is usual for her -add on Lovenox for DVT proph
[2021-04-10] MEDS: ACETAMINOPHEN 325 MG TAB PO PRN (20:11)
[2021-04-10] MEDS: PREGABALIN 150 MG CAP PO SCH (20:12)
[2021-04-10] MEDS: MoRPHine SULFATE IR 15 MG TAB (IMMEDIATE RELEASE) PO PRN (20:24)
[2021-04-10] MEDS: DULoxetine HCL 30 MG CAP PO SCH (20:25)
[2021-04-10] MEDS: FOLIC ACID 1 MG TAB PO SCH (20:25)
[2021-04-10] MEDS: ENOXAPARIN INJ 40 MG/0.4 ML SYR SQ SCH (20:26)
[2021-04-10] MEDS: FAMOTIDINE 20 MG in SYRINGE 3 ML IV SCH (20:26)
[2021-04-11] MEDS: ALBUTEROL HFA 8 GM INHALER INH SCH ×4 (00:20→14:08)
[2021-04-11] MEDS: PIPERACILLIN/TAZOBACTAM 3.375 GM in DEXTROSE 5% 100 ML IV SCH ×3 (00:32→16:47)
[2021-04-11 02:39] LABS: Mean Corpuscular Hgb Conc 34.7 g/dL (32-36); Mean Platelet Volume 9.8 fL (7.4-10.4); Platelet Count 214 K/uL (130-400)
[2021-04-11 03:10] LABS: Albumin Globulin Ratio 0.7 (0.9-2); Albumin Level 2.5 gm/dl (3.4-5.0); BUN Creatinine Ratio 28.1 (10-20); Bilirubin,Total 0.3 mg/dl (0.2-1); Calcium 8.2 mg/dl (8.5-10.1); Creatinine Clr Calc Pharmacy 78.4 ml/min; Est GFR (African American) 99.5 ml/min; Est GFR (Non-African American) 85.8 ml/min; Globulin 3.5 gm/dl (2.5-4.0)
[2021-04-11 03:28] LABS: Echinocytes 1+; Giant Platelets 1+; Hematocrit (blood only) 34.3 % (37-47); Hemoglobin 11.9 g/dL (12.0-16.0); Immature Granulocytes # (auto) 0.02 K/uL (0.00-0.02); Immature Granulocytes % (auto) 0.7 %; Lymphocytes # (auto) 0.81 K/uL (1.2-3.4); Lymphocytes % (auto) 27.8 %; Mean Corpuscular Hemoglobin 32.4 pg (25-34); Mean Corpuscular Volume 93.5 fL (80-100); Monocytes # (auto) 0.04 K/uL (0.11-0.59); Monocytes % (auto) 1.4 %; Neutrophils # (auto) 2.04 K/uL (1.4-6.5); Neutrophils % (auto) 70.1 %; Nucleated RBC # (auto) 0.31 K/uL (0-0); Nucleated RBC % (auto) 10.6 %; RDW Coefficient of Variation 15.1 % (11.5-14.5); Red Blood Count 3.67 M/uL (4.2-5.4); White Blood Count 2.91 K/uL (4.8-10.8)
[2021-04-11] MEDS: ENOXAPARIN INJ 40 MG/0.4 ML SYR SQ SCH ×2 (06:29→18:18)
[2021-04-11] MEDS: FAMOTIDINE 20 MG in SYRINGE 3 ML IV SCH ×2 (06:30→18:22)
[2021-04-11] MEDS: ASPIRIN 325 MG ECTAB PO SCH (08:05)
[2021-04-11] MEDS: COLCHICINE 0.6 MG TAB PO SCH (08:06)
[2021-04-11] MEDS: OXYBUTYNIN CHLORIDE XL 5 MG TABCR PO SCH (08:06)
[2021-04-11] MEDS: CLOPIDOGREL BISULFATE 75 MG TAB PO SCH (08:06)
[2021-04-11] MEDS: PANTOprazole 40 MG TAB PO SCH (08:06)
[2021-04-11] MEDS: POTASSIUM CHLORIDE CRTAB 20 MEQ TABCR PO SCH ×2 (10:27→20:13)
[2021-04-11] MEDS: dexAMETHasone 6 MG in SYRINGE 0 ML IV SCH (10:28)
--- NOTE | 2021-04-11 10:44 | Electrocardiogram Report ---
Test Reason : Blood Pressure : / mmHG Vent. Rate : 046 BPM Atrial Rate : 046 BPM P-R Int : 140 ms QRS Dur : 106 ms QT Int : 482 ms P-R-T Axes : 039 014 050 degrees QTc Int : 421 ms Sinus bradycardia Otherwise normal ECG When compared with ECG of 10-APR-2021 02:15, No significant change was found Confirmed by Jeferson Fuller ([id number]) on 04/11/2021 10:44:39 AM Referred By: REFERRED SELF Confirmed By:Jeferson Fuller
--- NOTE | 2021-04-11 15:28 | Hospitalist Progress Note ---
Date of Service April 11, 2021 Assessment & Plan (1) Aspiration pneumonia: Plan: Aspiration pneumonia/pneumonia due to COVID-19 virus/hypoxia reports that she has had difficulty controlling secretions recently. Looks like aspiration pneumonia right middle and lower lobes Continue Zosyn 4.5 g IV every 8 hours Oxygen titration for pulse ox 94-95% (2) Pneumonia due to COVID-19 virus: Plan: Dexamethasone 6 mg IV every morning symptoms ongoing for ove a week prior to admission no Remdesevir indicated not requiring O2 but POx low 90s supportive care Zofran for nausea (3) Acute metabolic encephalopathy: Plan: CT of head without contrast negative for acute event Likely secondary to COVID-19 infection, adrenal insufficiency Patient is on several medications that may cause alteration in mentation, and these were initially held Now with great improvement in mentation on decadron MRI brain neg for CVA (4) Hypoxia: Plan: See above (5) History of CVA (cerebrovascular accident): Plan: Continue aspirin and clopidogrel no acute CVA here (6) GERD (gastroesophageal reflux disease): Plan: change to po pepcid continue PPI (7) Adrenal insufficiency: Plan: Hold oral hydrocortisone Will be on dexamethasone IV for COVID PNA as crystal (8) Rheumatoid arthritis: Plan: Rheumatoid arthritis/back pain/fibromyalgia- restarted home baclofen, duloxetine, morphine, pregabalin and trazodone but made trazodone and morphine prn On methotrexate in the outpatient setting and folic acid-hold MTX while acutely ill (9) Back pain: Plan: See above (10) Fibromyalgia: Plan: See above (11) Elevated troponin: Plan: initially suspected to have myopericarditis but never had chest pain, no significant ECG hcanges ECHO still not performed trop trended back down and only mildly elevated likely myocardial demand ischemia from COVID-19 infection (12) Nausea: Plan: 2/2 COVID -continue Pepcid, ZOfran and PPI Plan: DVT Proph-Lovenox Dispo-continued stay on tele Admission and Anticipated Discharge Date Admission Date: April 10, 2021 Subjective Feeling nauseated, stomach so empty but feels she needs to eat to help her feel better. No abd pain. Had some loose stools today. No chest pain, no SOB,not needing O2 Tele with SB in the 50s Review of Systems Review of Systems: All systems reviewed & are unremarkable except as noted in HPI & below Physical Exam Constitutional: WD/WN, vitals as above Eyes: PERRL, conjunctivae normal, anicteric sclerae ENMT: external ear and nose normal, oropharynx normal Neck: trachea midline, no thyromegaly Respiratory: normal respiratory effort, lungs clear to auscultation Cardiovascular: RRR, no murmur, no edema Chest (Breasts): Chest: normal inspection of chest Gastrointestinal (Abdomen): normal bowel sounds, soft, nontender, no hepatosplenomegaly Musculoskeletal: Extremities: extremities normal to inspection; no cyanosis and no clubbing Skin: no rashes, warm and dry Neurologic: moves all extremities and awake; no focal motor deficits Psychiatric: A+Ox3, euthymic affect Lymphatic: no lymphedema Results & Data Results & Data ([facility]) Vital Signs (Past 12 Hours) Vital Signs Temp Pulse Pulse Resp BP Pulse Ox 04/11/21 14:10 51 L 16 94 04/11/21 11:50 36.8 C 64 20 144/76 H 94 04/11/21 07:42 50 L 18 92 04/11/21 06:45 36.6 C 70 20 98/56 L 96 04/11/21 05:00 54 L 04/11/21 04:00 36.6 C 50 L 14 123/74 95 Laboratory Results 04/11/21 04/11/21 04/11/21 Range/Units 02:32 02:32 02:32 WBC 2.91 L (4.8-10.8) K/uL RBC 3.67 L (4.2-5.4) M/uL Hgb 11.9 L (12.0-16.0) g/dL Hct 34.3 L (37-47) % MCV 93.5 (80-100) fL MCH 32.4 (25-34) pg MCHC 34.7 (32-36) g/dL RDW Std Deviation 51.0 H (36.4-46.3) fL RDW Coeff of [place] 15.1 H (11.5-14.5) % Plt Count 214 (130-400) K/uL MPV 9.8 (7.4-10.4) fL Immature Gran % (Auto) 0.7 % Neut % (Auto) 70.1 % Lymph % (Auto) 27.8 % Pacific % (Auto) 1.4 % Eos % (Auto) 0.0 % Baso % (Auto) 0.0 % Neut # (Auto) 2.04 (1.4-6.5) K/uL Lymph # (Auto) 0.81 L (1.2-3.4) K/uL Pacific # (Auto) 0.04 L (0.11-0.59) K/uL Eos # (Auto) 0.00 (0-0.5) K/uL Baso # (Auto) 0.00 (0-0.2) K/uL Immature Gran # (Auto) 0.02 (0.00-0.02) K/uL Absolute Nucleated RBC 0.31 H (0-0) K/uL Nucleated RBC % (auto) 10.6 % Giant Platelets 1+ Echinocytes 1+ Sodium 139 (136-145) mmol/L Potassium 3.0 L D (3.5-5.1) mmol/L Chloride 109 H (98-107) mmol/L Carbon Dioxide 20 L (21-32) mmol/L Anion Gap 10.0 (3-11) BUN 20 H (7-18) mg/dl Creatinine 0.73 (0.6-1.2) mg/dl Est Cr Clr Drug Dosing 78.4 ml/min Est GFR ( Amer) 99.5 ml/min Est GFR (Non-Af Amer) 85.8 ml/min BUN/Creatinine Ratio 28.1 H (10-20) Glucose 114 H (70-99) mg/dl Calcium 8.2 L (8.5-10.1) mg/dl Total Bilirubin 0.3 (0.2-1) mg/dl AST 50 H (15-37) U/L ALT 44 (12-78) Alkaline Phosphatase 58 (45-117) U/L Troponin I 0.273 H* (0-0.045) ng/ml Total Protein 6.0 L (6.4-8.2) gm/dl Albumin 2.5 L (3.4-5.0) gm/dl Globulin 3.5 (2.5-4.0) gm/dl Albumin/Globulin Ratio 0.7 L (0.9-2) 12/24/21 Range/Units 19:02 WBC (4.8-10.8) K/uL RBC (4.2-5.4) M/uL Hgb (12.0-16.0) g/dL Hct (37-47) % MCV (80-100) fL MCH (25-34) pg MCHC (32-36) g/dL RDW Std Deviation (36.4-46.3) fL RDW Coeff of [place] (11.5-14.5) % Plt Count (130-400) K/uL MPV (7.4-10.4) fL Immature Gran % (Auto) % Neut % (Auto) % Lymph % (Auto) % Pacific % (Auto) % Eos % (Auto) % Baso % (Auto) % Neut # (Auto) (1.4-6.5) K/uL Lymph # (Auto) (1.2-3.4) K/uL Pacific # (Auto) (0.11-0.59) K/uL Eos # (Auto) (0-0.5) K/uL Baso # (Auto) (0-0.2) K/uL Immature Gran # (Auto) (0.00-0.02) K/uL Absolute Nucleated RBC (0-0) K/uL Nucleated RBC % (auto) % Giant Platelets Echinocytes Sodium (136-145) mmol/L Potassium (3.5-5.1) mmol/L Chloride (98-107) mmol/L Carbon Dioxide (21-32) mmol/L Anion Gap (3-11) BUN (7-18) mg/dl Creatinine (0.6-1.2) mg/dl Est Cr Clr Drug Dosing ml/min Est GFR ( Amer) ml/min Est GFR (Non-Af Amer) ml/min BUN/Creatinine Ratio (10-20) Glucose (70-99) mg/dl Calcium (8.5-10.1) mg/dl Total Bilirubin (0.2-1) mg/dl AST (15-37) U/L ALT (12-78) Alkaline Phosphatase (45-117) U/L Troponin I 0.341 H* (0-0.045) ng/ml Total Protein (6.4-8.2) gm/dl Albumin (3.4-5.0) gm/dl Globulin (2.5-4.0) gm/dl Albumin/Globulin Ratio (0.9-2) PG Care Time/CCT Total # of Minutes Spent Total Time Spent with Patient: Total time spent is greater than 50% in coordination of care (as documented) at patient's floor/unit and/or counseling patient: Coding Level of Care Code 30509 Subseq Hosp Care Lvl 3 Diagnoses Aspiration pneumonia J69.0 Pneumonia due to COVID-19 virus U07.1; J12.82 Hypoxia R09.02 History of CVA (cerebrovascular accident) Z86.73 GERD (gastroesophageal reflux disease) K21.9 Adrenal insufficiency E27.40 Rheumatoid arthritis M06.9 Back pain M54.9 Fibromyalgia M79.7 Elevated troponin R77.8 Nausea R11.0 Acute metabolic encephalopathy G93.41
[2021-04-11] MEDS ORDERED: ALBUTEROL HFA 8 GM INHALER INH PRN (15:31)
[2021-04-11] MEDS: ONDANSETRON INJ 2 MG/ML 2 ML VIAL IV PRN (15:31)
--- NOTE | 2021-04-11 18:28 | Emergency Department Note ---
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 40 mg Documented by: [id number] Admin: 04/11/21 18:18 Dose: 40 mg Documented by: [id number] Admin: 04/11/21 06:29 Dose: 40 mg Documented by: [id number] Admin: 04/10/21 20:26 Dose: 40 mg Documented by: [id number] Enoxaparin Sodium (Enoxaparin Inj 40 Mg/0.4 Ml Syr) 40 mg SQ 1030 ONE Stop: 04/15/21 10:31 Last Admin: 04/15/21 11:25 Dose: 40 mg Documented by: [id number] Famotidine (Famotidine 20mg/5ml Iv Push) Confirm Administered Dose 20 mg IV . STK-MED ONE Stop: 04/10/21 07:10 Last Admin: 04/10/21 07:37 Dose: 20 mg Documented by: [id number] Furosemide (Furosemide 40 Mg/4 Ml Vial) 40 mg IV ONE ONE Stop: 04/14/21 08:32 Last Admin: 04/14/21 09:15 Dose: 40 mg Documented by: [id number] Furosemide (Furosemide Inj 20 Mg/2 Ml Vial) 20 mg IV DAILY DHARMESH Stop: 05/15/21 08:59 Last Admin: 04/16/21 08:20 Dose: 20 mg Documented by: [id number] Admin: 04/15/21 07:41 Dose: 20 mg Documented by: [id number] Furosemide (Furosemide Inj 20 Mg/2 Ml Vial) 20 mg IV NOW ONE Stop: 04/16/21 09:31 Last Admin: 04/16/21 10:04 Dose: 20 mg Documented by: [id number] Heparin Sodium (Porcine) (Heparin Sod (Porcine) 1000 Unit/Ml) 1 units IV NOW ONE Stop: 04/10/21 04:42 Last Admin: 04/10/21 05:53 Dose: Not Given Documented by: [id number] Heparin Sodium/Dextrose (Heparin Iv Adult Wt-Based Low-Dose With Bolus Protocol) 1 ea N/A NOW STA; Protocol Stop: 04/10/21 04:27 Last Admin: 04/10/21 05:53 Dose: Not Given Documented by: [id number] Sodium Chloride (Nss 1000ml) 1,000 mls @ 125 mls/hr IV .Q8H DHARMESH Stop: 04/10/21 10:29 Last Infusion: 04/10/21 11:38 Dose: 0 mls/hr Documented by: [id number] Admin: 04/10/21 02:30 Dose: 125 mls/hr Documented by: [id number] Heparin Sodium/Dextrose (Heparin Sodium/Dextrose) 25,000 units in 500 mls @ 0.02 mls/hr IV .Q24H DHARMESH; Protocol Stop: 05/10/21 04:44 Last Admin: 04/10/21 05:53 Dose: Not Given Documented by: [id number] Azithromycin 500 mg/ Dextrose 255 mls @ 127.5 mls/hr IV NOW STA Stop: 04/10/21 06:29 Last Infusion: 04/10/21 10:20 Dose: 0 mls/hr Documented by: [id number] Admin: 04/10/21 08:15 Dose: 127.5 mls/hr Documented by: [id number] Ceftriaxone Sodium (Rocephin) 1,000 mg in 50 mls @ 100 mls/hr IV NOW STA Stop: 04/10/21 04:59 Last Infusion: 04/10/21 06:40 Dose: 0 mls/hr Documented by: [id number] Admin: 04/10/21 06:08 Dose: 100 mls/hr Documented by: [id number] Piperacillin Sod/Tazobactam (Sod 3.375 gm/ Dextrose) 115 mls @ 28.75 mls/hr IV Q8H [facility]; Protocol Stop: 04/17/21 07:59 Last Infusion: 04/12/21 12:40 Dose: 0 mls/hr Documented by: [id number] Admin: 04/12/21 08:33 Dose: 28.8 mls/hr Documented by: [id number] Infusion: 04/12/21 05:49 Dose: 0 mls/hr Documented by: [id number] Admin: 04/12/21 00:56 Dose: 28.8 mls/hr Documented by: [id number] Infusion: 04/11/21 22:07 Dose: 0 mls/hr Documented by: [id number] Admin: 04/11/21 16:47 Dose: 28.8 mls/hr Documented by: [id number] Infusion: 04/11/21 14:22 Dose: 0 mls/hr Documented by: [id number] Admin: 04/11/21 08:10 Dose: 28.8 mls/hr Documented by: [id number] Infusion: 04/11/21 04:45 Dose: 0 mls/hr Documented by: [id number] Admin: 04/11/21 00:32 Dose: 28.8 mls/hr Documented by: [id number] Infusion: 04/10/21 22:03 Dose: 0 mls/hr Documented by: [id number] Admin: 04/10/21 16:04 Dose: 28.8 mls/hr Documented by: [id number] Famotidine 20 mg/ Syringe 5 mls @ 2.5 mls/min IV Q12H DHARMESH Stop: 05/10/21 18:44 Last Admin: 04/12/21 05:48 Dose: 2.5 mls/min Documented by: [id number] Admin: 04/11/21 18:22 Dose: 2.5 mls/min Documented by: [id number] Admin: 04/11/21 06:30 Dose: 2.5 mls/min Documented by: [id number] Admin: 04/10/21 20:26 Dose: 2.5 mls/min Documented by: [id number] Piperacillin Sod/Tazobactam Sod (Zosyn) 4.5 gm in 120 mls @ 240 mls/hr IV NOW ONE; Protocol Stop: 04/10/21 07:59 Last Infusion: 04/10/21 08:15 Dose: 0 mls/hr Documented by: [id number] Admin: 04/10/21 07:38 Dose: 240 mls/hr Documented by: [id number] Ampicillin Sodium/Sulbactam Sodium 3,000 mg/ Sodium Chloride 108 mls @ 216 mls/hr IV Q6H [facility]; Protocol Stop: 04/17/21 15:59 Last Infusion: 04/17/21 12:28 Dose: 0 mls/hr Documented by: [id number] Admin: 04/17/21 11:34 Dose: 216 mls/hr Documented by: [id number] Infusion: 04/17/21 03:35 Dose: 0 mls/hr Documented by: [id number] Admin: 04/17/21 03:15 Dose: 216 mls/hr Documented by: [id number] Infusion: 04/16/21 20:50 Dose: 0 mls/hr Documented by: [id number] Admin: 04/16/21 20:18 Dose: 216 mls/hr Documented by: [id number] Infusion: 04/16/21 17:04 Dose: 0 mls/hr Documented by: [id number] Admin: 04/16/21 16:29 Dose: 216 mls/hr Documented by: [id number] Infusion: 04/16/21 10:36 Dose: 0 mls/hr Documented by: [id number] Admin: 04/16/21 10:05 Dose: 216 mls/hr Documented by: [id number] Infusion: 04/16/21 05:49 Dose: 0 mls/hr Documented by: [id number] Admin: 04/16/21 04:43 Dose: 216 mls/hr Documented by: [id number] Infusion: 04/15/21 22:19 Dose: 0 mls/hr Documented by: [id number] Admin: 04/15/21 21:32 Dose: 216 mls/hr Documented by: [id number] Infusion: 04/15/21 17:01 Dose: 0 mls/hr Documented by: [id number] Admin: 04/15/21 16:26 Dose: 216 mls/hr Documented by: [id number] Infusion: 04/15/21 11:58 Dose: 0 mls/hr Documented by: [id number] Admin: 04/15/21 11:24 Dose: 216 mls/hr Documented by: [id number] Infusion: 04/15/21 05:40 Dose: 0 mls/hr Documented by: [id number] Admin: 04/15/21 04:54 Dose: 216 mls/hr Documented by: [id number] Infusion: 04/14/21 22:11 Dose: 0 mls/hr Documented by: [id number] Admin: 04/14/21 21:27 Dose: 216 mls/hr Documented by: [id number] Infusion: 04/14/21 16:53 Dose: 0 mls/hr Documented by: [id number] Admin: 04/14/21 16:20 Dose: 216 mls/hr Documented by: [id number] Infusion: 04/14/21 10:00 Dose: 0 mls/hr Documented by: [id number] Admin: 04/14/21 09:21 Dose: 216 mls/hr Documented by: [id number] Infusion: 04/14/21 05:21 Dose: 0 mls/hr Documented by: [id number] Admin: 04/14/21 04:18 Dose: 216 mls/hr Documented by: [id number] Infusion: 04/14/21 00:07 Dose: 0 mls/hr Documented by: [id number] Infusion: 04/13/21 23:51 Dose: 216 mls/hr Documented by: [id number] Infusion: 04/13/21 22:45 Dose: 0 mls/hr Documented by: [id number] Admin: 04/13/21 22:26 Dose: 216 mls/hr Documented by: [id number] Infusion: 04/13/21 16:25 Dose: 0 mls/hr Documented by: [id number] Admin: 04/13/21 15:52 Dose: 216 mls/hr Documented by: [id number] Infusion: 04/13/21 09:35 Dose: 0 mls/hr Documented by: [id number] Admin: 04/13/21 09:02 Dose: 216 mls/hr Documented by: [id number] Infusion: 04/13/21 04:40 Dose: 0 mls/hr Documented by: [id number] Admin: 04/13/21 04:06 Dose: 216 mls/hr Documented by: [id number] Infusion: 04/12/21 22:58 Dose: 0 mls/hr Documented by: [id number] Admin: 04/12/21 21:47 Dose: 216 mls/hr Documented by: [id number] Infusion: 04/12/21 17:00 Dose: 0 mls/hr Documented by: [id number] Admin: 04/12/21 16:29 Dose: 216 mls/hr Documented by: [id number] Azithromycin 500 mg/ Dextrose 255 mls @ 127.5 mls/hr IV 1100 ONE Stop: 04/15/21 12:59 Last Infusion: 04/15/21 14:08 Dose: 0 mls/hr Documented by: [id number] Admin: 04/15/21 11:57 Dose: 127.5 mls/hr Documented by: [id number] Ioversol (Optiray 320 125ml) 120 ml IV ONCE ONE Stop: 04/15/21 09:29 Last Admin: 04/15/21 09:29 Dose: 120 ml Documented by: [id number] Ondansetron HCl (Ondansetron Inj 2 Mg/Ml 2 Ml Vial) 4 mg IV Q6H PRN PRN Reason: Nausea Stop: 05/10/21 10:56 Last Admin: 04/14/21 17:25 Dose: 4 mg Documented by: [id number] Admin: 04/11/21 15:31 Dose: 4 mg Documented by: [id number] Ondansetron HCl (Ondansetron Inj 2 Mg/Ml 2 Ml Vial) 4 mg IV Q6H [facility] Stop: 04/15/21 23:29 Last Admin: 04/15/21 16:32 Dose: Not Given Documented by: [id number] Admin: 04/15/21 13:16 Dose: 4 mg Documented by: [id number] Admin: 04/15/21 04:54 Dose: 4 mg Documented by: [id number] Admin: 04/14/21 23:29 Dose: 4 mg Documented by: [id number] Pantoprazole Sodium (Pantoprazole 40 Mg Tab) 40 mg PO QAM [facility]; Protocol Stop: 05/10/21 10:56 Last Admin: 04/15/21 07:40 Dose: 40 mg Documented by: [id number] Admin: 04/14/21 09:16 Dose: 40 mg Documented by: [id number] Admin: 04/13/21 09:01 Dose: 40 mg Documented by: [id number] Admin: 04/12/21 08:35 Dose: 40 mg Documented by: [id number] Admin: 04/11/21 08:06 Dose: 40 mg Documented by: [id number] Admin: 04/10/21 11:57 Dose: 40 mg Documented by: [id number] Potassium Chloride (Potassium Chloride Crtab 20 Meq Tabcr) 40 meq PO BID [facility] Stop: 05/11/21 09:59 Last Admin: 04/13/21 20:37 Dose: 40 meq Documented by: [id number] Admin: 04/13/21 09:00 Dose: 40 meq Documented by: [id number] Admin: 04/12/21 19:39 Dose: 40 meq Documented by: [id number] Admin: 04/12/21 08:33 Dose: 40 meq Documented by: [id number] Admin: 04/11/21 20:13 Dose: 40 meq Documented by: [id number] Admin: 04/11/21 10:27 Dose: 40 meq Documented by: [id number] Potassium Chloride (Potassium Chloride Crtab 20 Meq Tabcr) 20 meq PO 1600 [facility] Stop: 04/15/21 18:00 Last Admin: 04/15/21 16:26 Dose: 20 meq Documented by: [id number] Potassium Chloride (Potassium Chloride Crtab 20 Meq Tabcr) 40 meq PO NOW STA Stop: 04/15/21 08:28 Last Admin: 04/15/21 08:37 Dose: 40 meq Documented by: [id number] Potassium Chloride (Potassium Chloride Crtab 20 Meq Tabcr) 40 meq PO NOW STA Stop: 04/18/21 18:18 Last Admin: 04/18/21 18:41 Dose: 40 meq Documented by: [id number] Imaging Data Radiologist's Impression: Chest X-Ray 04/10/21 02:20 XR chest 1V portable CLINICAL HISTORY: weakness COMPARISON STUDY: Chest radiograph June 10, 2020. FINDINGS: Lung mediastinal wires are noted. There is mild elevation the right hemidiaphragm. No pneumothorax or pleural effusion is noted. Moderate bilateral airspace opacities are present. IMPRESSION: Bilateral airspace opacities suggestive of viral pneumonia. Radiographic follow-up to ensure resolution is recommended. ACT 112: Negative or not required by law. Electronically signed by: Eliu Cavazos M.D. 04/10/2021 7:[address] 04/10/21 02:20 CT head/brain wo con CLINICAL HISTORY: 65 years-old Female with AMS, COVID. Acutely altered mental status. COVID Positive. TECHNIQUE: Multiple axial CT images of the head were obtained without contrast. A dose lowering technique was utilized adhering to the principles of ALARA. CT DOSE: 1228.53 mGy.cm COMPARISON: None. FINDINGS: No acute intracranial hemorrhage, midline shift, intracranial mass, hydrocephalus, territorial ischemia or abnormal extra-axial collection. CSF attenuating left retrocerebellar structure redemonstrated, possibly a prominent cisterna magna versus arachnoid cyst. Encephalomalacia related to chronic infarcts of the right frontal and parietal lobes. Age-related involutional changes. White matter hypodensities suggestive of chronic microvascular ischemic disease. Unchanged subcentimeter hypodense focus within the right basal ganglia distribution on image 13 series 4. The calvarium is intact. Prior bilateral lens repair. The paranasal sinuses, mastoid air cells, and middle ear cavities are clear. IMPRESSION: Chronic findings as above without acute intracranial abnormality. ACT 112: Negative or not required by law. The above report was generated using voice recognition software. It may contain grammatical, syntax or spelling errors. Electronically signed by: Feliz Hodge M.D. 04/10/2021 7:13 AM Blood Pressure Blood Pressure Findings: Normal blood pressure Blood Pressure Disposition: further management by hospitalist Discharge Plan Visit Data Chief Complaint: Illness Stated Complaint: COVID+ TUESDAY - SYMPTOMS WORSENED ED Provider: Aline Barroso Discharge Problem: Acute alteration in mental status, History of CVA (cerebrovascular accident), COVID-19, Chronic narcotic use Patient Disposition: Admitted As Inpatient Discharge Instructions Interventions: ED Discharge Assessment Last Done: 04/10/21 12:24
[2021-04-11] MEDS: ACETAMINOPHEN 325 MG TAB PO PRN (20:12)
[2021-04-11] MEDS: MoRPHine SULFATE IR 15 MG TAB (IMMEDIATE RELEASE) PO PRN (20:12)
[2021-04-11] MEDS: DULoxetine HCL 30 MG CAP PO SCH (20:13)
[2021-04-11] MEDS: FOLIC ACID 1 MG TAB PO SCH (20:13)
[2021-04-11] MEDS: PREGABALIN 150 MG CAP PO SCH (20:13)
[2021-04-12] MEDS: PIPERACILLIN/TAZOBACTAM 3.375 GM in DEXTROSE 5% 100 ML IV SCH ×2 (00:56→08:33)
[2021-04-12] MEDS: FAMOTIDINE 20 MG in SYRINGE 3 ML IV SCH (05:48)
[2021-04-12] MEDS: ENOXAPARIN INJ 40 MG/0.4 ML SYR SQ SCH ×2 (05:48→17:48)
[2021-04-12] MEDS: ACETAMINOPHEN 325 MG TAB PO PRN ×2 (06:11→16:59)
[2021-04-12] MEDS: dexAMETHasone 6 MG in SYRINGE 0 ML IV SCH (08:33)
[2021-04-12] MEDS: POTASSIUM CHLORIDE CRTAB 20 MEQ TABCR PO SCH ×2 (08:33→19:39)
[2021-04-12] MEDS: ASPIRIN 81 MG ECTAB PO SCH (08:34)
[2021-04-12] MEDS: CLOPIDOGREL BISULFATE 75 MG TAB PO SCH (08:34)
[2021-04-12] MEDS: OXYBUTYNIN CHLORIDE XL 5 MG TABCR PO SCH (08:34)
[2021-04-12] MEDS: PANTOprazole 40 MG TAB PO SCH (08:35)
[2021-04-12 08:56] LABS: Platelet Count 171 K/uL (130-400)
[2021-04-12 09:18] LABS: Albumin Level 2.4 gm/dl (3.4-5.0); BUN Creatinine Ratio 20.7 (10-20); Calcium 8.5 mg/dl (8.5-10.1); Creatinine Clr Calc Pharmacy 60.4 ml/min; Est GFR (African American) 72.3 ml/min; Est GFR (Non-African American) 62.4 ml/min; Potassium 3.3 mmol/L (3.5-5.1)
[2021-04-12 09:20] LABS: Albumin Globulin Ratio 0.7 (0.9-2); Bilirubin,Total 0.3 mg/dl (0.2-1); Globulin 3.4 gm/dl (2.5-4.0); Total Protein 5.8 gm/dl (6.4-8.2)
[2021-04-12 09:29] LABS: Hemoglobin 11.9 g/dL (12.0-16.0); Mean Corpuscular Hemoglobin 32.1 pg (25-34); Mean Corpuscular Volume 94.3 fL (80-100); Nucleated RBC # (auto) 0.49 K/uL (0-0); Nucleated RBC % (auto) 11.6 %; RDW Coefficient of Variation 15.4 % (11.5-14.5); RDW Standard Deviation 52.7 fL (36.4-46.3); Red Blood Count 3.71 M/uL (4.2-5.4); White Blood Count 4.25 K/uL (4.8-10.8)
[2021-04-12 09:42] LABS: ALC (manual) 3.21 K/uL (1.2-3.4); Acanthocytes 1+; Eosinophils # (manual) 0.04 K/uL (0-0.5); Eosinophils % (manual) 0.9 %; Giant Platelets 1+; Lymphocytes # (manual) 3.21 K/uL (1.2-3.4); Lymphocytes % (manual) 75.6 %; Neutrophils % (manual) 23.5 %
--- NOTE | 2021-04-12 11:57 | Electrocardiogram Report ---
Test Reason : Blood Pressure : / mmHG Vent. Rate : 048 BPM Atrial Rate : 048 BPM P-R Int : 138 ms QRS Dur : 096 ms QT Int : 422 ms P-R-T Axes : 018 -02 042 degrees QTc Int : 376 ms Sinus bradycardia Otherwise normal ECG When compared with ECG of 11-APR-2021 06:24, No significant change was found Confirmed by Jeferson Fuller ([id number]) on 04/12/2021 11:57:46 AM Referred By: REFERRED SELF Confirmed By:Jeferson Fuller
[2021-04-12] MEDS: AMPICILLIN/SULBACTAM SOD 3,000 MG in 0.9 % SODIUM CHLORIDE 100 ML IV SCH ×2 (16:29→21:47)
--- NOTE | 2021-04-12 17:07 | Hospitalist Progress Note ---
Date of Service April 12, 2021 Assessment & Plan (1) Aspiration pneumonia: Plan: Aspiration pneumonia/pneumonia due to COVID-19 virus/hypoxia reports that she has had difficulty controlling secretions recently. Looks like aspiration pneumonia right middle and lower lobes dc Zosyn and convert to Unasyn as no real risk factors for Gram neg PNA Oxygen titration for pulse ox 94-95%-none needed now (2) Pneumonia due to COVID-19 virus: Plan: continue Dexamethasone 6 mg IV every morning With fever today symptoms ongoing for over a week prior to admission no Remdesevir indicated not requiring O2 but POx low 90s supportive care Zofran for nausea -tylenol prn fever (3) Acute metabolic encephalopathy: Plan: CT of head without contrast negative for acute event Likely secondary to COVID-19 infection, adrenal insufficiency Patient is on several medications that may cause alteration in mentation, and these were initially held Now with great improvement in mentation on decadron but today seems a little more confused with ongoing fever MRI brain neg for CVA (4) Hypoxia: Plan: See above (5) History of CVA (cerebrovascular accident): Plan: Continue aspirin and clopidogrel no acute CVA here (6) GERD (gastroesophageal reflux disease): Plan: continue po pepcid continue PPI (7) Adrenal insufficiency: Plan: Hold oral hydrocortisone continue dexamethasone IV for COVID PNA as above (8) Rheumatoid arthritis: Plan: Rheumatoid arthritis/back pain/fibromyalgia- continue home baclofen, duloxetine, morphine, pregabalin and trazodone but made trazodone and morphine prn On methotrexate in the outpatient setting and folic acid-hold MTX while acutely ill (9) Back pain: Plan: See above (10) Fibromyalgia: Plan: See above (11) Elevated troponin: Plan: initially suspected to have myopericarditis but never had chest pain, no significant ECG changes ECHO still not performed trop trended back down and only mildly elevated likely myocardial demand ischemia from COVID-19 infection (12) Nausea: Plan: 2/2 COVID -continue Pepcid, ZOfran and PPI Plan: DVT Proph-Lovenox Dispo-continued stay on tele, willconsult PT/OT Admission and Anticipated Discharge Date Admission Date: April 10, 2021 Subjective Pt had a fever this AM and having chills now,still with 3 loose stools today.No chest pain,no SOB.Having left ear pain that she said started 2-3 days ago. Pt worried because she hasn't been able to get a hold of her all day and worries he is sick too. She does not have anyone that can check on him and does not want me to call police for a wellness check. Tele with SB rates 50s Review of Systems Review of Systems: All systems reviewed & are unremarkable except as noted in HPI & below Physical Exam Constitutional: WD/WN, vitals as above Eyes: + anicteric sclerae Neck: trachea midline, no thyromegaly Respiratory: normal respiratory effort; no cough Auscultation: + crackles (bilat mid and lower lung [place]); no rhonchi and no wheezes Cardiovascular: Rate/Rhythm: regular rhythm and + bradycardic Heart Sounds: no murmur Extremities: no edema Chest (Breasts): Chest: normal inspection of chest Gastrointestinal (Abdomen): normal bowel sounds, soft, nontender, no hepatosplenomegaly Musculoskeletal: Extremities: extremities normal to inspection; no cyanosis and no clubbing Skin: no rashes, warm and dry Neurologic: moves all extremities and awake; no focal motor deficits Psychiatric: A+Ox3, euthymic affect Lymphatic: no lymphedema Results & Data Results & Data ([facility]) Vital Signs (Past 12 Hours) Vital Signs Temp Pulse Pulse Resp BP BP Pulse Ox 04/12/21 16:35 36.8 C 54 L 18 184/93 H 94 04/12/21 11:49 37.5 C 53 L 20 132/73 90 04/12/21 08:12 37.0 C 52 L 18 115/72 91 04/12/21 07:00 49 L 04/12/21 06:05 38 C H 50 L 14 183/93 H 181/91 H 95 Laboratory Results 04/12/21 04/12/21 Range/Units 08:19 08:19 WBC 4.25 L (4.8-10.8) K/uL RBC 3.71 L (4.2-5.4) M/uL Hgb 11.9 L (12.0-16.0) g/dL Hct 35.0 L (37-47) % MCV 94.3 (80-100) fL MCH 32.1 (25-34) pg MCHC 34.0 (32-36) g/dL RDW Std Deviation 52.7 H (36.4-46.3) fL RDW Coeff of Verónica 15.4 H (11.5-14.5) % Plt Count 171 (130-400) K/uL MPV 10.0 (7.4-10.4) fL Absolute Nucleated RBC 0.49 H (0-0) K/uL Nucleated RBC % (auto) 11.6 % Neutrophils % (Manual) 23.5 % Lymphocytes % (Manual) 75.6 % Eosinophils % (Manual) 0.9 % Neutrophils # (Manual) 1.00 L (1.4-6.5) K/uL Total Absolute Neuts 1.00 L (1.4-6.5) K/uL Lymphocytes # (Manual) 3.21 (1.2-3.4) K/uL Total Abs Lymphocytes 3.21 (1.2-3.4) K/uL Eosinophils # (Manual) 0.04 (0-0.5) K/uL Giant Platelets 1+ Acanthocytes (Spur) 1+ Sodium 141 (136-145) mmol/L Potassium 3.3 L (3.5-5.1) mmol/L Chloride 111 H (98-107) mmol/L Carbon Dioxide 24 (21-32) mmol/L Anion Gap 6.0 (3-11) BUN 20 H (7-18) mg/dl Creatinine 0.95 (0.6-1.2) mg/dl Est Cr Clr Drug Dosing 60.4 ml/min Est GFR ( Amer) 72.3 ml/min Est GFR (Non-Af Amer) 62.4 ml/min BUN/Creatinine Ratio 20.7 H (10-20) Glucose 84 (70-99) mg/dl Calcium 8.5 (8.5-10.1) mg/dl Total Bilirubin 0.3 (0.2-1) mg/dl AST 39 H (15-37) U/L ALT 37 (12-78) Alkaline Phosphatase 54 (45-117) U/L Total Protein 5.8 L (6.4-8.2) gm/dl Albumin 2.4 L (3.4-5.0) gm/dl Globulin 3.4 (2.5-4.0) gm/dl Albumin/Globulin Ratio 0.7 L (0.9-2) PG Care Time/CCT Total # of Minutes Spent Total Time Spent with Patient: Total time spent is greater than 50% in coordination of care (as documented) at patient's floor/unit and/or counseling patient: Coding Level of Care Code 64820 Subseq Hosp Care Lvl 3 Diagnoses Aspiration pneumonia J69.0 Pneumonia due to COVID-19 virus U07.1; J12.82 Acute metabolic encephalopathy G93.41 Hypoxia R09.02 History of CVA (cerebrovascular accident) Z86.73 GERD (gastroesophageal reflux disease) K21.9 Adrenal insufficiency E27.40 Rheumatoid arthritis M06.9 Back pain M54.9 Fibromyalgia M79.7 Elevated troponin R77.8 Nausea R11.0
[2021-04-12] MEDS: LOPERAMIDE HCL 2 MG CAP PO PRN (17:48)
[2021-04-12] MEDS: MoRPHine SULFATE IR 15 MG TAB (IMMEDIATE RELEASE) PO PRN (19:35)
[2021-04-12] MEDS: FAMOTIDINE 20 MG TAB PO SCH (19:39)
[2021-04-12] MEDS: DULoxetine HCL 30 MG CAP PO SCH (19:39)
[2021-04-12] MEDS: FOLIC ACID 1 MG TAB PO SCH (19:40)
[2021-04-12] MEDS: PREGABALIN 150 MG CAP PO SCH (19:50)
[2021-04-13] MEDS: AMPICILLIN/SULBACTAM SOD 3,000 MG in 0.9 % SODIUM CHLORIDE 100 ML IV SCH ×4 (04:06→22:26)
[2021-04-13] MEDS: ENOXAPARIN INJ 40 MG/0.4 ML SYR SQ SCH ×2 (05:30→17:59)
[2021-04-13 06:18] LABS: Mean Corpuscular Hgb Conc 34.1 g/dL (32-36); Mean Platelet Volume 10.4 fL (7.4-10.4); Platelet Count 146 K/uL (130-400)
[2021-04-13 06:52] LABS: Albumin Level 2.4 gm/dl (3.4-5.0); BUN Creatinine Ratio 19.4 (10-20); Calcium 8.3 mg/dl (8.5-10.1); Creatinine Clr Calc Pharmacy 66.8 ml/min; Est GFR (African American) 80.5 ml/min; Est GFR (Non-African American) 69.4 ml/min; Magnesium 2.1 mg/dl (1.8-2.4); Potassium 3.6 mmol/L (3.5-5.1)
[2021-04-13 06:54] LABS: Albumin Globulin Ratio 0.6 (0.9-2); Bilirubin,Total 0.4 mg/dl (0.2-1); Total Protein 6.4 gm/dl (6.4-8.2)
[2021-04-13 07:26] LABS: Basophils # (auto) 0.03 K/uL (0-0.2); Basophils % (auto) 1.1 %; Echinocytes 1+; Hematocrit (blood only) 38.4 % (37-47); Hemoglobin 13.1 g/dL (12.0-16.0); Howell-Jolly Bodies 1+; Immature Granulocytes # (auto) 0.01 K/uL (0.00-0.02); Immature Granulocytes % (auto) 0.4 %; Lymphocytes # (auto) 1.65 K/uL (1.2-3.4); Lymphocytes % (auto) 61.3 %; Mean Corpuscular Volume 93.9 fL (80-100); Monocytes # (auto) 0.08 K/uL (0.11-0.59); Neutrophils # (auto) 0.92 K/uL (1.4-6.5); Neutrophils % (auto) 34.2 %; Nucleated RBC % (auto) 18.7 %; RDW Coefficient of Variation 15.4 % (11.5-14.5); RDW Standard Deviation 52.2 fL (36.4-46.3); Red Blood Count 4.09 M/uL (4.2-5.4); Target Cells 1+; White Blood Count 2.69 K/uL (4.8-10.8)
[2021-04-13] MEDS: POTASSIUM CHLORIDE CRTAB 20 MEQ TABCR PO SCH ×2 (09:00→20:37)
[2021-04-13] MEDS: LOPERAMIDE HCL 2 MG CAP PO PRN (09:01)
[2021-04-13] MEDS: ASPIRIN 81 MG ECTAB PO SCH (09:01)
[2021-04-13] MEDS: dexAMETHasone 6 MG in SYRINGE 0 ML IV SCH (09:01)
[2021-04-13] MEDS: OXYBUTYNIN CHLORIDE XL 5 MG TABCR PO SCH (09:01)
[2021-04-13] MEDS: FAMOTIDINE 20 MG TAB PO SCH ×2 (09:01→20:38)
[2021-04-13] MEDS: PANTOprazole 40 MG TAB PO SCH (09:01)
[2021-04-13] MEDS: CLOPIDOGREL BISULFATE 75 MG TAB PO SCH (09:02)
--- NOTE | 2021-04-13 09:47 | XCELERA ---
[id number]
[2021-04-13] MEDS: MoRPHine SULFATE IR 15 MG TAB (IMMEDIATE RELEASE) PO PRN ×2 (11:22→20:36)
--- NOTE | 2021-04-13 18:13 | Hospitalist Progress Note ---
Date of Service April 13, 2021 Assessment & Plan (1) Pneumonia due to COVID-19 virus: Plan: Presented with acute encephalopathy, and now with ongoing fevers, bilateral infiltrates on chest x-ray, and tested positive for Covid-19 Also with diarrhea, nausea, and generalized malaise symptoms ongoing for over a week prior to admission no Remdesevir indicated Continues with daily low-grade fevers Initially pulse ox was in the low 90s but was not on O2. She is now requiring oxygen as of 04/13 on 4 L nasal cannula to keep pulse ox greater than 88% -Continue Dexamethasone 6 mg IV every morning -Add incentive spirometer and flutter valve -Albuterol HFA as needed -Zofran for nausea -tylenol prn fever -Imodium as needed for diarrhea -Follow CBC, CMP, CRP, procalcitonin in the morning (2) Aspiration pneumonia: Plan: Suspected upon admission reports that she has had difficulty controlling secretions recently. Initially started on Zosyn, but converted to Unasyn as she has no real risk f actors for gram-negative pneumonia Check procalcitonin in the morning Blood cultures with 1 out of 2 sets with likely coagulase-negative Staphylococcus-likely contaminant (3) Acute metabolic encephalopathy: Plan: CT of head without contrast negative for acute event Likely secondary to COVID-19 infection, adrenal insufficiency Patient is on several medications that may cause alteration in mentation, and these were initially held Now with great improvement in mentation on decadron MRI brain neg for CVA (4) Hypoxia: Plan: With worsening oxygenation on 04/13, now requiring 4 L nasal cannula Secondary to Covid-19 pneumonia Treating with Decadron, bronchodilators, incentive spirometry, flutter valve (5) History of CVA (cerebrovascular accident): Plan: Continue aspirin and clopidogrel no acute CVA here on brain MRI (6) Adrenal insufficiency: Plan: Hold oral hydrocortisone from home continue dexamethasone IV for COVID PNA as above and for stress dose steroids (7) Elevated troponin: Plan: initially suspected to have myopericarditis on admission but never had chest pain, no significant ECG changes ECHO without wall motion abnormalities, with moderate aortic insufficiency trop trended back down and only mildly elevated likely myocardial demand ischemia from COVID-19 infection (8) Nausea: Plan: 2/2 COVID-improved on 04/13 -continue Pepcid, ZOfran and PPI (9) GERD (gastroesophageal reflux disease): Plan: continue po pepcid continue PPI (10) Bacteremia: Plan: As above, likely contaminant No need to repeat blood cultures (11) Transaminitis: Plan: Mildly elevated AST, secondary to Covid-19 Follow CMP (12) Rheumatoid arthritis: Plan: Rheumatoid arthritis/back pain/fibromyalgia- continue home baclofen, duloxetine, morphine, pregabalin and trazodone but made trazodone and morphine prn On methotrexate in the outpatient setting and folic acid-hold MTX while acutely ill (13) Back pain: Plan: See above (14) Fibromyalgia: Plan: See above Plan: DVT Proph-Lovenox Dispo-continued stay on tele, PT/OT consults placed Updated her by phone on 04/12-he is also having symptoms of Covid at home but as of 04/12 had not been tested Admission and Anticipated Discharge Date Admission Date: April 10, 2021 Subjective Patient reports feeling better today, appetite is improved and she is eating more. Still spiking some low-grade fevers. Did get very lightheaded with getting up with physical therapy today and became hypoxic and was placed on oxygen. She is now on 2.5 L nasal cannula when I saw her, but her pulse ox would not come above 85%. I turned her up to 4 L in the room to get her pulse ox up to 89%. She is coughing a little bit. Still with a couple loose stools today, no abdominal pains. She seems to be in better spirits today. She was also having her chronic pain and had not received her typical morphine much since admission and she took some of that today. Telemetry with sinus bradycardia normal sinus rhythm with rates in the 50s to 80s. Review of Systems Review of Systems: All systems reviewed & are unremarkable except as noted in HPI & below Physical Exam Constitutional: WD/WN, vitals as above Eyes: + anicteric sclerae Neck: trachea midline, no thyromegaly Respiratory: normal respiratory effort; no cough Auscultation: + crackles (bilat mid and lower lung [place]); no rhonchi and no wheezes Cardiovascular: Rate/Rhythm: regular rhythm and + bradycardic Heart Sounds: no murmur Extremities: no edema Chest (Breasts): Chest: normal inspection of chest Gastrointestinal (Abdomen): normal bowel sounds, soft, nontender, no hepatosplenomegaly Musculoskeletal: Extremities: extremities normal to inspection; no cyanosis a nd no clubbing Skin: no rashes, warm and dry Neurologic: moves all extremities and awake; no focal motor deficits Psychiatric: A+Ox3, euthymic affect Lymphatic: no lymphedema Results & Data Results & Data ([facility]) Vital Signs (Past 12 Hours) Vital Signs Temp Pulse Pulse Pulse Resp BP BP 04/13/21 15:49 37.7 C H 55 L 18 120/77 04/13/21 15:00 56 L 04/13/21 14:30 04/13/21 13:30 04/13/21 11:58 37.5 C 55 L 19 128/77 04/13/21 11:29 56 L 18 04/13/21 11:16 37.3 C 51 L 24 147/86 H 04/13/21 10:13 04/13/21 08:00 37.7 C H 52 L 20 159/84 H 04/13/21 06:16 57 L Pulse Ox Pulse Ox 04/13/21 15:49 92 04/13/21 15:00 04/13/21 14:30 93 04/13/21 13:30 95 04/13/21 11:58 91 04/13/21 11:29 95 04/13/21 11:16 94 04/13/21 10:13 86 L 04/13/21 08:00 91 04/13/21 06:16 Laboratory Results 04/13/21 04/13/21 04/10/21 Range/Units 05:49 05:49 05:15 WBC 2.69 L (4.8-10.8) K/uL RBC 4.09 L (4.2-5.4) M/uL Hgb 13.1 (12.0-16.0) g/dL Hct 38.4 (37-47) % MCV 93.9 (80-100) fL MCH 32.0 (25-34) pg MCHC 34.1 (32-36) g/dL RDW Std Deviation 52.2 H (36.4-46.3) fL RDW Coeff of [place] 15.4 H (11.5-14.5) % Plt Count 146 (130-400) K/uL MPV 10.4 (7.4-10.4) fL Immature Gran % (Auto) 0.4 % Neut % (Auto) 34.2 % Lymph % (Auto) 61.3 % [place] % (Auto) 3.0 % Eos % (Auto) 0.0 % Baso % (Auto) 1.1 % Neut # (Auto) 0.92 L* (1.4-6.5) K/uL Lymph # (Auto) 1.65 (1.2-3.4) K/uL [place] # (Auto) 0.08 L (0.11-0.59) K/uL Eos # (Auto) 0.00 (0-0.5) K/uL Baso # (Auto) 0.03 (0-0.2) K/uL Immature Gran # (Auto) 0.01 (0.00-0.02) K/uL Absolute Nucleated RBC 0.50 H (0-0) K/uL Nucleated RBC % (auto) 18.7 % Target Cells 1+ [place] Bodies 1+ Echinocytes 1+ Sodium 136 (136-145) mmol/L Potassium 3.6 (3.5-5.1) mmol/L Chloride 107 (98-107) mmol/L Carbon Dioxide 21 (21-32) mmol/L Anion Gap 8.0 (3-11) BUN 17 (7-18) mg/dl Creatinine 0.87 (0.6-1.2) mg/dl Est Cr Clr Drug Dosing 66.8 ml/min Est GFR ( Amer) 80.5 ml/min Est GFR (Non-Af Amer) 69.4 ml/min BUN/Creatinine Ratio 19.4 (10-20) Glucose 81 (70-99) mg/dl Calcium 8.3 L (8.5-10.1) mg/dl Magnesium 2.1 (1.8-2.4) mg/dl Total Bilirubin 0.4 (0.2-1) mg/dl AST 54 H (15-37) U/L ALT 39 (12-78) Alkaline Phosphatase 54 (45-117) U/L Total Protein 6.4 (6.4-8.2) gm/dl Albumin 2.4 L (3.4-5.0) gm/dl Globulin 4.0 (2.5-4.0) gm/dl Albumin/Globulin Ratio 0.6 L (0.9-2) Bld Cult Staph aureus PCR Negative (Negative) Blood Culture MRSA PCR Negative (Negative) PG Care Time/CCT Total # of Minutes Spent Total Time Spent with Patient: Total time spent is greater than 50% in coordination of care (as documented) at patient's floor/unit and/or counseling patient: Coding Level of Care Code 30452 Subseq Hosp Care Lvl 3 Diagnoses Aspiration pneumonia J69.0 Pneumonia due to COVID-19 virus U07.1; J12.82 Acute metabolic encephalopathy G93.41 Hypoxia R09.02 History of CVA (cerebrovascular accident) Z86.73 GERD (gastroesophageal reflux disease) K21.9 Adrenal insufficiency E27.40 Rheumatoid arthritis M06.9 Back pain M54.9 Fibromyalgia M79.7 Elevated troponin R77.8 Nausea R11.0 Bacteremia R78.81 Transaminitis R74.01
[2021-04-13] MEDS: PREGABALIN 150 MG CAP PO SCH (20:36)
[2021-04-13] MEDS: FOLIC ACID 1 MG TAB PO SCH (20:37)
[2021-04-13] MEDS: DULoxetine HCL 30 MG CAP PO SCH (20:38)
[2021-04-14] MEDS ORDERED: ALBUT/IPRATROP 3MG/0.5MG NEB 3 ML VIAL NEB STA (02:35)
[2021-04-14] MEDS: AMPICILLIN/SULBACTAM SOD 3,000 MG in 0.9 % SODIUM CHLORIDE 100 ML IV SCH ×4 (04:18→21:27)
[2021-04-14] MEDS: ENOXAPARIN INJ 40 MG/0.4 ML SYR SQ SCH ×2 (05:52→17:25)
[2021-04-14 06:58] LABS: Mean Platelet Volume 11.4 fL (7.4-10.4); Platelet Count 127 K/uL (130-400)
[2021-04-14 07:31] LABS: Albumin Level 2.4 gm/dl (3.4-5.0); BUN Creatinine Ratio 21.7 (10-20); Calcium 8.7 mg/dl (8.5-10.1); Creatinine Clr Calc Pharmacy 69.9 ml/min; Est GFR (African American) 85.2 ml/min; Est GFR (Non-African American) 73.5 ml/min; Magnesium 2.3 mg/dl (1.8-2.4); Potassium 3.8 mmol/L (3.5-5.1)
[2021-04-14 07:34] LABS: Albumin Globulin Ratio 0.6 (0.9-2); Bilirubin,Total 0.3 mg/dl (0.2-1); C Reactive Protein 6.16 mg/dl (0-0.29); Globulin 4.1 gm/dl (2.5-4.0); Total Protein 6.5 gm/dl (6.4-8.2)
[2021-04-14 07:50] LABS: Acanthocytes 1+; Basophils # (auto) 0.02 K/uL (0-0.2); Basophils % (auto) 0.7 %; Hemoglobin 13.3 g/dL (12.0-16.0); Howell-Jolly Bodies 1+; Immature Granulocytes # (auto) 0.01 K/uL (0.00-0.02); Immature Granulocytes % (auto) 0.3 %; Lymphocytes # (auto) 2.31 K/uL (1.2-3.4); Lymphocytes % (auto) 80.2 %; Mean Corpuscular Hemoglobin 32.5 pg (25-34); Mean Corpuscular Volume 92.9 fL (80-100); Monocytes # (auto) 0.08 K/uL (0.11-0.59); Monocytes % (auto) 2.8 %; Neutrophils # (auto) 0.46 K/uL (1.4-6.5); Nucleated RBC # (auto) 0.39 K/uL (0-0); Nucleated RBC % (auto) 13.6 %; RDW Coefficient of Variation 15.4 % (11.5-14.5); RDW Standard Deviation 52.1 fL (36.4-46.3); Red Blood Count 4.09 M/uL (4.2-5.4); Target Cells 1+; White Blood Count 2.88 K/uL (4.8-10.8)
[2021-04-14] MEDS ORDERED: FUROSEMIDE 40 MG/4 ML VIAL IV ONE (08:31)
[2021-04-14] MEDS: MoRPHine SULFATE IR 15 MG TAB (IMMEDIATE RELEASE) PO PRN ×2 (09:14→17:25)
[2021-04-14] MEDS: dexAMETHasone 6 MG in SYRINGE 0 ML IV SCH (09:15)
[2021-04-14] MEDS: FAMOTIDINE 20 MG TAB PO SCH ×2 (09:15→21:26)
[2021-04-14] MEDS: ASPIRIN 81 MG ECTAB PO SCH (09:16)
[2021-04-14] MEDS: CLOPIDOGREL BISULFATE 75 MG TAB PO SCH (09:16)
[2021-04-14] MEDS: PANTOprazole 40 MG TAB PO SCH (09:16)
[2021-04-14] MEDS: OXYBUTYNIN CHLORIDE XL 5 MG TABCR PO SCH (09:16)
[2021-04-14] MEDS: ONDANSETRON INJ 2 MG/ML 2 ML VIAL IV PRN (17:25)
[2021-04-14] MEDS ORDERED: PROCHLORPERAZINE 5 MG in SYRINGE 4 ML IV PRN (18:29)
--- NOTE | 2021-04-14 18:37 | Hospitalist Progress Note ---
Date of Service April 14, 2021 Assessment & Plan (1) Pneumonia due to COVID-19 virus: Plan: Presented with acute encephalopathy, and now with ongoing fevers, bilateral infiltrates on chest x-ray, and tested positive for Covid-19 Also with diarrhea, nausea, and generalized malaise symptoms ongoing for over a week prior to admission no Remdesevir indicated given the late presentation No indication for Baresel labs/tocilizumab -Continue Dexamethasone 6 mg IV every morning -Continue incentive spirometer and flutter valve -Albuterol HFA as needed -Zofran for nausea -tylenol prn fever -Imodium as needed for diarrhea -Continue to follow labs (2) Aspiration pneumonia: Plan: Suspected upon admission reported that she has had difficulty controlling secretions recently. Initially started on Zosyn, but converted to Unasyn as she has no real risk factors for pseudomonalpneumonia Continue to follow clinically (3) Acute metabolic encephalopathy: Plan: CT of head without contrast negative for acute event Likely secondary to COVID-19 infection, adrenal insufficiency Patient is on several medications that may cause alteration in mentation, and these were initially held Likely was multifactorial, now improved. (4) Hypoxia: Plan: Related to Covid pneumonia, superimposed aspiration pneumoniacontinue Decadron, Unasyn, supportive care. Follow. (5) History of CVA (cerebrovascular accident): Plan: Continue aspirin and clopidogrel no acute CVA here on brain MRI (6) Adrenal insufficiency: Plan: Holding oral hydrocortisone from home continue dexamethasone IV for COVID PNA as above and this will suffice for stress dose steroids (7) Elevated troponin: Plan: initially suspected to have myopericarditis on admission but never had chest pain, no significant ECG changes ECHO without wall motion abnormalities, with moderate aortic insufficiency trop trended back down and only mildly elevated likely myocardial demand ischemia from COVID-19 infection (8) Nausea: Plan: Related to Covid, worse todaygiven that her QT is low, scheduled Zofran for 24 hours, add Compazine as needed. Continue current care otherwise (9) GERD (gastroesophageal reflux disease): Plan: continue po pepcid continue PPI (10) Bacteremia: Plan: As above, likely contaminant (i.e. to clarify there was no bacteremia) No need to repeat blood cultures (11) Transaminitis: Plan: Mildly elevated AST, secondary to Covid-19 Follow CMP periodically (12) Rheumatoid arthritis: Plan: Rheumatoid arthritis/back pain/fibromyalgia- continue home baclofen, duloxetine, morphine, pregabalin and trazodone but made trazodone and morphine prn On methotrexate in the outpatient setting and folic acid-hold MTX while acutely ill (13) Back pain: Plan: See above (14) Fibromyalgia: Plan: See above Plan: DVT Proph-Lovenox Dispo-continued stay on tele, PT/OT consults placed Continue current care Admission and Anticipated Discharge Date Admission Date: April 10, 2021 Subjective Feels a bit short of breath still, but a little bit better than earliernotes that after diuretic she felt like her breathing improved somewhat. Has a fairly constant nausea and no appetite. No change in taste or smell, however. She notes that coke does help with the nausea someparticularly whenever it is very cold. is at home with Covid as well, not as sick as she is Review of Systems Review of Systems: All systems reviewed & are unremarkable except as noted in HPI & below Physical Exam 2 Physical Exam: In general she is awake and alert fatigued but pleasant no distress. HEENT normocephalic atraumatic mucous membranes moist. Lungs show diminished air entry throughout, faint base right rales no rhonchi no wheezes no accessory muscle use good effort, she is about 91 to 92% on nasal cannula, and whenever she talks she occasionally desaturates to the high 80s, but quickly rebounds. Extremities show no cyanosis clubbing or edema, she has symmetric equal bilateral calf tenderness with no erythema no cords Results & Data Results & Data ([facility] [place]) Vital Signs (Past 12 Hours) Vital Signs Temp Pulse Pulse Resp BP Pulse Ox 04/14/21 15:53 98.6 F 70 20 104/68 88 L 04/14/21 14:16 55 L 04/14/21 12:05 98.2 F 76 20 95/65 L 90 04/14/21 07:50 98.6 F 51 L 16 152/87 H 91 PG Care Time/CCT Total # of Minutes Spent Total Time Spent with Patient: Total time spent is greater than 50% in coordination of care (as documented) at patient's floor/unit and/or counseling patient: Coding Level of Care Code 09456 Subseq Hosp Care Lvl 3 Diagnoses Pneumonia due to COVID-19 virus U07.1; J12.82 Aspiration pneumonia J69.0 Acute metabolic encephalopathy G93.41 Hypoxia R09.02 History of CVA (cerebrovascular accident) Z86.73 Adrenal insufficiency E27.40 Elevated troponin R77.8 Nausea R11.0 GERD (gastroesophageal reflux disease) K21.9 Bacteremia R78.81 Transaminitis R74.01 Rheumatoid arthritis M06.9 Back pain M54.9 Fibromyalgia M79.7
[2021-04-14] MEDS: FOLIC ACID 1 MG TAB PO SCH (21:26)
[2021-04-14] MEDS: DULoxetine HCL 30 MG CAP PO SCH (21:26)
[2021-04-14] MEDS: PREGABALIN 150 MG CAP PO SCH (21:27)
[2021-04-14] MEDS: ONDANSETRON INJ 2 MG/ML 2 ML VIAL IV SCH (23:29)
[2021-04-15] MEDS: AMPICILLIN/SULBACTAM SOD 3,000 MG in 0.9 % SODIUM CHLORIDE 100 ML IV SCH ×4 (04:54→21:32)
[2021-04-15] MEDS: ONDANSETRON INJ 2 MG/ML 2 ML VIAL IV SCH ×3 (04:54→16:32)
[2021-04-15 06:27] LABS: Mean Corpuscular Hgb Conc 34.9 g/dL (32-36); Platelet Count 160 K/uL (130-400)
[2021-04-15] MEDS: ENOXAPARIN INJ 40 MG/0.4 ML SYR SQ SCH (06:28)
[2021-04-15 06:58] LABS: BUN Creatinine Ratio 20.5 (10-20); Calcium 8.3 mg/dl (8.5-10.1); Creatinine Clr Calc Pharmacy 62.3 ml/min; Est GFR (African American) 74.2 ml/min; Potassium 3.4 mmol/L (3.5-5.1)
[2021-04-15 06:59] LABS: C Reactive Protein 6.58 mg/dl (0-0.29); Hematocrit (blood only) 36.1 % (37-47); Hemoglobin 12.6 g/dL (12.0-16.0); Mean Corpuscular Volume 91.6 fL (80-100); Nucleated RBC # (auto) 0.36 K/uL (0-0); Nucleated RBC % (auto) 21.4 %; RDW Standard Deviation 49.8 fL (36.4-46.3); Red Blood Count 3.94 M/uL (4.2-5.4); White Blood Count 1.67 K/uL (4.8-10.8)
[2021-04-15 07:19] LABS: Acanthocytes 1+; Howell-Jolly Bodies 1+; Target Cells 1+
[2021-04-15 07:20] LABS: ANC (manual) 0.06 K/uL (1.4-6.5); Lymphocytes # (manual) 0.93 K/uL (1.2-3.4); Lymphocytes % (manual) 55.8 %; Monocytes # (manual) 0.02 K/uL (0.11-0.59); Monocytes % (manual) 0.9 %; Neutrophils # (manual) 0.06 K/uL (1.4-6.5); Neutrophils % (manual) 3.5 %; Reactive Lymphocytes # (manual) 0.66 K/uL; Reactive Lymphocytes % (manual) 39.8 %
[2021-04-15] MEDS: PANTOprazole 40 MG TAB PO SCH ×2 (07:40→21:38)
[2021-04-15] MEDS: ASPIRIN 81 MG ECTAB PO SCH (07:40)
[2021-04-15] MEDS: OXYBUTYNIN CHLORIDE XL 5 MG TABCR PO SCH (07:40)
[2021-04-15] MEDS: CLOPIDOGREL BISULFATE 75 MG TAB PO SCH (07:40)
[2021-04-15] MEDS: FUROSEMIDE INJ 20 MG/2 ML VIAL IV SCH (07:41)
[2021-04-15] MEDS: ZINC SULFATE 220 MG CAPSULE PO SCH (07:42)
[2021-04-15] MEDS: FAMOTIDINE 20 MG TAB PO SCH ×2 (07:42→21:38)
[2021-04-15] MEDS ORDERED: POTASSIUM CHLORIDE CRTAB 20 MEQ TABCR PO STA (08:27)
[2021-04-15] MEDS: ACETAMINOPHEN 325 MG TAB PO PRN (08:38)
[2021-04-15] MEDS ORDERED: OPTIRAY 320 125ml IV ONE (09:28)
--- NOTE | 2021-04-15 09:55 | CT Scan Report ---
CT ANGIOGRAPHY OF THE CHEST, PULMONARY EMBOLUS PROTOCOL CLINICAL HISTORY: covid, worsening hypoxia COMPARISON STUDY: Chest CT January 12, 2016. Chest radiograph April 10, 2021. TECHNIQUE: Following IV administration of 120 mL of Optiray, helical axial images of the chest were o btained utilizing the pulmonary embolus protocol. Maximal intensity projections and sagittal and cor onal reformats were viewed on an independent 3D workstation. IV contrast was administered without co mplication. Automated exposure control was utilized for the study. A dose lowering technique was ut ilized adhering to the principles of ALARA. CT DOSE: 535.37 mGycm FINDINGS: There are several segmental pulmonary emboli within the right lower lobe. No central pulmo nary embolus is present. Mild cardiomegaly is noted. No pericardial effusion. No pneumothorax or pleu ral effusion is noted. There are extensive groundglass opacities within the lungs. Small areas of con solidation within both lower lobes are noted, greater on the left. No cavitation is present. Prominen t mediastinal lymph nodes are likely reactive. Central airways are patent. Visualized portions of the upper abdomen are unremarkable. IMPRESSION: 1. Several small segmental pulmonary emboli within the right lower lobe. 2. Extensive ground glass opacities within the lungs with bilateral lower lobe foci of consolidation. The findings represent viral pneumonia. ACT 112: Negative or not required by law. Electronically signed by: Eliu Cavazos M.D. 04/15/2021 9:53 AM
[2021-04-15] MEDS ORDERED: ENOXAPARIN INJ 40 MG/0.4 ML SYR SQ ONE (10:30)
[2021-04-15] MEDS ORDERED: AZITHROMYCIN 500 MG in DEXTROSE 5% 250 ML IV ONE (11:00)
[2021-04-15] MEDS: dexAMETHasone 6 MG in SYRINGE 0 ML IV SCH (13:16)
[2021-04-15] MEDS ORDERED: POTASSIUM CHLORIDE CRTAB 20 MEQ TABCR PO SCH (16:00)
--- NOTE | 2021-04-15 17:01 | Hospitalist Progress Note ---
Date of Service April 15, 2021 Assessment & Plan (1) Pneumonia due to COVID-19 virus: Plan: Presented with acute encephalopathy, and now with ongoing fevers, bilateral infiltrates on chest x-ray, and tested positive for Covid-19 Also with diarrhea, nausea, and generalized malaise symptoms ongoing for over a week prior to admission no Remdesevir indicated given the late presentation No indication for barecitinib/tocilizumab -worsening hypoxia - CT chest: PEs noted (escalted lovenox to 1mg/kg q12), and diffuse viral appearing pneumonia (but given length of illness and neutropenia - did add zithromax to cover for atypicals since risk is there); MRSA nares neg ative -Continue Dexamethasone 6 mg IV every morning -continue lasix -Continue incentive spirometer and flutter valve -Albuterol HFA as needed -Zofran for nausea -tylenol prn fever -Imodium as needed for diarrhea -Continue to follow clinically, follow labs (2) Aspiration pneumonia: Plan: Suspected upon admission - see above CT mostly c/w viral pneumonia but with length of illness and neutropenia, bacterial overgrowth enough of a risk will continue empiric coverage and follow (3) Acute metabolic encephalopathy: Plan: CT of head without contrast negative for acute event Likely secondary to COVID-19 infection, adrenal insufficiency Patient is on several medications that may cause alteration in mentation, and these were initially held Likely was multifactorial, now improved overall (4) Hypoxia: Plan: Related to Covid pneumonia, possible superimposed bacterial pneumonia, PEs. continue supportive care, continue to treat underlying causes (5) History of CVA (cerebrovascular accident): Plan: Continue aspirin and clopidogrel no acute CVA here on brain MRI (6) Adrenal insufficiency: Plan: Holding oral hydrocortisone from home continue dexamethasone IV for COVID PNA as above and this will suffice for stress dose steroids (7) Elevated troponin: Plan: initially suspected to have myopericarditis on admission but never had chest pain, no significant ECG changes ECHO without wall motion abnormalities, with moderate aortic insufficiency trop trended back down and only mildly elevated likely myocardial demand ischemia from COVID-19 infection (8) Nausea: Plan: Related to Covid, still no appetite. suspect some gastritis given severity of illness and epigastric tenderness -H2 BID -PPI BID -add marinol BID -add carafate QID -zofran/compazine prn (9) GERD (gastroesophageal reflux disease): Plan: as above under nausea (10) Bacteremia: Plan: As above, likely contaminant (i.e. to clarify there was no bacteremia) No need to repeat blood cultures (11) Transaminitis: Plan: Mildly elevated AST, secondary to Covid-19 Follow CMP periodically (12) Rheumatoid arthritis: Plan: Rheumatoid arthritis/back pain/fibromyalgia- continue home baclofen, duloxetine, morphine, pregabalin and trazodone but made trazodone and morphine prn On methotrexate in the outpatient setting and folic acid-hold MTX while acutely ill (13) Back pain: Plan: See above (14) Fibromyalgia: Plan: See above Plan: Dispo-continued stay on tele, PT/OT consults placed Continue current care Admission and Anticipated Discharge Date Admission Date: April 10, 2021 Subjective more tired today - nursing did note some off and on confusion, but seems to be oriented whenever I see her. Breathing feels okayunfortunately did have to go up to high flow nasal cannula early this morning. Ongoing poor appetite. No other acute complaints. Review of Systems Review of Systems: All systems reviewed & are unremarkable except as noted in HPI & below Physical Exam Physical Exam: Sleeping fairly soundly at first, but awakens to physical stimuli. Appears very fatigued but otherwise no distress. HEENT normocephalic atraumatic mucous membranes moist. Lungs diminished throughout no tachypnea/accessory muscles good effortno rales rhonchi or wheezes. Abdomen soft but she does have epigastric tenderness no guarding rebound or rigidity. Skin shows no rashes, pallor, icterus. Results & Data Results & Data ([facility]) Vital Signs (Past 12 Hours) Vital Signs Temp Pulse Pulse Resp BP Pulse Ox 04/15/21 16:37 98.4 F 56 L 20 102/66 91 04/15/21 16:33 97.7 F 04/15/21 15:19 64 04/15/21 14:25 58 L 24 95 04/15/21 11:31 98.2 F 63 18 104/70 90 04/15/21 09:45 76 20 95 04/15/21 07:52 102.2 F H 73 20 108/71 91 04/15/21 06:58 69 18 91 PG Care Time/CCT Total # of Minutes Spent Total Time Spent with Patient: Total time spent is greater than 50% in coordination of care (as documented) at patient's floor/unit and/or counseling patient: Coding Level of Care Code 74300 Subseq Hosp Care Lvl 3 Diagnoses Pneumonia due to COVID-19 virus U07.1; J12.82 Aspiration pneumonia J69.0 Acute metabolic encephalopathy G93.41 Hypoxia R09.02 History of CVA (cerebrovascular accident) Z86.73 Adrenal insufficiency E27.40 Elevated troponin R77.8 Nausea R11.0 GERD (gastroesophageal reflux disease) K21.9 Bacteremia R78.81 Transaminitis R74.01 Rheumatoid arthritis M06.9 Back pain M54.9 Fibromyalgia M79.7
[2021-04-15] MEDS: SUCRALFATE 1 GM/10 ML UDC PO SCH ×2 (18:14→21:39)
[2021-04-15] MEDS: MoRPHine SULFATE IR 15 MG TAB (IMMEDIATE RELEASE) PO PRN (18:26)
[2021-04-15] MEDS: ALPRAZolam 0.5 MG TABLET PO PRN (20:02)
[2021-04-15] MEDS: PREGABALIN 150 MG CAP PO SCH (21:35)
[2021-04-15] MEDS: ENOXAPARIN 80 MG/0.8 ML SYR SQ SCH (21:37)
[2021-04-15] MEDS: DULoxetine HCL 30 MG CAP PO SCH (21:38)
[2021-04-15] MEDS: FOLIC ACID 1 MG TAB PO SCH (21:38)
[2021-04-16] MEDS: AMPICILLIN/SULBACTAM SOD 3,000 MG in 0.9 % SODIUM CHLORIDE 100 ML IV SCH ×4 (04:43→20:18)
[2021-04-16 07:53] LABS: Hematocrit (blood only) 35.1 % (37-47); Hemoglobin 12.2 g/dL (12.0-16.0); Mean Corpuscular Hgb Conc 34.8 g/dL (32-36); Mean Corpuscular Volume 92.1 fL (80-100); Mean Platelet Volume 11.1 fL (7.4-10.4); Nucleated RBC # (auto) 0.39 K/uL (0-0); Nucleated RBC % (auto) 20.3 %; Platelet Count 252 K/uL (130-400); RDW Coefficient of Variation 15.4 % (11.5-14.5); Red Blood Count 3.81 M/uL (4.2-5.4)
[2021-04-16 08:03] LABS: Albumin Globulin Ratio 0.5 (0.9-2); Albumin Level 2.1 gm/dl (3.4-5.0); BUN Creatinine Ratio 22.7 (10-20); Bilirubin,Total 0.3 mg/dl (0.2-1); Calcium 8.6 mg/dl (8.5-10.1); Creatinine Clr Calc Pharmacy 62.1 ml/min; Est GFR (African American) 76.2 ml/min; Est GFR (Non-African American) 65.7 ml/min; Globulin 3.9 gm/dl (2.5-4.0); Potassium 4.5 mmol/L (3.5-5.1)
[2021-04-16 08:09] LABS: Acanthocytes 1+; Echinocytes 1+; Howell-Jolly Bodies 1+; Target Cells 1+
[2021-04-16] MEDS: FAMOTIDINE 20 MG TAB PO SCH ×2 (08:19→20:38)
[2021-04-16] MEDS: PANTOprazole 40 MG TAB PO SCH ×2 (08:19→20:39)
[2021-04-16] MEDS: SUCRALFATE 1 GM/10 ML UDC PO SCH ×4 (08:19→20:42)
[2021-04-16] MEDS: ENOXAPARIN 80 MG/0.8 ML SYR SQ SCH ×2 (08:19→20:36)
[2021-04-16] MEDS: CLOPIDOGREL BISULFATE 75 MG TAB PO SCH (08:20)
[2021-04-16] MEDS: FUROSEMIDE INJ 20 MG/2 ML VIAL IV SCH (08:20)
[2021-04-16] MEDS: ZINC SULFATE 220 MG CAPSULE PO SCH (08:20)
[2021-04-16] MEDS: OXYBUTYNIN CHLORIDE XL 5 MG TABCR PO SCH (08:20)
[2021-04-16] MEDS: ASPIRIN 81 MG ECTAB PO SCH (08:21)
[2021-04-16 08:22] LABS: ALC (manual) 1.77 K/uL (1.2-3.4); ANC (manual) 0.08 K/uL (1.4-6.5); Lymphocytes # (manual) 1.17 K/uL (1.2-3.4); Lymphocytes % (manual) 61.8 %; Metamyelocytes # (manual) 0.02 K/uL (0-0); Metamyelocytes % (manual) 0.9 %; Monocytes # (manual) 0.03 K/uL (0.11-0.59); Monocytes % (manual) 1.7 %; Neutrophils # (manual) 0.08 K/uL (1.4-6.5); Neutrophils % (manual) 4.3 %; Reactive Lymphocytes # (manual) 0.59 K/uL; Reactive Lymphocytes % (manual) 31.3 %
[2021-04-16] MEDS: AZITHROMYCIN 250 MG in DEXTROSE 5% 250 ML IV SCH (08:33)
[2021-04-16] MEDS ORDERED: FUROSEMIDE INJ 20 MG/2 ML VIAL IV ONE (09:30)
[2021-04-16] MEDS: dexAMETHasone 6 MG in SYRINGE 0 ML IV SCH (10:05)
[2021-04-16] MEDS: MoRPHine SULFATE IR 15 MG TAB (IMMEDIATE RELEASE) PO PRN (10:11)
--- NOTE | 2021-04-16 15:20 | Hospitalist Progress Note ---
Date of Service April 16, 2021 Assessment & Plan (1) Pneumonia due to COVID-19 virus: Plan: Presented with acute encephalopathy, and now with ongoing fevers, bilateral infiltrates on chest x-ray, and tested positive for Covid-19 symptoms ongoing for over a week prior to admission no Remdesevir indicated given the late presentation No indication for barecitinib/tocilizumab (duration of hospitalization prior to needing high flow, as well as lack of height of elevation of inflammatory markers) -worsening hypoxia --> CT chest: PEs noted (escalted lovenox to 1mg/kg q12), and diffuse viral appearing pneumonia (but given length of illness and neutropenia -continue to cover for atypicals since risk is there); MRSA nares negative -Continue Dexamethasone 6 mg IV daily -continue lasix (increased todaycontinue to follow closely) -Continue incentive spirometer and flutter valve -Albuterol HFA as needed -Zofran for nausea -tylenol prn fever -Imodium as needed for diarrhea -Continue to follow clinically, follow labs (2) Acute metabolic encephalopathy: Plan: CT of head without contrast negative for acute event Likely secondary to COVID-19 infection, adrenal insufficiency Patient is on several medications that may cause alteration in mentation, and these were initially held Likely was multifactorial, now improved overall (3) Hypoxia: Plan: Related to Covid pneumonia, possible superimposed bacterial pneumonia, PEs. continue supportive care, continue to treat underlying causes, now needing 100% high flow nasal cannula. Reiterated trial of proning to patientgiven that she had not even tried yet, recommended as "a homework assignment" that she lay on her belly for 15 minutes at a very very hour while awake. Also discussed with patient very frankly the need to maintain oxygenation, and that unfortunately it would be very dangerous to remove nasal cannula for better audio on phone calls. (4) History of CVA (cerebrovascular accident): Plan: Continue aspirin and clopidogrel no acute CVA here on brain MRI (5) Adrenal insufficiency: Plan: Holding oral hydrocortisone from home continue dexamethasone IV for COVID PNA as above and this will suffice for stress dose steroids (6) Elevated troponin: Plan: initially suspected to have myopericarditis on admission but never had chest pain, no significant ECG changes ECHO without wall motion abnormalities, with moderate aortic insufficiency trop trended back down and only mildly elevated likely myocardial demand ischemia from COVID-19 infection (7) Nausea: Plan: Related to Covid, today finally doing a bit better. suspect some gastritis given severity of illness and epigastric tenderness -H2 BID -PPI BID -Continue marinol BID -Continue carafate QID -zofran/compazine prn (8) GERD (gastroesophageal reflux disease): Plan: as above under nausea (9) Bacteremia: Plan: As above, likely contaminant (i.e. to clarify there was no bacteremia) No need to repeat blood cultures (10) Transaminitis: Plan: Mildly elevated AST, secondary to Covid-19 Follow CMP periodically (11) Rheumatoid arthritis: Plan: Rheumatoid arthritis/back pain/fibromyalgia- continue home baclofen, duloxetine, morphine, pregabalin and trazodone but made trazodone and morphine prn On methotrexate in the outpatient setting and folic acid-hold MTX while acutely ill (12) Back pain: Plan: See above (13) Fibromyalgia: Plan: See above Plan: Dispo-continued stay on tele, PT/OT consults placed Continue current care Admission and Anticipated Discharge Date Admission Date: April 10, 2021 Subjective Fatigued, does have shortness of breath off and onnot just whenever she is trying to get up to use the bathroom/etc. but also occasionally just laying in bed. She has not yet tried laying on her stomach. She complains that the high flow nasal cannula is too loud for people to hear her whenever she is trying to call them on the phone. Her appetite has improved, she is eating better, does not really have any stomach pain now. Review of Systems Review of Systems: All systems reviewed & are unremarkable except as noted in HPI & below Physical Exam Physical Exam: In general she is awake and alert fatigued no distress. HEENT normocephalic atraumatic mucous membranes are moist. Cardio regular but distant, lungs quiet throughout may be faint rales base left, no rhonchi no wheezes no accessory muscle use. Abdomen soft nondistended nontender no masses organomegaly. Extremities without cyanosis clubbing or edema no calf tenderness. Skin shows no rashes no pallor or icterus. Neuro without focal deficits. Results & Data Results & Data ([facility]) Vital Signs (Past 12 Hours) Vital Signs Temp Pulse Pulse Resp BP Pulse Ox 04/16/21 11:51 98.6 F 78 22 104/71 90 04/16/21 10:44 76 18 90 04/16/21 07:52 98.4 F 52 L 24 136/82 92 04/16/21 07:23 58 L 20 90 04/16/21 04:19 97.9 F 55 L 24 105/69 91 PG Care Time/CCT Total # of Minutes Spent Total Time Spent with Patient: Total time spent is greater than 50% in coordination of care (as documented) at patient's floor/unit and/or counseling patient: Coding Level of Care Code 04987 Subseq Hosp Care Lvl 3 Diagnoses Pneumonia due to COVID-19 virus U07.1; J12.82 Acute metabolic encephalopathy G93.41 Hypoxia R09.02 History of CVA (cerebrovascular accident) Z86.73 Adrenal insufficiency E27.40 Elevated troponin R77.8 Nausea R11.0 GERD (gastroesophageal reflux disease) K21.9 Bacteremia R78.81 Transaminitis R74.01 Rheumatoid arthritis M06.9 Back pain M54.9 Fibromyalgia M79.7
[2021-04-16] MEDS: DULoxetine HCL 30 MG CAP PO SCH (20:36)
[2021-04-16] MEDS: FOLIC ACID 1 MG TAB PO SCH (20:38)
[2021-04-16] MEDS: PREGABALIN 150 MG CAP PO SCH (20:39)
[2021-04-16] MEDS: ALPRAZolam 0.5 MG TABLET PO PRN (21:43)
[2021-04-17] MEDS: AMPICILLIN/SULBACTAM SOD 3,000 MG in 0.9 % SODIUM CHLORIDE 100 ML IV SCH ×2 (03:15→11:34)
[2021-04-17 07:18] LABS: Hematocrit (blood only) 35.7 % (37-47); Hemoglobin 12.4 g/dL (12.0-16.0); Mean Corpuscular Hemoglobin 32.2 pg (25-34); Mean Corpuscular Hgb Conc 34.7 g/dL (32-36); Mean Corpuscular Volume 92.7 fL (80-100); Mean Platelet Volume 11.4 fL (7.4-10.4); Nucleated RBC # (auto) 0.29 K/uL (0-0); Nucleated RBC % (auto) 9.5 %; Platelet Count 370 K/uL (130-400); RDW Coefficient of Variation 15.3 % (11.5-14.5); RDW Standard Deviation 51.7 fL (36.4-46.3); Red Blood Count 3.85 M/uL (4.2-5.4); White Blood Count 3.01 K/uL (4.8-10.8)
[2021-04-17 07:37] LABS: Basophils # (auto) 0.04 K/uL (0-0.2); Basophils % (auto) 1.3 %; Eosinophils # (auto) 0.01 K/uL (0-0.5); Eosinophils % (auto) 0.3 %; Lymphocytes # (auto) 2.39 K/uL (1.2-3.4); Lymphocytes % (auto) 79.4 %; Monocytes # (auto) 0.52 K/uL (0.11-0.59); Monocytes % (auto) 17.3 %; Neutrophils # (auto) 0.05 K/uL (1.4-6.5); Neutrophils % (auto) 1.7 %
[2021-04-17 07:44] LABS: Acanthocytes 1+; Echinocytes 2+; Howell-Jolly Bodies 1+; Target Cells 1+
[2021-04-17 07:53] LABS: BUN Creatinine Ratio 22.7 (10-20); C Reactive Protein 3.93 mg/dl (0-0.29); Calcium 8.9 mg/dl (8.5-10.1); Creatinine Clr Calc Pharmacy 57.6 ml/min; Est GFR (African American) 69.7 ml/min; Est GFR (Non-African American) 60.1 ml/min; Potassium 3.9 mmol/L (3.5-5.1)
[2021-04-17] MEDS: MoRPHine SULFATE IR 15 MG TAB (IMMEDIATE RELEASE) PO PRN ×2 (08:20→21:23)
[2021-04-17] MEDS: ASPIRIN 81 MG ECTAB PO SCH (08:22)
[2021-04-17] MEDS: CLOPIDOGREL BISULFATE 75 MG TAB PO SCH (08:23)
[2021-04-17] MEDS: PANTOprazole 40 MG TAB PO SCH ×2 (08:23→21:24)
[2021-04-17] MEDS: FAMOTIDINE 20 MG TAB PO SCH ×2 (08:23→21:22)
[2021-04-17] MEDS: ZINC SULFATE 220 MG CAPSULE PO SCH (08:24)
[2021-04-17] MEDS: OXYBUTYNIN CHLORIDE XL 5 MG TABCR PO SCH (08:24)
[2021-04-17] MEDS: FUROSEMIDE 40 MG/4 ML VIAL IV SCH (08:24)
[2021-04-17] MEDS: SUCRALFATE 1 GM/10 ML UDC PO SCH ×4 (08:25→21:22)
[2021-04-17] MEDS: ENOXAPARIN 80 MG/0.8 ML SYR SQ SCH ×2 (08:25→21:22)
[2021-04-17] MEDS: AZITHROMYCIN 250 MG in DEXTROSE 5% 250 ML IV SCH (09:26)
[2021-04-17] MEDS: dexAMETHasone 6 MG in SYRINGE 0 ML IV SCH (11:33)
--- NOTE | 2021-04-17 17:08 | Hospitalist Progress Note ---
Date of Service April 17, 2021 Assessment & Plan (1) Pneumonia due to COVID-19 virus: Plan: Presented with acute encephalopathy, and now with ongoing fevers, bilateral infiltrates on chest x-ray, and tested positive for Covid-19 symptoms ongoing for over a week prior to admission no Remdesevir indicated given the late presentation No indication for barecitinib/tocilizumab (duration of hospitalization prior to needing high flow, as well as lack of height of elevation of inflammatory markers) -worsening hypoxia at the beginning of the week--> CT chest: PEs noted (escalted lovenox to 1mg/kg q12), and diffuse viral appearing pneumonia (but given length of illness and neutropenia -continue to cover for atypicals since risk is there); MRSA nares negative -Continue Dexamethasone 6 mg IV daily -continue lasix and follow BMP -Continue incentive spirometer and flutter valve, continue proning -Albuterol HFA as needed -Zofran for nausea -tylenol prn fever -Imodium as needed for diarrhea -Continue to follow clinically, follow labs (2) Acute metabolic encephalopathy: Plan: CT of head without contrast negative for acute event Likely secondary to COVID-19 infection, adrenal insufficiency Patient is on several medications that may cause alteration in mentation, and these were initially held Likely was multifactorial, now improved overall (3) Hypoxia: Plan: Related to Covid pneumonia, possible superimposed bacterial pneumonia, PEs. continue supportive care, continue to treat underlying causes, continue supportive care (4) History of CVA (cerebrovascular accident): Plan: Continue aspirin and clopidogrel no acute CVA here on brain MRI (5) Adrenal insufficiency: Plan: Holding oral hydrocortisone from home continue dexamethasone IV for COVID PNA as above and this will suffice for stress dose steroids (6) Elevated troponin: Plan: initially suspected to have myopericarditis on admission but never had chest pain, no significant ECG changes ECHO without wall motion abnormalities, with moderate aortic insufficiency trop trended back down and only mildly elevated likely was myocardial demand ischemia from COVID-19 infection (7) Nausea: Plan: Related to Covid, now doing better continue current care -H2 BID -PPI BID -Continue marinol BID -Continue carafate QID -zofran/compazine prn (8) GERD (gastroesophageal reflux disease): Plan: as above under nausea (9) Bacteremia: Plan: As above, likely contaminant (i.e. to clarify there was no bacteremia) No need to repeat blood cultures (10) Transaminitis: Plan: Mildly elevated AST, secondary to Covid-19 Follow CMP periodically (11) Rheumatoid arthritis: Plan: Rheumatoid arthritis/back pain/fibromyalgia- continue home baclofen, duloxetine, morphine, pregabalin and trazodone but made trazodone and morphine prn On methotrexate in the outpatient setting and folic acid-hold MTX while acutely ill (12) Back pain: Plan: See above (13) Fibromyalgia: Plan: See above Plan: Dispo-continued stay on tele, PT/OT consults placed Continue current care Admission and Anticipated Discharge Date Admission Date: April 10, 2021 Subjective Feeling better. Still feeling short of breath off and on, and definitely with exertion, but overall feeling a little bit better. Stomach feels better and is eating much better. No new complaints. Is using incentive spirometer, flutter valve, and proning far more often. Later called to update husbandand he sounded moderately dyspneic over the phone, as well as noting poor appetiteurged him to get evaluated MYCHAL. Review of Systems Review of Systems: All systems reviewed & are unremarkable except as noted in HPI & below Physical Exam Physical Exam: General she is awake and alert pleasant no distress. HEENT normocephalic atraumatic mucous membranes moist. Cardio is distant no rubs murmurs or gallops. Lungs are diminished throughout with faint bibasilar ralesfairly similar to previous, no accessory muscle use good effort. Abdomen is soft nondistended nontender no masses organomegaly. Neuro shows no focal deficits. Skin without rashes, pallor, icterus. Her overall demeanor is much brighter and more talkative today Results & Data Results & Data ([facility]) Vital Signs (Past 12 Hours) Vital Signs Temp Pulse Pulse Pulse Resp BP BP 04/17/21 15:51 96.8 F L 61 18 101/57 L 04/17/21 15:35 60 22 04/17/21 11:19 77 20 04/17/21 11:14 99.5 F 82 22 105/65 04/17/21 08:19 97.9 F 77 18 129/76 04/17/21 07:52 74 21 04/17/21 07:28 54 L Pulse Ox 04/17/21 15:51 91 04/17/21 15:35 91 04/17/21 11:19 89 L 04/17/21 11:14 89 L 04/17/21 08:19 91 04/17/21 07:52 93 04/17/21 07:28 PG Care Time/CCT Total # of Minutes Spent Total Time Spent with Patient: Total time spent is greater than 50% in coordination of care (as documented) at patient's floor/unit and/or counseling patient: Coding Level of Care Code 51770 Subseq Hosp Care Lvl 3 Diagnoses Pneumonia due to COVID-19 virus U07.1; J12.82 Acute metabolic encephalopathy G93.41 Hypoxia R09.02 History of CVA (cerebrovascular accident) Z86.73 Adrenal insufficiency E27.40 Elevated troponin R77.8 Nausea R11.0 GERD (gastroesophageal reflux disease) K21.9 Bacteremia R78.81 Transaminitis R74.01 Rheumatoid arthritis M06.9 Back pain M54.9 Fibromyalgia M79.7
[2021-04-17] MEDS: FOLIC ACID 1 MG TAB PO SCH (21:22)
[2021-04-17] MEDS: PREGABALIN 150 MG CAP PO SCH (21:22)
[2021-04-17] MEDS: DULoxetine HCL 30 MG CAP PO SCH (21:22)
[2021-04-18] MEDS: ENOXAPARIN 80 MG/0.8 ML SYR SQ SCH ×2 (08:13→20:28)
[2021-04-18] MEDS: SUCRALFATE 1 GM/10 ML UDC PO SCH ×4 (08:13→20:26)
[2021-04-18] MEDS: OXYBUTYNIN CHLORIDE XL 5 MG TABCR PO SCH (08:13)
[2021-04-18] MEDS: CLOPIDOGREL BISULFATE 75 MG TAB PO SCH (08:13)
[2021-04-18] MEDS: FAMOTIDINE 20 MG TAB PO SCH ×2 (08:13→20:27)
[2021-04-18] MEDS: dexAMETHasone 6 MG in SYRINGE 0 ML IV SCH (08:14)
[2021-04-18] MEDS: ASPIRIN 81 MG ECTAB PO SCH (08:14)
[2021-04-18] MEDS: ZINC SULFATE 220 MG CAPSULE PO SCH (08:14)
[2021-04-18] MEDS: PANTOprazole 40 MG TAB PO SCH ×2 (08:14→20:28)
[2021-04-18] MEDS: AZITHROMYCIN 250 MG in DEXTROSE 5% 250 ML IV SCH (08:15)
[2021-04-18] MEDS: FUROSEMIDE 40 MG/4 ML VIAL IV SCH (08:37)
[2021-04-18] MEDS: MoRPHine SULFATE IR 15 MG TAB (IMMEDIATE RELEASE) PO PRN (09:18)
[2021-04-18] MEDS: ONDANSETRON INJ 2 MG/ML 2 ML VIAL IV PRN (09:20)
[2021-04-18 10:29] LABS: Hematocrit (blood only) 38.6 % (37-47); Hemoglobin 13.2 g/dL (12.0-16.0); Mean Corpuscular Hemoglobin 32.3 pg (25-34); Mean Corpuscular Hgb Conc 34.2 g/dL (32-36); Mean Corpuscular Volume 94.4 fL (80-100); Mean Platelet Volume 11.4 fL (7.4-10.4); Nucleated RBC # (auto) 0.21 K/uL (0-0); Nucleated RBC % (auto) 7.1 %; Platelet Count 507 K/uL (130-400); RDW Coefficient of Variation 15.2 % (11.5-14.5); RDW Standard Deviation 51.9 fL (36.4-46.3); Red Blood Count 4.09 M/uL (4.2-5.4); White Blood Count 3.04 K/uL (4.8-10.8)
[2021-04-18 11:02] LABS: Albumin Level 2.3 gm/dl (3.4-5.0); BUN Creatinine Ratio 23.7 (10-20); Calcium 9.1 mg/dl (8.5-10.1); Creatinine Clr Calc Pharmacy 59.8 ml/min; Est GFR (African American) 73.3 ml/min; Est GFR (Non-African American) 63.2 ml/min; Potassium 3.2 mmol/L (3.5-5.1)
[2021-04-18 11:13] LABS: Albumin Globulin Ratio 0.5 (0.9-2); Bilirubin,Total 0.4 mg/dl (0.2-1); Globulin 4.5 gm/dl (2.5-4.0); Total Protein 6.8 gm/dl (6.4-8.2)
[2021-04-18 11:28] LABS: Acanthocytes 1+; Basophils # (auto) 0.04 K/uL (0-0.2); Basophils % (auto) 1.3 %; Eosinophils # (auto) 0.06 K/uL (0-0.5); Howell-Jolly Bodies 1+; Immature Granulocytes # (auto) 0.02 K/uL (0.00-0.02); Immature Granulocytes % (auto) 0.7 %; Lymphocytes # (auto) 2.21 K/uL (1.2-3.4); Lymphocytes % (auto) 72.7 %; Monocytes # (auto) 0.53 K/uL (0.11-0.59); Monocytes % (auto) 17.4 %; Neutrophils # (auto) 0.18 K/uL (1.4-6.5); Neutrophils % (auto) 5.9 %; Target Cells 1+
[2021-04-18] MEDS ORDERED: POTASSIUM CHLORIDE CRTAB 20 MEQ TABCR PO STA (18:17)
--- NOTE | 2021-04-18 18:25 | Hospitalist Progress Note ---
Date of Service April 18, 2021 Assessment & Plan (1) Pneumonia due to COVID-19 virus: Plan: Presented with acute encephalopathy, and now with ongoing fevers, bilateral infiltrates on chest x-ray, and tested positive for Covid-19 symptoms ongoing for over a week prior to admission no Remdesevir indicated given the late presentation No indication for barecitinib/tocilizumab (duration of hospitalization prior to needing high flow, as well as lack of height of elevation of inflammatory markers) -PEs noted (escalted lovenox to 1mg/kg q12), and diffuse viral appearing pneumonia (but given length of illness and neutropenia -continue to cover for atypicals since risk is there); MRSA nares negative -Continue Dexamethasone 6 mg IV daily -continue lasix and follow BMP -Continue incentive spirometer and flutter valve, continue proning -Albuterol HFA as needed -Zofran for nausea -tylenol prn fever -Imodium as needed for diarrhea -Continue to follow clinically, follow labs -Starting to show steady, daily improvement (2) Acute metabolic encephalopathy: Plan: CT of head without contrast negative for acute event Likely secondary to COVID-19 infection, adrenal insufficiency Patient is on several medications that may cause alteration in mentation, and these were initially held Likely was multifactorial, now improved overall (3) Hypoxia: Plan: Related to Covid pneumonia, possible superimposed bacterial pneumonia, PEs. continue supportive care, continue to treat underlying causes, continue supportive carestarting to show steady improvement (4) History of CVA (cerebrovascular accident): Plan: Continue aspirin and clopidogrel no acute CVA here on brain MRI (5) Adrenal insufficiency: Plan: Holding oral hydrocortisone from home continue dexamethasone IV for COVID PNA as above and this will suffice for stress dose steroids (6) Elevated troponin: Plan: initially suspected to have myopericarditis on admission but never had chest pain, no significant ECG changes ECHO without wall motion abnormalities, with moderate aortic insufficiency trop trended back down and only mildly elevated likely was myocardial demand ischemia from COVID-19 infection (7) Nausea: Plan: Related to Covid, improved and eating better -H2 BID -PPI BID -Continue marinol BID -Continue carafate QID -zofran/compazine prn (8) GERD (gastroesophageal reflux disease): Plan: as above under nausea (9) Bacteremia: Plan: As above, likely contaminant (i.e. to clarify there was no bacteremia) No need to repeat blood cultures (10) Transaminitis: Plan: Mildly elevated AST, secondary to Covid-19 Follow CMP periodicallyimproved today (11) Rheumatoid arthritis: Plan: Rheumatoid arthritis/back pain/fibromyalgia- continue home baclofen, duloxetine, morphine, pregabalin and trazodone but made trazodone and morphine prn On methotrexate in the outpatient setting and folic acid-hold MTX while acutely ill (12) Back pain: Plan: See above (13) Fibromyalgia: Plan: See above Plan: Dispo-continued stay on tele, PT/OT consults placed Continue current care, but showing improvement. Updated . Admission and Anticipated Discharge Date Admission Date: April 10, 2021 Subjective Feeling better. Breathing better. Sitting up in bed eating a pudding. Generally less dyspneicstill short of breath off and on but less than before. still with GARRIDO going to bathroom though Review of Systems Review of Systems: All systems reviewed & are unremarkable except as noted in HPI & below Physical Exam Physical Exam: gen aao pleasant nad heent nc at mmm breathing unlabored no accessory muscles good effort no focal neuro deficits Results & Data Results & Data ([facility]) Vital Signs (Past 12 Hours) Vital Signs Temp Pulse Pulse Resp BP BP Pulse Ox 04/18/21 15:18 98.2 F 62 17 106/69 93 04/18/21 14:48 67 20 90 04/18/21 11:32 98.2 F 88 19 102/71 92 04/18/21 11:00 88 19 93 04/18/21 08:09 21 92 04/18/21 07:28 99.0 F 62 18 126/80 99 PG Care Time/CCT Total # of Minutes Spent Total Time Spent with Patient: Total time spent is greater than 50% in coordination of care (as documented) at patient's floor/unit and/or counseling patient: Coding Level of Care Code 48000 Subseq Hosp Care Lvl 3 Diagnoses Pneumonia due to COVID-19 virus U07.1; J12.82 Acute metabolic encephalopathy G93.41 Hypoxia R09.02 History of CVA (cerebrovascular accident) Z86.73 Adrenal insufficiency E27.40 Elevated troponin R77.8 Nausea R11.0 GERD (gastroesophageal reflux disease) K21.9 Bacteremia R78.81 Transaminitis R74.01 Rheumatoid arthritis M06.9 Back pain M54.9 Fibromyalgia M79.7
[2021-04-18] MEDS: DULoxetine HCL 30 MG CAP PO SCH (20:25)
[2021-04-18] MEDS: PREGABALIN 150 MG CAP PO SCH (20:26)
[2021-04-18] MEDS: FOLIC ACID 1 MG TAB PO SCH (21:38)
[2021-04-19 06:37] LABS: Hematocrit (blood only) 41.2 % (37-47); Hemoglobin 13.8 g/dL (12.0-16.0); Mean Corpuscular Hemoglobin 31.5 pg (25-34); Mean Corpuscular Hgb Conc 33.5 g/dL (32-36); Mean Corpuscular Volume 94.1 fL (80-100); Mean Platelet Volume 11.5 fL (7.4-10.4); Nucleated RBC # (auto) 0.22 K/uL (0-0); Nucleated RBC % (auto) 4.1 %; Platelet Count 563 K/uL (130-400); RDW Coefficient of Variation 15.2 % (11.5-14.5); RDW Standard Deviation 51.2 fL (36.4-46.3); Red Blood Count 4.38 M/uL (4.2-5.4); White Blood Count 5.53 K/uL (4.8-10.8)
[2021-04-19 07:05] LABS: Acanthocytes 1+; Basophils # (auto) 0.06 K/uL (0-0.2); Basophils % (auto) 1.1 %; Eosinophils # (auto) 0.13 K/uL (0-0.5); Eosinophils % (auto) 2.4 %; Howell-Jolly Bodies 1+; Immature Granulocytes # (auto) 0.18 K/uL (0.00-0.02); Immature Granulocytes % (auto) 3.3 %; Lymphocytes # (auto) 3.46 K/uL (1.2-3.4); Lymphocytes % (auto) 62.6 %; Monocytes # (auto) 1.06 K/uL (0.11-0.59); Monocytes % (auto) 19.2 %; Neutrophils # (auto) 0.64 K/uL (1.4-6.5); Neutrophils % (auto) 11.4 %; Target Cells 1+
[2021-04-19 07:07] LABS: BUN Creatinine Ratio 26.7 (10-20); Calcium 9.3 mg/dl (8.5-10.1); Creatinine Clr Calc Pharmacy 55.7 ml/min; Est GFR (African American) 74.2 ml/min; Potassium 4.5 mmol/L (3.5-5.1)
[2021-04-19] MEDS: CLOPIDOGREL BISULFATE 75 MG TAB PO SCH (10:13)
[2021-04-19] MEDS: SUCRALFATE 1 GM/10 ML UDC PO SCH ×4 (10:13→21:19)
[2021-04-19] MEDS: OXYBUTYNIN CHLORIDE XL 5 MG TABCR PO SCH (10:13)
[2021-04-19] MEDS: FAMOTIDINE 20 MG TAB PO SCH ×2 (10:13→21:18)
[2021-04-19] MEDS: ZINC SULFATE 220 MG CAPSULE PO SCH (10:13)
[2021-04-19] MEDS: ASPIRIN 81 MG ECTAB PO SCH (10:13)
[2021-04-19] MEDS: PANTOprazole 40 MG TAB PO SCH ×2 (10:13→21:19)
[2021-04-19] MEDS: ENOXAPARIN 80 MG/0.8 ML SYR SQ SCH ×2 (10:14→21:20)
[2021-04-19] MEDS: FUROSEMIDE 40 MG/4 ML VIAL IV SCH (10:14)
[2021-04-19] MEDS: AZITHROMYCIN 250 MG in DEXTROSE 5% 250 ML IV SCH (10:14)
[2021-04-19] MEDS: dexAMETHasone 6 MG in SYRINGE 0 ML IV SCH (10:15)
[2021-04-19] MEDS: SULFAMETHOXAZOLE/TRIMETHOPRIM DS 800/160MG TAB PO SCH (10:45)
[2021-04-19] MEDS: MoRPHine SULFATE IR 15 MG TAB (IMMEDIATE RELEASE) PO PRN (10:45)
[2021-04-19] MEDS: ONDANSETRON INJ 2 MG/ML 2 ML VIAL IV PRN (10:45)
--- NOTE | 2021-04-19 16:51 | XRay Report ---
SINGLE VIEW CHEST CLINICAL HISTORY: Hypoxia. Covid. FINDINGS: An AP, portable, upright chest radiograph is compared to study dated 04/10/2021 and correla dilshad with chest CT dated 04/15/2021. The patient is status post midline sternotomy. The heart is top n ormal for projection. Coarsening of interstitium has increased from previous. There is increasing air space consolidation throughout both lungs, greatest at the left lung base. No large pleural effusion or pneumothorax is seen. The skeletal structures are osteopenic. There are healed left-sided rib frac tures. IMPRESSION: Multifocal airspace consolidation has modestly worsened as compared to previous. This is most confluent at the left lung base. ACT 112: Negative or not required by law. Electronically signed by: Eren Gibson M.D. 04/19/2021 4:50 PM
--- NOTE | 2021-04-19 18:00 | Hospitalist Progress Note ---
Date of Service April 19, 2021 Assessment & Plan (1) Pneumonia due to COVID-19 virus: Plan: Presented with acute encephalopathy, and now with ongoing fevers, bilateral infiltrates on chest x-ray, and tested positive for Covid-19 symptoms ongoing for over a week prior to admission no Remdesevir indicated given the late presentation No indication for barecitinib/tocilizumab (duration of hospitalization prior to needing high flow, as well as lack of height of elevation of inflammatory markers) -PEs noted (escalted lovenox to 1mg/kg q12), and diffuse viral appearing pneumonia (but given length of illness and neutropenia -continue to cover for atypicals since risk is there); MRSA nares negative -Continue Dexamethasone 6 mg IV daily -continue lasix and follow BMP -With increasing rales today, repeat chest x-rayno overt pulmonary edema, slight progression of viral pneumonia appearance. Blood pressure a little too low to empirically give more Lasix than our DM. Supportive care -Continue incentive spirometer and flutter valve, continue proning -Albuterol HFA as needed -tylenol prn fever -Continue to follow clinically, follow labs -Overall has been starting to show steady, daily improvement, today a minor setbackbut appears more from fatigue than anything. continue supportive care --->since baseline immune compromise from rheumatoid arthritis and adrenal insufficiency on chronic methotrexate and chronic steroids, coupled by current COVID-19/Decadron treatmentreasonably high risk for opportunistic infectionswill start prophylaxis with Bactrim (2) Acute metabolic encephalopathy: Plan: CT of head without contrast negative for acute event Likely secondary to COVID-19 infection, adrenal insufficiency Patient is on several medications that may cause alteration in mentation, and these were initially held Likely was multifactorial, now improved overall (3) Hypoxia: Plan: Related to Covid pneumonia, possible superimposed bacterial pneumonia, PEs. continue supportive care, continue to treat underlying causes, continue supportive carefollow closely given slight regression today. No clear intervention needed, if blood pressure allows would diurese a little more. Continue supportive care (4) History of CVA (cerebrovascular accident): Plan: Continue aspirin and clopidogrel no acute CVA here on brain MRI (5) Adrenal insufficiency: Plan: Holding oral hydrocortisone from home continue dexamethasone IV for COVID PNA as above, and this will suffice for stress dose steroids (6) Elevated troponin: Plan: initially suspected to have myopericarditis on admission but never had chest pain, no significant ECG changes ECHO without wall motion abnormalities, with moderate aortic insufficiency trop trended back down and only mildly elevated likely was myocardial demand ischemia from COVID-19 infection (7) Nausea: Plan: Related to Covid, improved and eating better (today's setback seems to be due to fatigue as much is anything) -H2 BID -PPI BID -Continue marinol BID -Continue carafate QID -zofran/compazine prn -Appreciate dietitian input (8) GERD (gastroesophageal reflux disease): Plan: as above under nausea (9) Bacteremia: Plan: As above, likely contaminant (i.e. to clarify there was no bacteremia) No need to repeat blood cultures (10) Transaminitis: Plan: Mildly elevated AST, secondary to Covid-19 Follow CMP - next check tomorrow (11) Rheumatoid arthritis: Plan: Rheumatoid arthritis/back pain/fibromyalgia- continue home baclofen, duloxetine, morphine, pregabalin and trazodone but made trazodone and morphine prn On methotrexate in the outpatient setting and folic acid-hold MTX while acutely ill (12) Back pain: Plan: See above (13) Fibromyalgia: Plan: See above Plan: Dispo-continued stay on tele, PT/OT consults placed Continue current care, but showing improvement. tried to update - no answer no ability to leave voicemail. Admission and Anticipated Discharge Date Admission Date: April 10, 2021 Subjective Feeling more tired today. Not really more short of breath, but did have to have FiO2 turned back up. Less appetite todaybut she notes mostly due to fatiguenot nausea or abdominal pain. tried to call at both #'s - one went to voicemail, mailbox not set up; other rang with no answer no voicemail. Review of Systems Review of Systems: All systems reviewed & are unremarkable except as noted in HPI & below Physical Exam Physical Exam: In general she is awake and alert, fatigued but no distress. HEENT normocephalic atraumatic mucous membranes are moist. Cardio is distant. Lungs are faint increase in bibasilar rales compared to prior days, otherwise clear no other rales rhonchi or wheezes good effort no accessory muscle use. Skin shows no rashes no pallor or icterus. Abdomen is soft nondistended nontender. Neuro without focal deficits. Results & Data Results & Data ([facility]) Vital Signs (Past 12 Hours) Vital Signs Temp Pulse Pulse Resp BP Pulse Ox 04/19/21 16:00 88 04/19/21 15:20 99.1 F 76 20 97/72 L 93 04/19/21 15:10 74 20 91 04/19/21 11:58 99.9 F H 80 21 113/80 90 04/19/21 11:45 79 20 89 L 04/19/21 10:00 90 04/19/21 07:38 99.3 F 94 H 19 119/76 93 04/19/21 07:30 78 22 97 PG Care Time/CCT Total # of Minutes Spent Total Time Spent with Patient: Total time spent is greater than 50% in coordination of care (as documented) at patient's floor/unit and/or counseling patient: Coding Level of Care Code 01885 Subseq Hosp Care Lvl 3 Diagnoses Pneumonia due to COVID-19 virus U07.1; J12.82 Acute metabolic encephalopathy G93.41 Hypoxia R09.02 History of CVA (cerebrovascular accident) Z86.73 Adrenal insufficiency E27.40 Elevated troponin R77.8 Nausea R11.0 GERD (gastroesophageal reflux disease) K21.9 Bacteremia R78.81 Transaminitis R74.01 Rheumatoid arthritis M06.9 Back pain M54.9 Fibromyalgia M79.7
[2021-04-19] MEDS: FOLIC ACID 1 MG TAB PO SCH (21:19)
[2021-04-19] MEDS: PREGABALIN 150 MG CAP PO SCH (21:19)
[2021-04-19] MEDS: DULoxetine HCL 30 MG CAP PO SCH (21:19)
[2021-04-19] MEDS: ALPRAZolam 0.5 MG TABLET PO PRN (22:53)
[2021-04-20 08:02] LABS: Mean Corpuscular Hgb Conc 33.6 g/dL (32-36); Mean Platelet Volume 10.8 fL (7.4-10.4); Nucleated RBC % (auto) 3.7 %; Platelet Count 705 K/uL (130-400)
[2021-04-20] MEDS: FUROSEMIDE 40 MG/4 ML VIAL IV SCH (08:11)
[2021-04-20] MEDS: ALPRAZolam 0.5 MG TABLET PO PRN (08:11)
[2021-04-20] MEDS: ZINC SULFATE 220 MG CAPSULE PO SCH (08:16)
[2021-04-20] MEDS: ASPIRIN 81 MG ECTAB PO SCH (08:16)
[2021-04-20] MEDS: OXYBUTYNIN CHLORIDE XL 5 MG TABCR PO SCH (08:16)
[2021-04-20] MEDS: LACTOBACILLUS ACIDOPHILUS 1 GM PACK PO SCH ×3 (08:16→16:11)
[2021-04-20] MEDS: MULTIVITAMIN TAB PO SCH (08:16)
[2021-04-20] MEDS: FAMOTIDINE 20 MG TAB PO SCH ×2 (08:17→20:38)
[2021-04-20] MEDS: ENOXAPARIN 80 MG/0.8 ML SYR SQ SCH ×2 (08:17→20:36)
[2021-04-20] MEDS: CHOLECALCIFEROL 1,000 UNITS 25 MCG TAB PO SCH (08:17)
[2021-04-20] MEDS: PANTOprazole 40 MG TAB PO SCH ×2 (08:17→20:38)
[2021-04-20] MEDS: CLOPIDOGREL BISULFATE 75 MG TAB PO SCH (08:17)
[2021-04-20] MEDS: SUCRALFATE 1 GM/10 ML UDC PO SCH ×4 (08:22→20:37)
[2021-04-20 08:39] LABS: ALC (manual) 4.16 K/uL (1.2-3.4); ANC (manual) 2.67 K/uL (1.4-6.5); Acanthocytes 1+; Basophils # (manual) 0.22 K/uL (0-0.2); Basophils % (manual) 2.7 %; Eosinophils # (manual) 0.22 K/uL (0-0.5); Eosinophils % (manual) 2.7 %; Hematocrit (blood only) 40.2 % (37-47); Hemoglobin 13.5 g/dL (12.0-16.0); Howell-Jolly Bodies 1+; Lymphocytes # (manual) 4.16 K/uL (1.2-3.4); Lymphocytes % (manual) 50.5 %; Mean Corpuscular Hemoglobin 31.8 pg (25-34); Mean Corpuscular Volume 94.6 fL (80-100); Metamyelocytes # (manual) 0.07 K/uL (0-0); Metamyelocytes % (manual) 0.9 %; Monocytes # (manual) 0.59 K/uL (0.11-0.59); Monocytes % (manual) 7.2 %; Myelocytes % (manual) 3.6 %; Neutrophils # (manual) 2.67 K/uL (1.4-6.5); Neutrophils % (manual) 32.4 %; RDW Coefficient of Variation 15.2 % (11.5-14.5); RDW Standard Deviation 51.5 fL (36.4-46.3); Red Blood Count 4.25 M/uL (4.2-5.4); Target Cells 1+; White Blood Count 8.23 K/uL (4.8-10.8)
[2021-04-20] MEDS: AZITHROMYCIN 250 MG in DEXTROSE 5% 250 ML IV SCH (09:38)
[2021-04-20 10:25] LABS: Albumin Level 2.3 gm/dl (3.4-5.0); BUN Creatinine Ratio 21.7 (10-20); Calcium 9.6 mg/dl (8.5-10.1); Creatinine Clr Calc Pharmacy 49.8 ml/min; Est GFR (African American) 64.8 ml/min; Est GFR (Non-African American) 55.9 ml/min; Potassium 4.6 mmol/L (3.5-5.1)
[2021-04-20 10:26] LABS: Albumin Globulin Ratio 0.5 (0.9-2); Bilirubin,Total 0.5 mg/dl (0.2-1); C Reactive Protein 6.63 mg/dl (0-0.29); Globulin 4.6 gm/dl (2.5-4.0); Total Protein 6.9 gm/dl (6.4-8.2)
[2021-04-20] MEDS: dexAMETHasone 6 MG in SYRINGE 0 ML IV SCH (11:03)
--- NOTE | 2021-04-20 14:42 | Hospitalist Progress Note ---
Date of Service April 20, 2021 Assessment & Plan (1) Pneumonia due to COVID-19 virus: Plan: Severe, with resulting ARDS. Probable element of acute diastolic CHF. Illness complicated by PEs. Day #11 of IV dexamethasone. Was never a candidate for Remdesivir or Baricitinib. s/p 5-day course of azithromycin - will stop after today's dose. Given her severe disease, ongoing elevated CRP, and high FiO2 requirements will increase dexamethasone to 10mg/day. Add bronchodilators q4h. Incentive spirometry. Flutter valve. Encouraged to prone as much as possible. Cont CPAP at HS. Cont HFNC during the day. Cont diuresis with IV lasix. (2) Acute respiratory failure with hypoxia: Plan: 2nd to severe COVID-19 pneumonia, ARDs, PEs, +/- pulmonary edema. See above. (3) Pulmonary emboli: Plan: Cont lovenox BID. Adjust dose to 70mg BID given her weight loss/diuresis during her stay. (4) Acute metabolic encephalopathy: Plan: 2nd to COVID-19 infection. Resolved, mental status appears back to baseline. (5) History of CVA (cerebrovascular accident): Plan: Continue aspirin and clopidogrel for secondary prevention. MRI brain neg for acute CVA. (6) Adrenal insufficiency: Plan: Holding oral hydrocortisone. Cont IV dexamethasone - increasing the dose today as in #1. (7) Elevated troponin: Plan: Likely myocardial demand ischemia from COVID-19 infection. (8) Nausea: Plan: Improved. Remains on H2 kary, PPI, marinol, and carafate. Plan to start weaning these meds tomorrow depending on how she is doing. (9) GERD (gastroesophageal reflux disease): Plan: PPI H2 kary (10) Transaminitis: Plan: Elevated AST 2nd to COVID-19 infection Trend (11) Rheumatoid arthritis: Plan: Remains on usual chronic meds including baclofen, duloxetine, morphine, pregabalin and trazodone Methotrexate on hold On stress dose steroids in the form of IV dexamethasone (12) Fibromyalgia: Plan: See above (13) Candidiasis of mouth and esophagus: Plan: start nystatin 5cc qid swish/spit (14) Thrombocytosis: Plan: likely reactive to her severe illness trend Plan: called both #'s listed in chart for patient's no answer, unable to leave messages Admission and Anticipated Discharge Date Admission Date: April 10, 2021 Subjective patient with mild cough GARRIDO with minimal activity no chest pain no abdominal pain she is trying to lay on side minimal time proning per staff she is using HFNC during the day and CPAP at HS appetite has improved Review of Systems Review of Systems: gen - no fevers or chills CV - no chest pain, no orthopnea pulm - no sputum GI - no abd pain, no nausea, no vomiting Physical Exam Physical Exam: gen - looks sick, weak mouth - thrush plaques buccal mucosa neck - no JVD heart - RRR, s1 s2 lungs - rales right lung, very poor airation b/l, mild rhonchi left base abd - soft NT ND BS+ ext - no edema, pulses 2+ b/l psych - a/o x 3 Results & Data Results & Data ([facility]) Vital Signs (Past 12 Hours) Vital Signs Temp Pulse Pulse Resp BP Pulse Ox 04/20/21 13:17 91 04/20/21 11:22 73 04/20/21 11:17 96 H 26 H 95 04/20/21 10:58 36.8 C 110 H 22 110/62 04/20/21 08:47 36.8 C 82 22 100/87 89 L 04/20/21 07:41 78 22 96 04/20/21 05:49 94 04/20/21 04:25 36.8 C 63 20 134/84 92 04/20/21 03:09 61 04/20/21 03:07 61 25 H 99 Laboratory Results Laboratory Results - last 24 hr 04/20/21 04/20/21 04/20/21 07:37 07:37 09:37 WBC 8.23 RBC 4.25 Hgb 13.5 Hct 40.2 MCV 94.6 MCH 31.8 MCHC 33.6 RDW Std Deviation 51.5 H RDW Coeff of Verónica 15.2 H Plt Count 705 H MPV 10.8 H Absolute Nucleated RBC 0.30 H Nucleated RBC % (auto) 3.7 Neutrophils % (Manual) 32.4 Lymphocytes % (Manual) 50.5 Monocytes % (Manual) 7.2 Eosinophils % (Manual) 2.7 Basophils % (Manual) 2.7 Metamyelocytes % (Man) 0.9 Myelocytes % (Man) 3.6 Neutrophils # (Manual) 2.67 Total Absolute Neuts 2.67 Lymphocytes # (Manual) 4.16 H Total Abs Lymphocytes 4.16 H Monocytes # (Manual) 0.59 Eosinophils # (Manual) 0.22 Basophils # (Manual) 0.22 H Metamyelocytes # (Man) 0.07 H Myelocytes # (Manual) 0.30 H Target Cells 1+ [place] Bodies 1+ Acanthocytes (Spur) 1+ Sodium 134 L Potassium 4.6 Chloride 101 Carbon Dioxide 25 Anion Gap 8.0 BUN 23 H Creatinine 1.04 Est Cr Clr Drug Dosing 49.8 Est GFR ( Amer) 64.8 Est GFR (Non-Af Amer) 55.9 BUN/Creatinine Ratio 21.7 H Glucose 78 Calcium 9.6 Total Bilirubin 0.5 AST 42 H ALT 73 Alkaline Phosphatase 83 C-Reactive Protein 6.63 H Total Protein 6.9 Albumin 2.3 L Globulin 4.6 H Albumin/Globulin Ratio 0.5 L Procalcitonin 0.12 PG Care Time/CCT Total # of Minutes Spent Total Time Spent with Patient: Total time spent is greater than 50% in coordination of care (as documented) at patient's floor/unit and/or counseling patient: Coding Level of Care Code 02860 Subseq Hosp Care Lvl 3 Diagnoses Pneumonia due to COVID-19 virus U07.1; J12.82 Acute metabolic encephalopathy G93.41 History of CVA (cerebrovascular accident) Z86.73 Adrenal insufficiency E27.40 Elevated troponin R77.8 Nausea R11.0 GERD (gastroesophageal reflux disease) K21.9 Transaminitis R74.01 Rheumatoid arthritis M06.9 Fibromyalgia M79.7 Pulmonary emboli I26.99 Acute respiratory failure with hypoxia J96.01 Candidiasis of mouth and esophagus B37.81; B37.0 Thrombocytosis D75.839
[2021-04-20] MEDS ORDERED: dexAMETHasone 4 MG in SYRINGE 0 ML IV ONE (15:00)
[2021-04-20] MEDS: ALBUTEROL HFA 8 GM INHALER INH SCH ×3 (16:43→23:13)
[2021-04-20] MEDS: NYSTATIN SUSP 500,000 U/5 ML UDC PO SCH ×2 (17:34→20:37)
[2021-04-20] MEDS: FOLIC ACID 1 MG TAB PO SCH (20:38)
[2021-04-20] MEDS: DULoxetine HCL 30 MG CAP PO SCH (20:38)
[2021-04-20] MEDS: PREGABALIN 150 MG CAP PO SCH (20:38)
[2021-04-21] MEDS: ALBUTEROL HFA 8 GM INHALER INH SCH ×3 (03:43→10:35)
[2021-04-21 06:54] LABS: Hematocrit (blood only) 37.4 % (37-47); Hemoglobin 12.9 g/dL (12.0-16.0); Mean Corpuscular Hemoglobin 32.6 pg (25-34); Mean Corpuscular Hgb Conc 34.5 g/dL (32-36); Mean Corpuscular Volume 94.4 fL (80-100); Mean Platelet Volume 10.8 fL (7.4-10.4); Nucleated RBC # (auto) 0.24 K/uL (0-0); Nucleated RBC % (auto) 2.3 %; Platelet Count 918 K/uL (130-400); RDW Coefficient of Variation 15.1 % (11.5-14.5); RDW Standard Deviation 50.6 fL (36.4-46.3); Red Blood Count 3.96 M/uL (4.2-5.4); White Blood Count 10.41 K/uL (4.8-10.8)
[2021-04-21 07:23] LABS: BUN Creatinine Ratio 23.5 (10-20); Calcium 9.6 mg/dl (8.5-10.1); Creatinine Clr Calc Pharmacy 58.3 ml/min; Est GFR (African American) 71.4 ml/min; Est GFR (Non-African American) 61.6 ml/min; Magnesium 2.5 mg/dl (1.8-2.4); Potassium 4.1 mmol/L (3.5-5.1)
[2021-04-21] MEDS: OXYBUTYNIN CHLORIDE XL 5 MG TABCR PO SCH (08:12)
[2021-04-21] MEDS: CLOPIDOGREL BISULFATE 75 MG TAB PO SCH (08:13)
[2021-04-21] MEDS: ZINC SULFATE 220 MG CAPSULE PO SCH (08:13)
[2021-04-21] MEDS: dexAMETHasone 10 MG in SYRINGE 0 ML IV SCH (08:13)
[2021-04-21] MEDS: ASPIRIN 81 MG ECTAB PO SCH (08:13)
[2021-04-21] MEDS: CHOLECALCIFEROL 1,000 UNITS 25 MCG TAB PO SCH (08:13)
[2021-04-21] MEDS: SULFAMETHOXAZOLE/TRIMETHOPRIM DS 800/160MG TAB PO SCH (08:13)
[2021-04-21] MEDS: MULTIVITAMIN TAB PO SCH (08:13)
[2021-04-21] MEDS: FAMOTIDINE 20 MG TAB PO SCH ×2 (08:13→20:03)
[2021-04-21] MEDS: ENOXAPARIN 80 MG/0.8 ML SYR SQ SCH ×2 (08:14→20:01)
[2021-04-21] MEDS: LACTOBACILLUS ACIDOPHILUS 1 GM PACK PO SCH ×3 (08:14→16:05)
[2021-04-21] MEDS: PANTOprazole 40 MG TAB PO SCH ×2 (08:15→20:02)
[2021-04-21] MEDS: NYSTATIN SUSP 500,000 U/5 ML UDC PO SCH ×4 (08:15→20:03)
[2021-04-21] MEDS: SUCRALFATE 1 GM/10 ML UDC PO SCH ×4 (08:16→20:01)
[2021-04-21] MEDS: ALPRAZolam 0.5 MG TABLET PO PRN ×2 (08:59→20:00)
[2021-04-21] MEDS: FUROSEMIDE 40 MG/4 ML VIAL IV SCH (09:26)
[2021-04-21] MEDS ORDERED: LORazepam 2 MG/4 ML VIAL ONE (10:58)
[2021-04-21] MEDS: LEVALBUTEROL 1.25MG/0.5ML NEB INH SCH ×2 (12:07→19:51)
[2021-04-21] MEDS: IPRATROPIUM BROMIDE NEB SOLN 0.02% 2.5 ML VIAL INH SCH ×2 (12:07→19:51)
[2021-04-21] MEDS ORDERED: ALBUTEROL HFA 8 GM INHALER INH PRN (12:09)
--- NOTE | 2021-04-21 12:42 | XRay Report ---
XR chest 1V portable HISTORY: Hypoxia. Shortness of breath. covid-19, ards COMPARISON: Chest 04/19/2021. FINDINGS: No pneumothorax. No pleural effusions. The heart is normal in size. There are poststernotom y changes. There are hazy bibasilar airspace opacities most pronounced within the left lower lobe. Mi ld diffuse interstitial thickening persists.. IMPRESSION: Slight improvement in the hazy bibasilar airspace opacities likely representing a viral pneumonia. ACT 112: Negative or not required by law. Electronically signed by: Deonte Rolon M.D. 04/21/2021 12:41 PM
[2021-04-21] MEDS ORDERED: FUROSEMIDE INJ 20 MG/2 ML VIAL IV ONE (16:00)
[2021-04-21] MEDS: LORazepam 0.25 MG/0.5 ML VIAL IV PRN ×2 (17:51→23:20)
--- NOTE | 2021-04-21 17:59 | Hospitalist Progress Note ---
Date of Service April 21, 2021 Assessment & Plan (1) Pneumonia due to COVID-19 virus: Plan: Severe, with resulting ARDS. Probable element of acute diastolic CHF. Continues to diurese. Illness complicated by PEs. Day #12 of IV dexamethasone. Dexamethasone was increased to 10mg/day yesterday (day 11). Could consider increase to 20mg/day given ongoing, refractory ARDS. Was never a candidate for Remdesivir or Baricitinib. s/p 5-day course of azithromycin. Cont bronchodilators scheduled. Incentive spirometry and flutter when on HFNC, as able. Encouraged to prone as much as possible. If not - side positioning. Cont CPAP at HS. Cont HFNC during the day if able. Cont diuresis with IV lasix. Will give additional dose of IV lasix this afternoon on top of the AM dose. BMP in am. CRP, procal in am. Cont lovenox for PEs. Repeat cxr today - largely unchanged. (2) Acute respiratory failure with hypoxia: Plan: 2nd to severe COVID-19 pneumonia, ARDs, PEs, + pulmonary edema. See above. (3) Pulmonary emboli: Plan: Cont lovenox 1mg/kg BID. (4) Acute metabolic encephalopathy: Plan: 2nd to COVID-19 infection. Resolved - mental status back to baseline. Has capacity regarding decision making (code status, etc). (5) History of CVA (cerebrovascular accident): Plan: Continue aspirin and clopidogrel for secondary prevention. MRI brain neg for acute CVA. (6) Adrenal insufficiency: Plan: Holding oral hydrocortisone. Cont IV dexamethasone as in #1 above. (7) Elevated troponin: Plan: Likely myocardial demand ischemia from COVID-19 infection. (8) Nausea: Plan: Resolved. Remains on H2 kary, PPI, marinol, and carafate. Would stop marinol. (9) GERD (gastroesophageal reflux disease): Plan: PPI H2 kary (10) Transaminitis: Plan: Elevated AST 2nd to COVID-19 infection Repeat ast/alt in am (11) Rheumatoid arthritis: Plan: Remains on usual chronic meds including baclofen, duloxetine, morphine, pregabalin and trazodone Methotrexate on hold On stress dose steroids in the form of IV dexamethasone for #1 above (12) Fibromyalgia: Plan: See above (13) Candidiasis of mouth and esophagus: Plan: nystatin 5cc qid swish/spit (when able to take) (14) Thrombocytosis: Plan: likely reactive to her severe illness trend is on asa/plavix for CVA prevention which will help protect against the high platelet count repeat cbc am Plan: we were able to secure another phone # for pt's , Juan Luis [phone] called this #, no answer called the other 2 phone #'s listed in chart for Juan Luis - unable to leave a message, no answer, etc. did speak with Bridgett Salinas - pt's daughter - at [phone] she [place] explained her mother's critical illness, high risk of worsening/refractory illness, her mother's decision to be a DNR/DNI, etc discussed poor prognosis Bridgett mentioned that she has another sister and will contact her Bridgett stated she would try to call Juan Luis as no one has been able to reach him Bridgett voiced understanding of her mom's prognosis offered Facetime visit - Bridgett accepted, will arrange this with staff plan of care d/w night resident total time today between bedside visit, multiple phone calls, etc -- 70 minutes - patient is critically ill with poor prognosis Admission and Anticipated Discharge Date Admission Date: April 10, 2021 Subjective tele overnight - sinus tach, or NSR upon entering the patient's room she was sitting up in bed, taking her CPAP mask off, stating "I can't breath" she reported feeling very anxious her O2 sats promptly dropped to about 60% without the CPAP in place we were able to resecure the CPAP mask and O2 sats climbed to >90% I ordered ativan 0.25mg IV x 1 which helped nicely to calm her anxiety patient reports significant dyspnea, anxiety, and feeling poorly she takes xanax on a fairly regular basis at home for anxiety she was unable to be placed back on high-flow NC this am after using CPAP all night last night we had a very lengthy discussion about her current status (critical/tenuous), what to do plan of care-wall, code status, etc told her that after CPAP we only have intubation/mech ventilation multiple times she stated she would NOT want intubation/mech ventilation she also stated she would NOT want CPR/chest compressions she voiced understanding of this conversation we discussed that in order to overcome the illness we would have to continue using a combo of the CPAP with HFNC I encouraged her to continue side or prone positioning when I asked her if she wanted to "push on" with the care plan above she said yes thus, we will continue CPAP alternating with HFNC (as tolerated) I asked the patient if she had spoken with her and she said no; she reported she hadn't spoken to him in multiple days Review of Systems Review of Systems: gen - poor appetite, fatigue, weakness; no fevers/chills cv - no chest pain pulm - dyspnea, cough GI - no N/V psych - very anxious Physical Exam Physical Exam: gen - initially was in significant distress as noted in my HPI; after reapplication of her CPAP her distress improved; very anxious, but awake, alert, oriented neck - no JVD heart - tachy, regular rhythm, s1 s2, no obvious murmur lungs - ongoing poor airation b/l; dry, fine rales b/l scattered; decreased BS left base; distress as noted above abd - soft NT ND BS+ ext - no edema, pulses 2+ b/l psych - a/o x 3; anxious Results & Data Results & Data ([facility]) Vital Signs (Past 12 Hours) Vital Signs Temp Pulse Pulse Resp BP Pulse Ox 04/21/21 16:20 36.8 C 110 H 22 110/64 96 04/21/21 15:33 103 H 27 H 97 04/21/21 12:03 36.9 C 100 H 24 109/62 95 04/21/21 10:40 106 H 18 92 04/21/21 10:37 109 H 18 91 04/21/21 08:00 70 04/21/21 07:56 107 H 18 93 04/21/21 07:51 88 18 93 04/21/21 07:13 36.5 C 88 20 131/90 95 Laboratory Results Laboratory Results - last 24 hr 04/21/21 04/21/21 05:56 05:56 WBC 10.41 RBC 3.96 L Hgb 12.9 Hct 37.4 MCV 94.4 MCH 32.6 MCHC 34.5 RDW Std Deviation 50.6 H RDW Coeff of Verónica 15.1 H Plt Count 918 H MPV 10.8 H Absolute Nucleated RBC 0.24 H Nucleated RBC % (auto) 2.3 Sodium 134 L Potassium 4.1 Chloride 99 Carbon Dioxide 26 Anion Gap 9.0 BUN 22 H Creatinine 0.96 Est Cr Clr Drug Dosing 58.3 Est GFR ( Amer) 71.4 Est GFR (Non-Af Amer) 61.6 BUN/Creatinine Ratio 23.5 H Glucose 92 Calcium 9.6 Magnesium 2.5 H Diagnostic Findings Chest X-Ray 04/21/21 11:46 XR chest 1V portable HISTORY: Hypoxia. Shortness of breath. covid-19, ards COMPARISON: Chest 04/19/2021. FINDINGS: No pneumothorax. No pleural effusions. The heart is normal in size. There are poststernotomy changes. There are hazy bibasilar airspace opacities most pronounced within the left lower lobe. Mild diffuse interstitial thickening persists.. IMPRESSION: Slight improvement in the hazy bibasilar airspace opacities likely representing a viral pneumonia. ACT 112: Negative or not required by law. Electronically signed by: Deonte Rolon M.D. 04/21/2021 12:41 PM PG Care Time/CCT Total # of Minutes Spent Total Time Spent with Patient: Total time spent is greater than 50% in coordination of care (as documented) at patient's floor/unit and/or counseling patient: Prolonged Care Time Prolonged Care Time: Yes 70 Coding Level of Care Code 92450 Subseq Hosp Care Lvl 3 (25 - SIGNIFICANT, SEPARATELY IDENTIFIABLE ) Diagnoses Pneumonia due to COVID-19 virus U07.1; J12.82 Acute respiratory failure with hypoxia J96.01 Pulmonary emboli I26.99 Acute metabolic encephalopathy G93.41 History of CVA (cerebrovascular accident) Z86.73 Adrenal insufficiency E27.40 Elevated troponin R77.8 Nausea R11.0 GERD (gastroesophageal reflux disease) K21.9 Transaminitis R74.01 Rheumatoid arthritis M06.9 Fibromyalgia M79.7 Candidiasis of mouth and esophagus B37.81; B37.0 Thrombocytosis D75.839 Additional Codes Prolonged Care Time - Prolonged Care Time: Yes ([id number]) Time Spent (min) 70
[2021-04-21] MEDS ORDERED: IPRATROPIUM BROMIDE NEB SOLN 0.02% 2.5 ML VIAL INH SCH (19:00)
[2021-04-21] MEDS ORDERED: LEVALBUTEROL 1.25MG/0.5ML NEB INH SCH (19:00)
[2021-04-21] MEDS: PREGABALIN 150 MG CAP PO SCH (20:00)
[2021-04-21] MEDS: DULoxetine HCL 30 MG CAP PO SCH (20:01)
[2021-04-21] MEDS: FOLIC ACID 1 MG TAB PO SCH (20:01)
[2021-04-21] MEDS ORDERED: XOPENEX/ATROVENT 1.25mg/0.5MG NEB COMBO NEB SCH (21:00)
[2021-04-22] MEDS: ALPRAZolam 0.5 MG TABLET PO PRN ×2 (06:12→20:08)
[2021-04-22 06:20] LABS: Base Excess VBG 4.5 mEq/L; HCO3 VBG 28 mmol/L; PCO2 VBG 39 mmHg (38-50); PO2 VBG 30 mmHg; pH VBG 7.48 (7.36-7.41)
[2021-04-22 06:29] LABS: Oxygen Saturation VBG < 60.0 %
[2021-04-22 06:42] LABS: Hematocrit (blood only) 41.7 % (37-47); Hemoglobin 14.5 g/dL (12.0-16.0); Mean Corpuscular Hemoglobin 32.7 pg (25-34); Mean Corpuscular Hgb Conc 34.8 g/dL (32-36); Mean Corpuscular Volume 93.9 fL (80-100); Mean Platelet Volume 10.8 fL (7.4-10.4); Nucleated RBC # (auto) 0.37 K/uL (0-0); Nucleated RBC % (auto) 2.2 %; Platelet Count 1100 K/uL (130-400); RDW Coefficient of Variation 15.4 % (11.5-14.5); RDW Standard Deviation 50.7 fL (36.4-46.3); Red Blood Count 4.44 M/uL (4.2-5.4); White Blood Count 16.58 K/uL (4.8-10.8)
[2021-04-22 06:48] LABS: Calcium 10.3 mg/dl (8.5-10.1); Creatinine Clr Calc Pharmacy 41.7 ml/min; Est GFR (African American) 47.3 ml/min; Est GFR (Non-African American) 40.8 ml/min; Potassium 3.8 mmol/L (3.5-5.1)
[2021-04-22 06:49] LABS: C Reactive Protein 6.73 mg/dl (0-0.29)
[2021-04-22 07:18] LABS: Acanthocytes 1+; Basophils # (auto) 0.09 K/uL (0-0.2); Basophils % (auto) 0.5 %; Eosinophils # (auto) 0.08 K/uL (0-0.5); Eosinophils % (auto) 0.5 %; Howell-Jolly Bodies 1+; Immature Granulocytes # (auto) 1.36 K/uL (0.00-0.02); Immature Granulocytes % (auto) 8.2 %; Lymphocytes # (auto) 3.82 K/uL (1.2-3.4); Monocytes # (auto) 0.77 K/uL (0.11-0.59); Monocytes % (auto) 4.6 %; Neutrophils # (auto) 10.46 K/uL (1.4-6.5); Neutrophils % (auto) 63.2 %; Polychromasia 1+; Target Cells 1+; Toxic Vacuolation 1+
[2021-04-22] MEDS: LEVALBUTEROL 1.25MG/0.5ML NEB INH SCH ×2 (07:27→19:45)
[2021-04-22] MEDS: IPRATROPIUM BROMIDE NEB SOLN 0.02% 2.5 ML VIAL INH SCH ×2 (07:28→19:45)
[2021-04-22] MEDS: ASPIRIN 81 MG ECTAB PO SCH (07:53)
[2021-04-22] MEDS: ENOXAPARIN 80 MG/0.8 ML SYR SQ SCH ×2 (07:54→20:09)
[2021-04-22] MEDS: CLOPIDOGREL BISULFATE 75 MG TAB PO SCH (07:54)
[2021-04-22] MEDS: MoRPHine SULFATE IR 15 MG TAB (IMMEDIATE RELEASE) PO PRN (07:54)
[2021-04-22] MEDS: dexAMETHasone 10 MG in SYRINGE 0 ML IV SCH (08:01)
[2021-04-22] MEDS: LACTOBACILLUS ACIDOPHILUS 1 GM PACK PO SCH ×3 (08:50→17:49)
[2021-04-22] MEDS: LORazepam 0.25 MG/0.5 ML VIAL IV PRN (09:01)
[2021-04-22] MEDS: CHOLECALCIFEROL 1,000 UNITS 25 MCG TAB PO SCH (09:20)
[2021-04-22] MEDS: OXYBUTYNIN CHLORIDE XL 5 MG TABCR PO SCH (09:21)
[2021-04-22] MEDS: PANTOprazole 40 MG TAB PO SCH ×3 (09:21→21:44)
[2021-04-22] MEDS: FAMOTIDINE 20 MG TAB PO SCH ×3 (09:21→21:44)
[2021-04-22] MEDS: SUCRALFATE 1 GM/10 ML UDC PO SCH ×3 (09:21→17:49)
[2021-04-22] MEDS: NYSTATIN SUSP 500,000 U/5 ML UDC PO SCH ×3 (09:21→17:49)
[2021-04-22] MEDS: MULTIVITAMIN TAB PO SCH (09:21)
[2021-04-22] MEDS: ZINC SULFATE 220 MG CAPSULE PO SCH (09:26)
[2021-04-22] MEDS ORDERED: dexAMETHasone 10 MG in SYRINGE 0 ML IV ONE (09:45)
--- NOTE | 2021-04-22 11:42 | Hospitalist Progress Note ---
Date of Service April 22, 2021 Assessment & Plan (1) Pneumonia due to COVID-19 virus: Plan: Severe, with resulting ARDS. Illness complicated by PEs. Has had acute diastolic CHF and has been diuresed. Her Creatinine increased today and thus diuresis to be stopped. Day #13 of IV dexamethasone. Dexamethasone was increased to 10mg/day on 04/20/21 due to worsening ARDS. Did give additional 10mg IV x 1 for total of 20mg today for refractory ARDS. Was never a candidate for Remdesivir or Baricitinib. s/p 5-day course of azithromycin. Remains on lovenox BID at therapeutic dosing. Despite aggressive treatment and maximal medical efforts she has continued to wo rsen. Her respiratory distress is worse today. She appears very tired and is fatiguing from respiratory standpoint. After yesterday's discussion, and 2 lengthy discussions at bedside today (last discussion was attended by pt's daughter via FaceTime), patient again has decided to defer on intubation. She has been consistent throughout all discussions that she wishes to be DNR/DNI and simply remain comfortable. Plan - Discussed care with nursing staff and pt's 2 daughters (1 via FaceTime, 1 via phone). I suspect that at some point today or tonight the patient will want the CPAP off. Once that occurs will transition back to HFNC. We will continue morphine and ativan for air hunger/dyspnea and anxiety, respectively. Rosy - Bridgett - lives in [place] and will be flying to [place] with hopes of being here by tomorrow. Daughter in [place] may come to visit as well but that remains uncertain. Once daughters have had chance to visit will transition to full comfort care p athway. Alternatively, if patient worsens tonight, develops worsening distress, or worsening hypoxia - start full comfort care pathway then (even if daughters have not had chance to visit). Keeping the patient comfortable will be paramount moving forward. Bridgett voiced understanding of the fact that her mother may worsen significantly or even pass away before she can get here from [place]. Stop labs. D/c unnecessary meds. Will keep steroids, PPI, anxiety/pain meds, etc on board until daughters arrive. Stop diuresis. Keep lovenox until daughters arrive. (2) ARDS (adult respiratory distress syndrome): Plan: 2nd COVID-19 pneumonia severe refractory to all therapies to date as noted above in #1 (3) Acute respiratory failure with hypoxia: Plan: 2nd to severe COVID-19 pneumonia, ARDs, PEs, + pulmonary edema. See above. (4) Pulmonary emboli: Plan: Cont lovenox 1mg/kg BID tonight, but likely d/c tomorrow. (5) Acute metabolic encephalopathy: Plan: 2nd to COVID-19 infection. Had largely resolved; occasional confusion noted last few days. However, in my opinion, patient still appears to retain capacity regarding decision making (code status, etc). (6) History of CVA (cerebrovascular accident): Plan: Continue aspirin and clopidogrel for secondary prevention. MRI brain neg for acute CVA earlier this admission. Likely d/c both antiplatelet meds tomorrow. (7) Adrenal insufficiency: (8) Elevated troponin: Plan: Likely myocardial demand ischemia from COVID-19 infection. (9) Nausea: Plan: Resolved. (10) GERD (gastroesophageal reflux disease): Plan: PPI (11) Transaminitis: Plan: Elevated AST 2nd to COVID-19 infection (12) Rheumatoid arthritis: Plan: Keep baclofen, duloxetine, morphine, pregabalin and trazodone as these will provide comfort Methotrexate on hold On stress dose steroids in the form of IV dexamethasone for #1 above (13) Fibromyalgia: Plan: See above (14) Candidiasis of mouth and esophagus: Plan: stop nystatin (15) Thrombocytosis: Plan: likely reactive to her severe illness I have seen reactive thrombocytosis with other cases of severe COVID-19 continues to worsen, now >1000 is on asa/plavix for CVA prevention which will help protect against the high platelet count however, we are close to full comfort care measures/pathway Plan: we were able to secure another phone # for pt's , Juan Luis [phone] called this # on 04/21/21, no answer called the other 2 phone #'s listed in chart for Juan Luis - unable to leave a message, no answer, etc. did speak with Bridgett Brad - pt's daughter - at [phone] on 04/21 and today she lives in [place] Bridgett understands her mother is critical and worsening no intubation/mech ventilation per Ms Aguila' wishes likely transition to full comfort once daughters arrive OR if her distress worsens further through the day today or tonight would start full comfort then in meantime - morphine/ativan prn for symptom control if patient wants CPAP off that is fine- change to HFNC if she wants await Bridgett's arrival tomorrow from [place] plan of care again discussed with night resident finally -- Bridgett reports that the police were sent to Juan Luis Sheehan' house Juan Luis did come to door appeared very sick refused to go to hospital by report Juan Luis assumed to have COVID Admission and Anticipated Discharge Date Admission Date: April 10, 2021 Subjective Received notification from the pt's nurse this am that attempts to remove the CPAP (used it overnight) and switch to high-flow NC were not successful. She could not maintain her O2 sats with high-flow. Placed back on CPAP with ultimate return of O2 sats >90%. Upon my arrival patient was asleep with CPAP in place. On the monitor her HR was sinus tach in the 120s. She was tachypneic with RR in the 30s. She had retractions today. She awoke to her name being called. Explained to her that we were at the point where we either proceed with intubation/mech ventilation or transition to comfort care/palliative care. She voiced understanding of the critical nature of her illness. I gave her a few minutes to think about this. I left her room and returned about 15 min later. When I returned her daughter who lives in [facility] was facetiming with her. We discussed the 2 options again. Patient stated - like yesterday - she does NOT want intubation/mech ventilation. She stated she just wanted to be comfortable. Review of Systems Review of Systems: gen - weakness/fatigue cv - no chest pain pulm - severe dyspnea GI - no pain Physical Exam Physical Exam: gen - more tachypneic, in distress with retractions -- despite CPAP in place neck - no JVD heart - tachy, regular rhythm, s1 s2, no obvious murmur lungs - ongoing poor airation b/l; dry, fine rales b/l; decreased BS left base; distress with retractions, tachypneic, accessory muscle use abd - soft NT ND BS+ ext - no edema, pulses 2+ b/l psych - a/o x 3, retains insight into her illness; follows all commands Results & Data Results & Data ([facility]) Vital Signs (Past 12 Hours) Vital Signs Temp Pulse Pulse Pulse Resp BP Pulse Ox 04/22/21 11:34 36.8 C 115 H 22 116/88 93 04/22/21 10:45 122 H 31 H 92 04/22/21 08:47 37.0 C 127 H 22 116/86 85 L 04/22/21 08:00 119 H 04/22/21 07:37 120 H 30 H 93 04/22/21 07:20 118 H 119 H 34 H 90 04/22/21 04:00 36.5 C 114 H 24 122/81 91 04/22/21 02:52 107 H 29 H 97 04/21/21 23:46 110 H 29 H 94 Laboratory Results Laboratory Results - last 24 hr 04/22/21 04/22/21 04/22/21 06:01 06:01 06:01 WBC 16.58 H RBC 4.44 Hgb 14.5 Hct 41.7 MCV 93.9 MCH 32.7 MCHC 34.8 RDW Std Deviation 50.7 H RDW Coeff of Verónica 15.4 H Plt Count 1100 H* MPV 10.8 H Immature Gran % (Auto) 8.2 Neut % (Auto) 63.2 Lymph % (Auto) 23.0 Castro % (Auto) 4.6 Eos % (Auto) 0.5 Baso % (Auto) 0.5 Neut # (Auto) 10.46 H Lymph # (Auto) 3.82 H Castro # (Auto) 0.77 H Eos # (Auto) 0.08 Baso # (Auto) 0.09 Immature Gran # (Auto) 1.36 H Absolute Nucleated RBC 0.37 H Nucleated RBC % (auto) 2.2 Toxic Vacuolation 1+ Polychromasia 1+ Target Cells 1+ [place] Bodies 1+ Acanthocytes (Spur) 1+ VBG pH VBG pCO2 VBG pO2 VBG HCO3 VBG O2 Saturation VBG Base Excess Barometric Pressure Sodium 134 L Potassium 3.8 Chloride 95 L Carbon Dioxide 28 Anion Gap 11.0 BUN 31 H Creatinine 1.35 H D Est Cr Clr Drug Dosing 41.7 Est GFR ( Amer) 47.3 Est GFR (Non-Af Amer) 40.8 BUN/Creatinine Ratio 23.0 H Glucose 104 H Calcium 10.3 H AST 39 H ALT 69 C-Reactive Protein 6.73 H Procalcitonin 0.11 04/22/21 06:01 WBC RBC Hgb Hct MCV MCH MCHC RDW Std Deviation RDW Coeff of Verónica Plt Count MPV Immature Gran % (Auto) Neut % (Auto) Lymph % (Auto) Castro % (Auto) Eos % (Auto) Baso % (Auto) Neut # (Auto) Lymph # (Auto) Castro # (Auto) Eos # (Auto) Baso # (Auto) Immature Gran # (Auto) Absolute Nucleated RBC Nucleated RBC % (auto) Toxic Vacuolation Polychromasia Target Cells [place] Bodies Acanthocytes (Spur) VBG pH 7.48 H VBG pCO2 39 VBG pO2 30 VBG HCO3 28 VBG O2 Saturation < 60.0 VBG Base Excess 4.5 Barometric Pressure 729.2 Sodium Potassium Chloride Carbon Dioxide Anion Gap BUN Creatinine Est Cr Clr Drug Dosing Est GFR ( Amer) Est GFR (Non-Af Amer) BUN/Creatinine Ratio Glucose Calcium AST ALT C-Reactive Protein Procalcitonin PG Care Time/CCT Total # of Minutes Spent Total Time Spent with Patient: Total time spent is greater than 50% in coordination of care (as documented) at patient's floor/unit and/or counseling patient: Coding Level of Care Code 04416 Subseq Hosp Care Lvl 3 Diagnoses Pneumonia due to COVID-19 virus U07.1; J12.82 Acute respiratory failure with hypoxia J96.01 Pulmonary emboli I26.99 Acute metabolic encephalopathy G93.41 History of CVA (cerebrovascular accident) Z86.73 Adrenal insufficiency E27.40 Elevated troponin R77.8 Nausea R11.0 GERD (gastroesophageal reflux disease) K21.9 Transaminitis R74.01 Rheumatoid arthritis M06.9 Fibromyalgia M79.7 Candidiasis of mouth and esophagus B37.81; B37.0 Thrombocytosis D75.839 ARDS (adult respiratory distress syndrome) J80
[2021-04-22] MEDS: PREGABALIN 150 MG CAP PO SCH (20:08)
[2021-04-22] MEDS: DULoxetine HCL 30 MG CAP PO SCH (20:13)
[2021-04-23] MEDS: LORazepam 0.25 MG/0.5 ML VIAL IV PRN ×2 (00:30→09:18)
[2021-04-23] MEDS: IPRATROPIUM BROMIDE NEB SOLN 0.02% 2.5 ML VIAL INH SCH (07:42)
[2021-04-23] MEDS: LEVALBUTEROL 1.25MG/0.5ML NEB INH SCH (07:42)
[2021-04-23] MEDS: MoRPHine SULFATE 2 MG/ML CARP IV PRN ×3 (07:47→11:57)
[2021-04-23] MEDS ORDERED: dexAMETHasone 20 MG in DEXTROSE 5% 25 ML IV SCH (09:00)
[2021-04-23] MEDS ORDERED: dexAMETHasone 20 MG in SYRINGE 0 ML IV SCH (09:00)
[2021-04-23] MEDS ORDERED: haloperidoL 1 MG TAB PO PRN (10:21)
[2021-04-23] MEDS ORDERED: ATROPINE SULFATE 1% OP SOLN 5 ML BTL SL PRN (10:21)
[2021-04-23] MEDS ORDERED: GLYCOPYRROLATE 0.2 MG/ML VIAL IV PRN (10:21)
[2021-04-23] MEDS: ENOXAPARIN 80 MG/0.8 ML SYR SQ SCH (10:28)
[2021-04-23] MEDS: CLOPIDOGREL BISULFATE 75 MG TAB PO SCH (10:28)
[2021-04-23] MEDS: OXYBUTYNIN CHLORIDE XL 5 MG TABCR PO SCH (10:28)
[2021-04-23] MEDS: ASPIRIN 81 MG ECTAB PO SCH (10:28)
[2021-04-23] MEDS: FAMOTIDINE 20 MG TAB PO SCH (10:28)
[2021-04-23] MEDS: PANTOprazole 40 MG TAB PO SCH (10:29)
[2021-04-23] MEDS ORDERED: LORazepam 0.5 MG/1 ML VIAL IV PRN ×2 (11:31→13:00)
[2021-04-23] MEDS ORDERED: STAT IV Infusion **Titration per Protocol STA (11:47)
[2021-04-23] MEDS ORDERED: MoRPHine SULF/NSS 250 MG/250 ML BTL IV SCH (12:00)
--- NOTE | 2021-04-23 15:50 | Death Pronouncement Note ---
Date of Service April 23, 2021 Pronouncement Note Admission Date Admission Date: April 10, 2021 Date and Time of Date of : 04/23/21 Time of : 14:30 Contributing Factors (1) Acute respiratory failure with hypoxia: (2) ARDS (adult respiratory distress syndrome): (3) Pneumonia due to COVID-19 virus: (4) Pulmonary emboli: (5) Transaminitis: (6) Thrombocytosis: (7) Acute metabolic encephalopathy: (8) Adrenal insufficiency: (9) Rheumatoid arthritis: (10) History of CVA (cerebrovascular accident): (11) Elevated troponin: (12) GERD (gastroesophageal reflux disease): (13) Fibromyalgia: (14) Candidiasis of mouth and esophagus: Summary Additional details: see discharge summary from 04/23/21 Additional Data Confirmation of : no pulse, no respirations, no heart sounds and pupils fix ed and dilated Family: at bedside Attending/PCP notified?: Yes Attending physician: Alexis Hensley Was code activated?: No Autopsy requested?: No Coding Level of Care Code None Diagnoses Pneumonia due to COVID-19 virus U07.1; J12.82 ARDS (adult respiratory distress syndrome) J80 Acute respiratory failure with hypoxia J96.01 Pulmonary emboli I26.99 Acute metabolic encephalopathy G93.41 History of CVA (cerebrovascular accident) Z86.73 Adrenal insufficiency E27.40 Elevated troponin R77.8 GERD (gastroesophageal reflux disease) K21.9 Transaminitis R74.01 Rheumatoid arthritis M06.9 Fibromyalgia M79.7 Candidiasis of mouth and esophagus B37.81; B37.0 Thrombocytosis D75.839
--- NOTE | 2021-04-24 12:44 | Discharge Summary ---
Date of Service date of admission - April 10, 2021 date of - April 23, 2021 time of - 1430 Admission HPI Per Admitting Provider The patient is a 65-year-old female with a past medical history including history of CVA, GERD, adrenal insufficiency, fibromyalgia, asthma, rheumatoid arthritis, migraines, lumbar spinal stenosis with neurogenic claudication, and anxiety with depression. The patient is not able to contribute significantly to her HPI or review of systems due to altered mentation. She does open her eyes briefly, but reports that her baseline is to be capable of caring on normal conversation. Upon questioning, her does report that she has had difficulty controlling her secretions, and has had intermittent issues recently with choking. Principal Diagnosis 1. acute hypoxic respiratory failure 2nd to ARDS from COVID-19 pneumonia 2. pulmonary emboli in the setting of COVID-19 infection Discharge Exam last examination prior to transition to full comfort care measures: gen - more tachypneic, in distress with retractions -- despite high-flow NC neck - no JVD heart - tachy, regular rhythm, s1 s2, no obvious murmur lungs - diffuse dry, fine rales b/l; severe respiratory distress with tachypnea, retractions, accessory muscle use, pursed lips, cyanosis abd - soft NT ext - no edema psych - not alert, not oriented, lethargic Discharge Data Allergies Allergy/AdvReac Type Severity Reaction Status Date / Time fentanyl Allergy Mild skin Verified 04/10/21 11:26 irritation - patch gabapentin [From Neurontin] AdvReac Mild shaky Verified 04/10/21 11:26 Procedures Performed Echocardiogram Ordered Studies 04/10/21 02:20 CT head/brain wo con Urgent 04/10/21 06:42 MR brain wo con Stat 04/15/21 08:23 CT angio chest PE protocol Urgent Hospital Course (1) Palliative care patient: The patient developed severe acute hypoxic respiratory failure due to ARDS from severe COVID-19 pneumonia. Her COVID-19 illness was complicated by pulmonary emboli and volume overload/pulmonary edema as well. For many days she was on max settings of high-flow nasal cannula during the day, and CPAP at night. Then, in the days prior to transition to full comfort care, she had essentially become CPAP-dependent. Multiple discussions were held with the patient as her COVID-19 pneumonia worsened. She was counseled that she needed intubation with mechanical ventilation in order to survive. She consistently declined intubation/mech ventilation and CPR. She was made a DNR/DNI. Despite occasional/intermittent confusion she voiced understanding of her condition and retained the capacity to continue medical decision making. Her 2 daughters were contacted and informed of their mother's wishes and her ongoing decline. On the evening of 04/22/21 we began to institute a comfort care/palliative care pathway, and then on the AM of 04/23/21 full comfort care measures were instituted including use of morphine infusion. She was moved from the COVID unit to a private negative pressure room on the floor. Her daughters and (and ex-) were able to visit with her on 04/23/21 before her passing. The patient passed peacefully at 1430 on 04/23/21. (2) Acute respiratory failure with hypoxia: 2nd to severe COVID-19 pneumonia, ARDs, PEs, + pulmonary edema. See above. (3) ARDS (adult respiratory distress syndrome): 2nd COVID-19 pneumonia severe refractory to all therapies (4) Pneumonia due to COVID-19 virus: Severe, with resulting ARDS. Illness complicated by PEs. Had had acute diastolic CHF and received diuresis. Steroid therapy - IV dexamethasone 6mg daily since day of admission. Dexamethasone was increased to 10mg/day on 04/20/21 due to worsening ARDS. Did give additional 10mg IV x 1 for total of 20mg on 04/22/21 for refractory/late- stage ARDS. Was never a candidate for Remdesivir or Baricitinib. Received 5-day course of azithromycin. Lovenox 1mg/kg BID for PEs. Despite aggressive treatment and maximal medical efforts she continued to worsen. Patient declined intubation/mechanical ventilation on 04/21/21 and 04/22/21. Patient made DNR/DNI on 04/21/21. Transitioned to full comfort care measures AM of 04/23/21 including use of morphine infusion for severe respiratory distress. (5) Pulmonary emboli: Had received lovenox 1mg/kg BID until being made comfort care (6) Transaminitis: Elevated AST 2nd to COVID-19 infection (7) Thrombocytosis: likely reactive to her severe illness. severe, with level of >1000 prior to being made comfort care. (8) Acute metabolic encephalopathy: 2nd to COVID-19 infection. Had largely resolved shortly after admission. Later in her stay she had occasional confusion but intermittent and mild only. However, patient still retained capacity regarding decision making (code status, etc). (9) Adrenal insufficiency: Chronic condition. (10) Rheumatoid arthritis: Long-standing, on methotrexate prior to admission. (11) History of CVA (cerebrovascular accident): MRI brain neg for acute CVA early in admission. MRI brain showed her old infarct. (12) Elevated troponin: Likely myocardial demand ischemia from COVID-19 infection. (13) GERD (gastroesophageal reflux disease): (14) Fibromyalgia: (15) Candidiasis of mouth and esophagus: 2 visits to pt's room on day of - first was in the AM as we transitioned her to full comfort care measures. 2nd visit was to pronounce her later in the day. Total Time Total Time Spent Total Time Spent (In Minutes): 45 Discharge Plan Discharge Items Patient Disposition: Other Date/Time: 04/23/21 14:30 Coding Level of Care Code D/C DAY MANAGEMENT >30 MINS Diagnoses Acute respiratory failure with hypoxia J96.01 ARDS (adult respiratory distress syndrome) J80 Pneumonia due to COVID-19 virus U07.1; J12.82 Pulmonary emboli I26.99 Transaminitis R74.01 Thrombocytosis D75.839 Acute metabolic encephalopathy G93.41 Adrenal insufficiency E27.40 Rheumatoid arthritis M06.9 History of CVA (cerebrovascular accident) Z86.73 Elevated troponin R77.8 GERD (gastroesophageal reflux disease) K21.9 Fibromyalgia M79.7 Candidiasis of mouth and esophagus B37.81; B37.0 Palliative care patient Z51.5
--- NOTE | 2021-05-21 08:33 | Coding Query ---
To promote full compliance with coding requirements relating to patient care, provider participation is requested in all cases of water filtration technician uncertainty. Please assist us with the question(s) below: Coding Question(s): The diagnosis below was documented in the H&P and progress notes through 04/15/21 then subsequently fell off all further documentation. Please indicate if it is still a possible diagnosis or ruled out. Physician's Response(s): ASPIRATION PNEUMONIA ( ) Diagnosed and POA ( ) Diagnosed and not POA ( x ) Ruled out ( x ) Other (please specify) -- pneumonia was due to COVID-19 MTDD
--- NOTE | 2021-05-21 08:35 | Coding Query ---
PRESENT ON ADMISSION QUERY To promote full compliance with coding requirements relating to pateint care, physician participation is requested in all cases of director of physical education uncertainty. Please assist us with the question(s) below: Please place an X within the parenthesis (x). The following diagnosis listed in this patient's medical record requires physician assistance to determine if it was present on admission (POA) or not. Please advise for each diagnosis whether it was present on admission, not present on admission, or if it was clinically undetermined. 1.PULMONARY EMBOLISM ( ) Present On Admission ( x) Not Present On Admission ( ) Clinically Undetermined Thank you Preeti Reed *Definition of the present on admission (POA)-Present on admission is defined as present at the time the order for inpatient admission occurs. Conditions that develop during an outpatient encounter prior to a written order for inpatient admission (including emergency department, observation, or outpatient surgery) are considered present on admission. TIFFANIED
== END 2021-04-23 16:59 | disposition expired | DRG 177 ==
LOC: ED 01:49 → EDINP 06:24 → SUATTDRO 06:24 → 2S 12:24 → 2E 04-16 17:31 → 3E 04-23 13:02
DX: J12.82 Pneumonia due to coronavirus disease 2019; K21.9 Gastro-esophageal reflux disease without esophagitis; Z79.891 Long term (current) use of opiate analgesic; M06.9 Rheumatoid arthritis, unspecified; Z86.73 Personal history of transient ischemic attack (TIA), and cerebral infarction without residual deficits; A08.39 Other viral enteritis; N32.81 Overactive bladder; Z51.5 Encounter for palliative care; Z79.82 Long term (current) use of aspirin; Z79.02 Long term (current) use of antithrombotics/antiplatelets; Z66 Do not resuscitate; R74.01 Elevation of levels of liver transaminase levels; J80 Acute respiratory distress syndrome; Z88.8 Allergy status to other drugs, medicaments and biological substances; B37.0 Candidal stomatitis; M79.7 Fibromyalgia; I24.8 Other forms of acute ischemic heart disease; U07.1 COVID-19; G93.41 Metabolic encephalopathy; Z79.899 Other long term (current) drug therapy; Z79.890 Hormone replacement therapy; M48.062 Spinal stenosis, lumbar region with neurogenic claudication; E27.40 Unspecified adrenocortical insufficiency; D75.839 Thrombocytosis, unspecified; Z88.5 Allergy status to narcotic agent; I26.99 Other pulmonary embolism without acute cor pulmonale; Z90.81 Acquired absence of spleen; I50.31 Acute diastolic (congestive) heart failure; E87.6 Hypokalemia; R09.02 Hypoxemia; Z79.52 Long term (current) use of systemic steroids; F41.8 Other specified anxiety disorders